=== PATIENT | male | born 1950 | race Caucasian/White ===

== ENCOUNTER → 2017-11-26 | Outpatient (RCR) | payer MEDICARE ==
[~2017-11-26] MED LIST: ATENOLOL25 MG PO; ATORVASTATIN CA40 MG PO; BYSTOLIC10 MG PO; CALCIUM 1,2001 EACH PO; CINNAMON PO; COLACE100 MG PO; CYCLOBENZAPRINE PO; CYCLOBENZAPRINE5 MG PO; ENALAPRIL PO; FLAXSEED OIL1000 M1 PO; GINKGO BILOBA120 MG PO; GLIPIZIDE-METF1 EAC2 PO; GLYBURIDE-METF1 EAC1 PO; HYDROCODONE-IBU1 TAB PO; IV ANTIBIOTIC IV; LEVAQUIN500 MG PO; NORCO 10-325 T1 EACH PO; POTASSIUM GLUCO99 M1 PO; RASPBERRY KETONES PO; SUPER B COMPLE150 MG PO; TART CHERRY CA1 EACH PO; TYLENOL WITH C1 EACH PO; VITAMIN B1 PO; VITAMIN B12 PO; VITAMIN D2000 UNIT PO; ZOFRAN ODT4 MG SL; ZYRTEC10 M1 PO
== END ==
LOC: WCC 11-19 14:45
PROVIDERS: ATTEND Internal Medicine Infectious Disease
DX: E11.621 Type 2 diabetes mellitus with foot ulcer (principal); M86.172 Other acute osteomyelitis, left ankle and foot; L97.426 Non-pressure chronic ulcer of left heel and midfoot with bone involvement without evidence of necrosis; I10 Essential (primary) hypertension; E78.2 Mixed hyperlipidemia; I48.2 Chronic atrial fibrillation
CPT/HCPCS: 11043; 11046; 36415 ×2; 82948 ×2; G0277 ×2; G0463 ×3

== ENCOUNTER → 2017-12-02 | Day surgery (SDC) | payer MEDICARE ==
[2017-12-01 12:21] LABS: BASOPHILS # (AUTO) 0.1 (0.0-0.1); BASOPHILS % 0.6 % (0.0-1.0); EOSINOPHILS # (AUTO) 0.7 (0.0-0.4); EOSINOPHILS % 9.2 % (0.0-6.0); HEMATOCRIT 30.5 % (38.2-49.6); HEMOGLOBIN 9.7 g/dL (14.0-18.0); LYMPHOCYTES # (AUTO) 1.7 (1.0-3.2); LYMPHOCYTES % 22.2 % (18.0-39.1); MEAN CORPUSCULAR HEMOGLOBIN 29.5 pg (28-32); MEAN CORPUSCULAR HGB CONC 31.8 g/dL (31-35); MEAN CORPUSCULAR VOLUME 92.7 fL (81-99); MONOCYTES # (AUTO) 0.7 (0.2-0.8); MONOCYTES % 8.3 % (4.4-11.3); NEUTROPHILS # (AUTO) 4.6 (2.1-6.9); NEUTROPHILS % 59.6 % (38.7-80.0); PLATELET COUNT 223 x10e3/uL (140-360); RED BLOOD COUNT 3.29 x10e6/uL (4.3-5.7); RED CELL DISTRIBUTION WIDTH 14.1 % (11.7-14.4)
[2017-12-01 12:40] LABS: ANION GAP 14.1 mmol/L (8-16); CALCIUM 10.4 mg/dL (8.4-10.2); CREATININE, SERUM 1.26 mg/dL (0.72-1.25)
--- NOTE | 2017-12-01 13:10 | Diagnostic Imaging Report ---
PROCEDURE:CHEST 2 VIEWS TECHNIQUE:And lateral chest INDICATION:Preoperative evaluation for diabetic left foot wound surgery. COMPARISON:None. FINDINGS: Right PICC terminating in the low SVC. Lungs are clear and no pleural effusions. Normal heart size, mediastinal contour, and pulmonary vasculature. Intact skeleton. CONCLUSION: No acute abnormality. Dictated by: Keith Whaley M.D. on 12/01/2017 at 13:19 Electronically approved by: Keith Whaley M.D. on 12/01/2017 at 13:19
[2017-12-01 13:31] LABS: POTASSIUM 6.3 mmol/L (3.5-5.1)
[~2017-12-02] MED LIST changes: +CEFAZOLIN SOD 2 GM/D5W 50ML 50 ML IV ONE; +DEXAMETHASONE SOD PHOS INJ 4 MG/ML VIAL ONE; +FENTANYL CITRATE/PF 100MCG/2 ML INJ ONE; +LIDOCAINE HCL 2% LOCAL INJ 5 ML SDV VIAL INJ ONE; +MIDAZOLAM HCL 2 MG/2 ML VIAL ONE; +ONDANSETRON HCL INJ 2 MG/ML VIAL ONE; +PROPOFOL IV EMULSION 10 MG/ML 20 ML VIAL ONE; +SEVOFLURANE INHAL SOLN 250 ML PEN BTL ONE
--- OUTSIDE RECORDS SUMMARY | 2017-12-02 06:39 | XMS REPORT ---
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 Allergies, Adverse Reactions, Alerts This patient has no known allergies or adverse reactions. Medications This patient has no known medications. Results Test Description Test Time Test Comments Text Results Atomic Results Result Comments TISSUE EXAM 2017-01-28 12:43:00 LAB AP CPT CODE (BEAKER) (test ugry=4605) 27330 ANAEROBIC [id number] 12:54:00* Test Item Value Reference Range Comments CULTURE (BEAKER) (test byrv=5520) No anaerobes isolated BLOOD [id number] 11:00:00* Test Item Value Reference Range Comments CULTURE (BEAKER) (test crot=3702) No growth in 5 days SURGICALLY OBTAINED CULTURE + GRAM [id number] 10:42:00* Test Item Value Reference Range Comments CULTURE (BEAKER) (test zrgw=1613) From Broth Only Diphtheroid GRAM STAIN RESULT (BEAKER) (test wxur=7687) <1+ WBCs GRAM STAIN RESULT (BEAKER) (test gctp=14904) No organisms seen BLOOD [id number] 06:00:00* Test Item Value Reference Range Comments CULTURE (BEAKER) (test rfqm=9694) No growth in 5 days POCT-GLUCOSE [id number] 09:17:00* Test Item Value Reference Range Comments POC-GLUCOSE METER (BEAKER) (test kpsu=2769) 140 mg/dL 70-[address] [facility] [address] [place] [address] CBC W/PLT COUNT & AUTO [id number] 06:13:00* Test Item Value Reference Range Comments WHITE BLOOD CELL COUNT (BEAKER) (test gdqr=029) 7.2 K/ L 4.0-10.0 RED BLOOD CELL COUNT (BEAKER) (test otyk=878) 2.61 M/ L 4.20-5.80 HEMOGLOBIN (BEAKER) (test otkr=883) 8.3 GM/DL 13.0-16.8 HEMATOCRIT (BEAKER) (test yxzl=659) 24.9 % 40.0-50.0 MEAN CORPUSCULAR VOLUME (BEAKER) (test xcma=258) 95.3 fL 82.0-98.0 MEAN CORPUSCULAR HEMOGLOBIN (BEAKER) (test lajm=144) 31.9 pg 27.0-33.0 MEAN CORPUSCULAR HEMOGLOBIN CONC (BEAKER) (test iieq=548) 33.5 GM/DL 32.0- 36.0 RED CELL DISTRIBUTION WIDTH (BEAKER) (test nwvm=473) 11.6 % 10.3-14.2 PLATELET COUNT (BEAKER) (test ysec=219) 250 K/CU MM 150-430 MEAN PLATELET VOLUME (BEAKER) (test zklj=152) 6.6 fL 6.5-10.5 NUCLEATED RED BLOOD CELLS (BEAKER) (test hjab=463) 0 /100 WBC 0-0 NEUTROPHILS RELATIVE PERCENT (BEAKER) (test ngao=836) 58 % LYMPHOCYTES RELATIVE PERCENT (BEAKER) (test wqcf=267) 31 % MONOCYTES RELATIVE PERCENT (BEAKER) (test xnjh=014) 6 % EOSINOPHILS RELATIVE PERCENT (BEAKER) (test inkh=843) 4 % BASOPHILS RELATIVE PERCENT (BEAKER) (test umbp=949) 1 % NEUTROPHILS ABSOLUTE COUNT (BEAKER) (test vnis=096) 4.17 K/ L 1.80-8.00 LYMPHOCYTES ABSOLUTE COUNT (BEAKER) (test ammb=863) 2.22 K/ L 1.48-4.50 MONOCYTES ABSOLUTE COUNT (BEAKER) (test mwoh=627) 0.44 K/ L 0.00-1.30 EOSINOPHILS ABSOLUTE COUNT (BEAKER) (test ftnr=018) 0.30 K/ L 0.00-0.50 BASOPHILS ABSOLUTE COUNT (BEAKER) (test tjov=970) 0.04 K/ L 0.00-0.20 0.00BASI METABOLIC [id number] 05:49:00* Test Item Value Reference Range Comments SODIUM (BEAKER) (test qiqu=714) 141 meq/L 136-145 POTASSIUM (BEAKER) (test hwmt=690) 3.7 meq/L 3.5-5.1 CHLORIDE (BEAKER) (test tioc=413) 113 meq/L 98-107 CO2 (BEAKER) (test ohug=514) 19 meq/L 22-29 BLOOD UREA NITROGEN (BEAKER) (test rhmd=976) 15 mg/dL 7-21 CREATININE (BEAKER) (test zmrb=862) 1.10 mg/dL 0.57-1.25 GLUCOSE RANDOM (BEAKER) (test xzxz=664) 100 mg/dL 70-105 CALCIUM (BEAKER) (test dpvl=596) 8.1 mg/dL 8.4-10.2 EGFR (BEAKER) (test xuey=5770) 67 mL/min/1.73 sq m ESTIMATED GFR IS NOT ACCURATE CREATININE CLEARANCE IN PREDICTING GLOMERULAR FILTRATION RATE. ESTIMATED GFR IS NOT APPLICABLE FOR DIALYSIS PATIENTS. POCT-GLUCOSE [id number] 23:38:00* Test Item Value Reference Range Comments POC-GLUCOSE METER (BEAKER) (test qskl=1653) 86 mg/dL 70-110 TESTED AT [place] [id number] POCT-GLUCOSE [id number] 22:13:00* Test Item Value Reference Range Comments POC-GLUCOSE METER (BEAKER) (test husy=9189) 88 mg/dL 70-110 TESTED AT [place] 6767230 POCT-GLUCOSE [id number] 17:17:00* Test Item Value Reference Range Comments POC-GLUCOSE METER (BEAKER) (test mtob=2044) 172 mg/dL 70-110 TESTED AT [place] 6767230 POCT-GLUCOSE [id number] 12:20:00* Test Item Value Reference Range Comments POC-GLUCOSE METER (BEAKER) (test hnyt=0409) 213 mg/dL 70-110 TESTED AT [place] 6767230 POCT-GLUCOSE [id number] 08:38:00* Test Item Value Reference Range Comments POC-GLUCOSE METER (BEAKER) (test rtcm=0128) 200 mg/dL 70-110 TESTED AT [place] 6767230 BASIC METABOLIC [id number] 05:18:00* Test Item Value Reference Range Comments SODIUM (BEAKER) (test vpjn=623) 138 meq/L 136-145 POTASSIUM (BEAKER) (test xhsf=776) 4.1 meq/L 3.5-5.1 CHLORIDE (BEAKER) (test ngxp=855) 109 meq/L 98-107 CO2 (BEAKER) (test spqs=809) 21 meq/L 22-29 BLOOD UREA NITROGEN (BEAKER) (test wfuw=859) 17 mg/dL 7-21 CREATININE (BEAKER) (test hsya=544) 1.29 mg/dL 0.57-1.25 GLUCOSE RANDOM (BEAKER) (test jefr=627) 254 mg/dL 70-105 CALCIUM (BEAKER) (test tagl=644) 8.2 mg/dL 8.4-10.2 EGFR (BEAKER) (test mdaz=4436) mL/min/1.73 sq m INSUFFICIENT CLINICAL DATA TO CALCULATE ESTIMATED GFR. CBC W/PLT COUNT & AUTO [id number] 04:58:00* Test Item Value Reference Range Comments WHITE BLOOD CELL COUNT (BEAKER) (test dnpw=183) 10.8 K/ L 4.0-10.0 RED BLOOD CELL COUNT (BEAKER) (test vvxu=680) 2.88 M/ L 4.20-5.80 HEMOGLOBIN (BEAKER) (test qtlp=091) 9.3 GM/DL 13.0-16.8 HEMATOCRIT (BEAKER) (test qzcx=866) 27.3 % 40.0-50.0 MEAN CORPUSCULAR VOLUME (BEAKER) (test aodg=676) 95.0 fL 82.0-98.0 MEAN CORPUSCULAR HEMOGLOBIN (BEAKER) (test saay=829) 32.4 pg 27.0-33.0 MEAN CORPUSCULAR HEMOGLOBIN CONC (BEAKER) (test pbfg=144) 34.1 GM/DL 32.0- 36.0 RED CELL DISTRIBUTION WIDTH (BEAKER) (test dhvp=923) 12.5 % 10.3-14.2 PLATELET COUNT (BEAKER) (test mwla=105) 261 K/CU MM 150-430 MEAN PLATELET VOLUME (BEAKER) (test xbvb=679) 6.3 fL 6.5-10.5 NUCLEATED RED BLOOD CELLS (BEAKER) (test prvw=838) 0 /100 WBC 0-0 NEUTROPHILS RELATIVE PERCENT (BEAKER) (test iwro=509) 77 % LYMPHOCYTES RELATIVE PERCENT (BEAKER) (test uksg=823) 15 % MONOCYTES RELATIVE PERCENT (BEAKER) (test jmcd=696) 7 % EOSINOPHILS RELATIVE PERCENT (BEAKER) (test bpzx=510) 1 % BASOPHILS RELATIVE PERCENT (BEAKER) (test bnfe=999) 0 % NEUTROPHILS ABSOLUTE COUNT (BEAKER) (test khew=692) 8.30 K/ L 1.80-8.00 LYMPHOCYTES ABSOLUTE COUNT (BEAKER) (test obig=205) 1.62 K/ L 1.48-4.50 MONOCYTES ABSOLUTE COUNT (BEAKER) (test brhk=959) 0.76 K/ L 0.00-1.30 EOSINOPHILS ABSOLUTE COUNT (BEAKER) (test mspe=625) 0.08 K/ L 0.00-0.50 BASOPHILS ABSOLUTE COUNT (BEAKER) (test uhdv=825) 0.02 K/ L 0.00-0.20 0.00POCT-GLUCOSE [id number] 22:11:00* Test Item Value Reference Range Comments POC-GLUCOSE METER (BEAKER) (test qtpx=4404) 276 mg/dL 70-110 TESTED AT [address] [address] POCT-GLUCOSE [id number] 17:33:00* Test Item Value Reference Range Comments POC-GLUCOSE METER (BEAKER) (test yzkg=5264) 164 mg/dL 70-110 TESTED AT [address] [address] VANCOMYCIN LEVEL, [id number] 16:06:00* Test Item Value Reference Range Comments VANCOMYCIN TROUGH (BEAKER) (test innl=477) 15.9 ug/mL 10.0-20.0 Collect before vanc dosePOCT-GLUCOSE [id number] 15:21:00* Test Item Value Reference Range Comments POC-GLUCOSE METER (BEAKER) (test fbxh=5194) 143 mg/dL 70-110 TESTED AT [address] [address] POCT-GLUCOSE [id number] 11:38:00* Test Item Value Reference Range Comments POC-GLUCOSE METER (BEAKER) (test aloe=6826) 167 mg/dL 70-110 TESTED AT [address] [address] POCT-GLUCOSE [id number] 09:36:00* Test Item Value Reference Range Comments POC-GLUCOSE METER (BEAKER) (test uzag=3851) 165 mg/dL 70-[address] [facility] [address] [facility] [address] WOUND CULTURE + GRAM [id number] 08:49:00* Test Item Value Reference Range Comments CULTURE (BEAKER) (test mvmg=8849) No growth GRAM STAIN RESULT (BEAKER) (test qnap=2744) 1+ White blood cells seen GRAM STAIN RESULT (BEAKER) (test xwzd=73992) No organisms seen CBC W/PLT COUNT & AUTO [id number] 06:11:00* Test Item Value Reference Range Comments WHITE BLOOD CELL COUNT (BEAKER) (test ohzu=879) 9.5 K/ L 4.0-10.0 RED BLOOD CELL COUNT (BEAKER) (test gjpt=907) 3.07 M/ L 4.20-5.80 HEMOGLOBIN (BEAKER) (test zjit=752) 9.5 GM/DL 13.0-16.8 HEMATOCRIT (BEAKER) (test csst=552) 29.1 % 40.0-50.0 MEAN CORPUSCULAR VOLUME (BEAKER) (test ybsw=696) 94.8 fL 82.0-98.0 MEAN CORPUSCULAR HEMOGLOBIN (BEAKER) (test mfti=241) 30.8 pg 27.0-33.0 MEAN CORPUSCULAR HEMOGLOBIN CONC (BEAKER) (test yfhg=558) 32.5 GM/DL 32.0- 36.0 RED CELL DISTRIBUTION WIDTH (BEAKER) (test hlta=209) 11.4 % 10.3-14.2 PLATELET COUNT (BEAKER) (test pwyz=545) 301 K/CU MM 150-430 MEAN PLATELET VOLUME (BEAKER) (test rvpr=866) 6.5 fL 6.5-10.5 NUCLEATED RED BLOOD CELLS (BEAKER) (test bmaw=481) 0 /100 WBC 0-0 NEUTROPHILS RELATIVE PERCENT (BEAKER) (test iosv=460) 64 % LYMPHOCYTES RELATIVE PERCENT (BEAKER) (test rqqp=520) 23 % MONOCYTES RELATIVE PERCENT (BEAKER) (test nvgv=077) 7 % EOSINOPHILS RELATIVE PERCENT (BEAKER) (test oxww=632) 5 % BASOPHILS RELATIVE PERCENT (BEAKER) (test gckp=816) 1 % NEUTROPHILS ABSOLUTE COUNT (BEAKER) (test lnra=590) 6.08 K/ L 1.80-8.00 LYMPHOCYTES ABSOLUTE COUNT (BEAKER) (test gxte=988) 2.21 K/ L 1.48-4.50 MONOCYTES ABSOLUTE COUNT (BEAKER) (test brwn=943) 0.71 K/ L 0.00-1.30 EOSINOPHILS ABSOLUTE COUNT (BEAKER) (test hgtr=082) 0.47 K/ L 0.00-0.50 BASOPHILS ABSOLUTE COUNT (BEAKER) (test zzce=162) 0.06 K/ L 0.00-0.20 0.00BASIC METABOLIC [id number] 05:38:00* Test Item Value Reference Range Comments SODIUM (BEAKER) (test unyo=283) 139 meq/L 136-145 POTASSIUM (BEAKER) (test utao=958) 3.8 meq/L 3.5-5.1 CHLORIDE (BEAKER) (test fbmg=594) 108 meq/L 98-107 CO2 (BEAKER) (test nuop=270) 24 meq/L 22-29 BLOOD UREA NITROGEN (BEAKER) (test fgtx=534) 14 mg/dL 7-21 CREATININE (BEAKER) (test clrs=068) 1.09 mg/dL 0.57-1.25 GLUCOSE RANDOM (BEAKER) (test lidu=023) 110 mg/dL 70-105 CALCIUM (BEAKER) (test bcfc=460) 8.8 mg/dL 8.4-10.2 EGFR (BEAKER) (test wyhx=7697) mL/min/1.73 sq m INSUFFICIENT CLINICAL DATA TO CALCULATE ESTIMATED GFR. [id number] 05:36:00* Test Item Value Reference Range Comments MAGNESIUM (BEAKER) (test ofdz=170) 1.7 mg/dL 1.6-2.6 POCT-GLUCOSE [id number] 21:31:00* Test Item Value Reference Range Comments POC-GLUCOSE METER (BEAKER) (test xicq=0005) 155 mg/dL 70-[address] [facility] [address] [facility] [address] POCT-GLUCOSE [id number] 18:31:00* Test Item Value Reference Range Comments POC-GLUCOSE METER (BEAKER) (test yxma=2676) 132 mg/dL 70-[address] [facility] [address] [facility] [address] POCT-GLUCOSE [id number] 12:49:00* Test Item Value Reference Range Comments POC-GLUCOSE METER (BEAKER) (test ohif=0805) 151 mg/dL 70-110 TESTED AT [place] [address] [facility] [address] POCT-GLUCOSE [id number] 08:39:00* Test Item Value Reference Range Comments POC-GLUCOSE METER (BEAKER) (test loya=8098) 171 mg/dL 70-110 TESTED AT [place] [address] [facility] [address] URINE [id number] 08:15:00* Test Item Value Reference Range Comments CULTURE (BEAKER) (test mkew=1959) No growth CBC W/PLT COUNT & AUTO [id number] 05:25:00* Test Item Value Reference Range Comments WHITE BLOOD CELL COUNT (BEAKER) (test fzup=356) 9.7 K/ L 4.0-10.0 RED BLOOD CELL COUNT (BEAKER) (test jumq=590) 2.86 M/ L 4.20-5.80 HEMOGLOBIN (BEAKER) (test rgog=073) 9.1 GM/DL 13.0-16.8 HEMATOCRIT (BEAKER) (test wlbe=020) 27.1 % 40.0-50.0 MEAN CORPUSCULAR VOLUME (BEAKER) (test nasm=010) 94.8 fL 82.0-98.0 MEAN CORPUSCULAR HEMOGLOBIN (BEAKER) (test hbfo=854) 31.8 pg 27.0-33.0 MEAN CORPUSCULAR HEMOGLOBIN CONC (BEAKER) (test zqyo=831) 33.6 GM/DL 32.0- 36.0 RED CELL DISTRIBUTION WIDTH (BEAKER) (test tual=425) 11.3 % 10.3-14.2 PLATELET COUNT (BEAKER) (test dfme=205) 298 K/CU MM 150-430 MEAN PLATELET VOLUME (BEAKER) (test onnc=464) 6.6 fL 6.5-10.5 NUCLEATED RED BLOOD CELLS (BEAKER) (test ygqc=677) 0 /100 WBC 0-0 NEUTROPHILS RELATIVE PERCENT (BEAKER) (test nuub=914) 64 % LYMPHOCYTES RELATIVE PERCENT (BEAKER) (test mprt=231) 24 % MONOCYTES RELATIVE PERCENT (BEAKER) (test rhiv=081) 7 % EOSINOPHILS RELATIVE PERCENT (BEAKER) (test xqsl=070) 5 % BASOPHILS RELATIVE PERCENT (BEAKER) (test ecub=054) 1 % NEUTROPHILS ABSOLUTE COUNT (BEAKER) (test zfig=693) 6.20 K/ L 1.80-8.00 LYMPHOCYTES ABSOLUTE COUNT (BEAKER) (test xrjr=239) 2.36 K/ L 1.48-4.50 MONOCYTES ABSOLUTE COUNT (BEAKER) (test yipx=649) 0.65 K/ L 0.00-1.30 EOSINOPHILS ABSOLUTE COUNT (BEAKER) (test apqw=275) 0.46 K/ L 0.00-0.50 BASOPHILS ABSOLUTE COUNT (BEAKER) (test zeoa=609) 0.05 K/ L 0.00-0.20 0.00BASIC METABOLIC [id number] 05:18:00* Test Item Value Reference Range Comments SODIUM (BEAKER) (test bgbp=159) 138 meq/L 136-145 POTASSIUM (BEAKER) (test qprm=695) 4.1 meq/L 3.5-5.1 CHLORIDE (BEAKER) (test twfz=876) 107 meq/L 98-107 CO2 (BEAKER) (test mmec=755) 22 meq/L 22-29 BLOOD UREA NITROGEN (BEAKER) (test vwvi=261) 15 mg/dL 7-21 CREATININE (BEAKER) (test oeps=636) 1.14 mg/dL 0.57-1.25 GLUCOSE RANDOM (BEAKER) (test hesj=848) 164 mg/dL 70-105 CALCIUM (BEAKER) (test gkjh=905) 8.9 mg/dL 8.4-10.2 EGFR (BEAKER) (test nilw=2894) mL/min/1.73 sq m INSUFFICIENT CLINICAL DATA TO CALCULATE ESTIMATED GFR. [id number] 05:16:00* Test Item Value Reference Range Comments PHOSPHORUS (BEAKER) (test lojh=707) 3.1 mg/dL 2.3-4.7 [id number] 05:16:00* Test Item Value Reference Range Comments MAGNESIUM (BEAKER) (test ubpe=699) 1.5 mg/dL 1.6-2.6 POCT-GLUCOSE [id number] 23:33:00* Test Item Value Reference Range Comments POC-GLUCOSE METER (BEAKER) (test auur=6417) 221 mg/dL 70-[address] [facility] [address] [facility] [address] VITAMIN B12 AND [id number] 19:29:00* Test Item Value Reference Range Comments VITAMIN B12 (BEAKER) (test wwgl=156) > pg/mL 213-816 FOLATE (BEAKER) (test rpfy=365) 15.7 ng/mL >=7.0 Effective 09/13/2014: Folate Reference Range ChangeNew: >=7.0 Previous: >= [id number] 19:26:00* Test Item Value Reference Range Comments FERRITIN (BEAKER) (test fqpf=511) 193 ng/mL 5-275 Effective 09/13/2014: Reference Range ChangeNew: Male 5-275 Previous: Male 22-322 Female 5-275 Female 10-291 TSH/FREE T4 IF [id number] 19:26:00* Test Item Value Reference Range Comments THYROID STIMULATING HORMONE (BEAKER) (test amhs=514) 2.98 uIU/mL 0.35-4.94 HEMOGLOBIN [id number] 18:53:00* Test Item Value Reference Range Comments HEMOGLOBIN A1C (BEAKER) (test unwh=002) 7.8 % 4.3-6.1 PROTEIN, RANDOM [id number] 18:51:00* Test Item Value Reference Range Comments PROTEIN, URINE (BEAKER) (test itrs=1858) < mg/dL 0-14 LIPID [id number] 18:50:00* Test Item Value Reference Range Comments TRIGLYCERIDES (BEAKER) (test ooso=330) 122 mg/dL CHOLESTEROL (BEAKER) (test fojl=935) 116 mg/dL HDL CHOLESTEROL (BEAKER) (test kwos=565) 33 mg/dL LDL CHOLESTEROL CALCULATED (BEAKER) (test prmj=289) 59 mg/dL Triglyceride Reference Range: Low Risk <150 Borderline 150-199 High Risk 200-499 Very High Risk >=500Cholesterol Reference Range: Low Risk <200 Borderline 200-239 High Risk >240HDL Cholesterol Reference Range: Low Risk >=60 High Risk <40LDL Cholesterol Reference Range: Optimal <100 Near Optimal 100-129 Borderline 130-159 High 160-189 Very High >=190 HEPATIC FUNCTION [id number] 18:50:00* Test Item Value Reference Range Comments TOTAL PROTEIN (BEAKER) (test drxm=655) 6.9 gm/dL 6.0-8.3 ALBUMIN (BEAKER) (test qysr=7893) 3.4 g/dL 3.5-5.0 BILIRUBIN TOTAL (BEAKER) (test oqqd=020) 0.3 mg/dL 0.2-1.2 BILIRUBIN DIRECT (BEAKER) (test htkj=872) 0.2 mg/dL 0.1-0.5 ALKALINE PHOSPHATASE (BEAKER) (test ttxt=909) 85 U/L 40-150 AST (SGOT) (BEAKER) (test etwb=004) 18 U/L 5-34 ALT (SGPT) (BEAKER) (test hhoc=293) 17 U/L 6-55 LACTATE DEHYDROGENASE (LDH)2017-01-21 18:50:00* Test Item Value Reference Range Comments LACTATE DEHYDROGENASE (BEAKER) (test exar=556) 183 U/L 125-220 IRON, TIBC, % SAT. (WITHOUT FERRITIN)2017-01-21 18:50:00* Test Item Value Reference Range Comments IRON (BEAKER) (test jbyh=286) 50 ug/dL 40-160 TOTAL IRON BINDING CAPACITY (BEAKER) (test njtb=980) 176 ug/dL 250-450 IRON % SATURATION (2) (BEAKER) (test bsfc=8035) 28 % 20-55 CREATININE, RANDOM [id number] 18:50:00* Test Item Value Reference Range Comments CREATININE URINE (BEAKER) (test emug=806) 47.8 mg/dL Reference Range: No NormalsRETICULOCYTE [id number] 18:42:00* Test Item Value Reference Range Comments RETICULOCYTE COUNT PCT (BEAKER) (test gwpr=343) 1.0 % 0.4-2.9 POCT-GLUCOSE [id number] 12:07:00* Test Item Value Reference Range Comments POC-GLUCOSE METER (BEAKER) (test xikv=3905) 184 mg/dL 70-[address] [facility] [address] [facility] [address] POCT-GLUCOSE [id number] 08:17:00* Test Item Value Reference Range Comments POC-GLUCOSE METER (BEAKER) (test vzeg=0444) 172 mg/dL 70-[address] [facility] [address] [facility] [address] URINALYSIS W/ [id number] 04:31:00* Test Item Value Reference Range Comments COLOR (BEAKER) (test yigp=101) Light Yellow CLARITY (BEAKER) (test crrr=360) Clear SPECIFIC GRAVITY UA (BEAKER) (test fwje=135) 1.010 1.001-1.035 PH UA (BEAKER) (test dcqe=193) 5.0 5.0-8.0 PROTEIN UA (BEAKER) (test clkb=715) Negative Negative GLUCOSE UA (BEAKER) (test hffm=339) 50 mg/dL Negative KETONES UA (BEAKER) (test crti=044) Negative Negative BILIRUBIN UA (BEAKER) (test iymy=102) Negative Negative BLOOD UA (BEAKER) (test mwhi=006) Negative Negative NITRITE UA (BEAKER) (test jmxy=523) Negative Negative LEUKOCYTE ESTERASE UA (BEAKER) (test whyh=302) Negative Negative UROBILINOGEN UA (BEAKER) (test vxrr=894) 0.2 mg/dL 0.2-1.0 RBC UA (BEAKER) (test ured=286) 0 /HPF WBC UA (BEAKER) (test fgah=452) < /HPF SOURCE(BEAKER) (test edhy=0778) BASIC METABOLIC [id number] 04:25:00* Test Item Value Reference Range Comments SODIUM (BEAKER) (test drxi=883) 137 meq/L 136-145 POTASSIUM (BEAKER) (test tmdh=324) 4.6 meq/L 3.5-5.1 CHLORIDE (BEAKER) (test tnsr=668) 106 meq/L 98-107 CO2 (BEAKER) (test kmwy=380) 21 meq/L 22-29 BLOOD UREA NITROGEN (BEAKER) (test wvze=819) 25 mg/dL 7-21 CREATININE (BEAKER) (test zhhn=568) 1.47 mg/dL 0.57-1.25 GLUCOSE RANDOM (BEAKER) (test izjq=475) 247 mg/dL 70-105 CALCIUM (BEAKER) (test jdmj=946) 9.0 mg/dL 8.4-10.2 EGFR (BEAKER) (test pxmn=8609) mL/min/1.73 sq m INSUFFICIENT CLINICAL DATA TO CALCULATE ESTIMATED GFR. SEDIMENTATION [id number] 01:19:00* Test Item Value Reference Range Comments SEDIMENTATION RATE, ERYTHROCYTE (BEAKER) (test aljn=589) 109 mm/HR 0-20 C-REACTIVE [id number] 00:50:00* Test Item Value Reference Range Comments C-REACTIVE PROTEIN (BEAKER) (test crfa=443) 2.78 mg/dL 0.00-0.50 POCT-LACTIC ACID, [id number] 00:10:00* Test Item Value Reference Range Comments POC-LACTIC ACID, VENOUS (BEAKER) (test mkyq=4948) 1.5 mmol/L 0.9-1.[address] [facility] [address] [facility] [address] BASIC METABOLIC [id number] 23:20:00* Test Item Value Reference Range Comments SODIUM (BEAKER) (test nbne=953) 140 meq/L 136-145 POTASSIUM (BEAKER) (test ahpi=700) 4.6 meq/L 3.5-5.1 CHLORIDE (BEAKER) (test lgsz=861) 104 meq/L 98-107 CO2 (BEAKER) (test hgle=230) 24 meq/L 22-29 BLOOD UREA NITROGEN (BEAKER) (test tjih=181) 30 mg/dL 7-21 CREATININE (BEAKER) (test tivz=146) 1.78 mg/dL 0.57-1.25 GLUCOSE RANDOM (BEAKER) (test njzx=335) 193 mg/dL 70-105 CALCIUM (BEAKER) (test tlax=793) 10.0 mg/dL 8.4-10.2 EGFR (BEAKER) (test yewd=0289) mL/min/1.73 sq m INSUFFICIENT CLINICAL DATA TO CALCULATE ESTIMATED GFR. CBC W/PLT COUNT & AUTO [id number] 23:09:00* Test Item Value Reference Range Comments WHITE BLOOD CELL COUNT (BEAKER) (test xdvv=046) 13.6 K/ L 4.0-10.0 RED BLOOD CELL COUNT (BEAKER) (test aubd=647) 3.41 M/ L 4.20-5.80 HEMOGLOBIN (BEAKER) (test pckf=982) 10.9 GM/DL 13.0-16.8 HEMATOCRIT (BEAKER) (test xclb=663) 33.2 % 40.0-50.0 MEAN CORPUSCULAR VOLUME (BEAKER) (test eefz=606) 97.1 fL 82.0-98.0 MEAN CORPUSCULAR HEMOGLOBIN (BEAKER) (test mdyb=247) 31.9 pg 27.0-33.0 MEAN CORPUSCULAR HEMOGLOBIN CONC (BEAKER) (test hxpt=929) 32.8 GM/DL 32.0- 36.0 RED CELL DISTRIBUTION WIDTH (BEAKER) (test akpr=494) 12.6 % 10.3-14.2 PLATELET COUNT (BEAKER) (test xsnu=610) 380 K/CU MM 150-430 MEAN PLATELET VOLUME (BEAKER) (test bbxq=128) 6.4 fL 6.5-10.5 NUCLEATED RED BLOOD CELLS (BEAKER) (test girh=880) 0 /100 WBC 0-0 NEUTROPHILS RELATIVE PERCENT (BEAKER) (test zcqj=490) 72 % LYMPHOCYTES RELATIVE PERCENT (BEAKER) (test vwqt=862) 17 % MONOCYTES RELATIVE PERCENT (BEAKER) (test ijex=341) 7 % EOSINOPHILS RELATIVE PERCENT (BEAKER) (test znvi=389) 4 % BASOPHILS RELATIVE PERCENT (BEAKER) (test twhn=658) 0 % NEUTROPHILS ABSOLUTE COUNT (BEAKER) (test ohet=483) 9.74 K/ L 1.80-8.00 LYMPHOCYTES ABSOLUTE COUNT (BEAKER) (test hqjz=761) 2.27 K/ L 1.48-4.50 MONOCYTES ABSOLUTE COUNT (BEAKER) (test xrou=404) 0.93 K/ L 0.00-1.30 EOSINOPHILS ABSOLUTE COUNT (BEAKER) (test xyws=301) 0.58 K/ L 0.00-0.50 BASOPHILS ABSOLUTE COUNT (BEAKER) (test qitd=843) 0.06 K/ L 0.00-0.20 0.00CHEST 2 VIEWS [facility] [address] [id number] Patient Name: KATLYN MUNSON MR # : [id number] : 1950 Age/Sex: 67/M Req #: [id number] Adm Physician: Ordered by: BETHEL ANDERSON DPM Report #: [id number] Location: OR Room/Bed: Procedure: [id number] DX/CHEST 2 VIEWS Exam Date: 12/01/17 Exam Time: 1240 REPORT STATUS: Signed PROCEDURE: CHEST 2 VIEWS TECHNIQUE: And lateral chest INDICATION: Preoperative evaluation for diabetic left foot wound surgery. COMPARISON: None. FINDINGS: Right PICC terminating in the low SVC. Lungs are clear and no pleural effusions. Normal heart size, mediastinal contour, and pulmonary vasculature. Intact skeleton. CONCLUSION: No acute abnormality. Dictated by: Matilde Whaley M.D. on 12/01/2017 at 13:19 Electronically approved by: Matilde Whaley M.D. on 12/01/2017 at 13:19 Dictated By: MATILDE WHALEY MD [id number] Transcribed By: KATE on 12/01/17 1319 COPY TO: BETHEL ANDERSON DPM
--- OUTSIDE RECORDS SUMMARY | 2017-12-02 06:39 | XMS REPORT | Clinical Summary ---
Author Author NEW [facility] Address Unknown Phone Unavailable Care Team Providers Care Apprentice Plumber Name Role Phone PCP Unavailable Allergies No Known Allergies Current Medications Prescription Sig. Disp. Refills Start End Date Status Date cetirizine (ZYRTEC) 10 MG Take 10 mg by mouth Active tablet daily. cyclobenzaprine Take 5 mg by mouth 3 Active (FLEXERIL) 5 MG tablet (three) times daily as needed for Muscle spasms. glipiZIDE-metFORMIN Take 1 tablet by mouth 2 60 tablet 3 01/26/20 Active (METAGLIP) 5-500 mg per (two) times daily before 17 tablet meals. amoxicillin-clavulanate Take 1 tablet by mouth 2 01/26/20 Discontin (AUGMENTIN) 875-125 mg (two) times daily. 17 ued per tablet glipiZIDE-metFORMIN Take 1 tablet by mouth 2 01/26/20 Discontin (METAGLIP) 5-500 mg per (two) times daily before 17 ued tablet meals. levoFLOXacin (LEVAQUIN) Take 750 mg by mouth 01/26/20 Discontin 750 MG tablet daily. 17 ued HYDROcodone-acetaminophen Take 1 tablet by mouth 01/26/20 Discontin (NORCO 7.5-325) 7.5-325 every 6 (six) hours as 17 ued mg per tablet needed for Pain. HYDROcodone-ibuprofen Take 1 tablet by mouth 30 tablet 0 01/26/20 (VICOPROFEN) 7.5-200 mg every 8 (eight) hours as 17 17 per tablet needed for Pain for up to 10 days. Max Daily Amount: 3 tablets minocycline Take 1 capsule (100 mg 20 capsule 0 01/26/20 02/05/20 (MINOCIN,DYNACIN) 100 MG total) by mouth every 12 17 17 capsule (twelve) hours for 10 days. 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 MD underlying condition Catie Perez (HCC);Cellulitis and MD Yane abscess of foot after 12/01/2016 Family History Medical History Relation Name Comments Heart disease Relation Name Status Comments Social History Tobacco Use Types Packs/Day Years Used Date Never Smoker Alcohol Use Drinks/Week oz/Week Comments No 5-6 drinks per year Sex Assigned at Date Recorded Not on file Last Filed Vital Signs Vital Sign Reading Time Taken Blood Pressure 154/79 01/25/2017 9:02 AM CDT Pulse 96 01/25/2017 9:02 AM CDT Temperature 36.3 C (97.3 F) 01/25/2017 9:02 AM CDT Respiratory Rate 19 01/25/2017 9:02 AM CDT Oxygen Saturation 97% 01/25/2017 9:02 AM CDT Inhaled Oxygen - - Concentration Weight 87.1 kg (192 lb) 01/21/2017 4:10 AM CDT Height 180.3 cm (5' 11") 01/21/2017 4:10 AM CDT Body Mass Index 26.78 01/21/2017 4:10 AM CDT Plan of Treatment Not on file Procedures Procedure Name Priority Date/Time Associated Diagnosis Comments DEBRIDEMENT/I&D,WOUND 01/23/2017 INFECTION EXTREMITY LOWER 1:20 PM CDT Special Needs (REQ:[id number]) after 12/01/2016 Results * RHYTHM STRIP - SCAN (01/28/2017 10:11 AM) * POC-Glucose meter (01/25/2017 9:09 AM) Only the most recent of 18 results within the time period is included. Component Value Ref Range POC-Glucose Meter 140 (H)Comment: TESTED AT [address] 70 - 110 mg /dL [facility] [id number] Specimen Performing Laboratory Blood [address] [address] * CBC with platelet count + automated diff (01/25/2017 4:29 AM) Only the most recent of 5 results within the time period is included. Component Value Ref Range WBC 7.2 4.0 - 10.0 K/ L RBC 2.61 (L) 4.20 - 5.80 M/ L Hemoglobin 8.3 (L) 13.0 - 16.8 GM/DL Hematocrit 24.9 (L) 40.0 - 50.0 % MCV 95.3 82.0 - 98.0 fL MCH 31.9 27.0 - 33.0 pg MCHC 33.5 32.0 - 36.0 GM/DL RDW 11.6 10.3 - 14.2 % Platelets 250 150 - 430 K/CU MM MPV 6.6 6.5 - 10.5 fL nRBC 0 0 - 0 /100 WBC % Neutros 58 % % Lymphs 31 % % Monos 6 % % Eos 4 % % Baso 1 % # Neutros 4.17 1.80 - 8.00 K/ L # Lymphs 2.22 1.48 - 4.50 K/ L # Monos 0.44 0.00 - 1.30 K/ L # Eos 0.30 0.00 - 0.50 K/ L # Baso 0.04 0.00 - 0.20 K/ L Specimen Performing Laboratory Blood - Arm, Right [address] [address] Narrative 0.00 * CBC with platelet count + automated diff (01/25/2017 4:29 AM) Only the most recent of 5 results within the time period is included. Specimen Performing Laboratory Blood Narrative The following orders were created for panel order CBC with platelet count + automated diff. Procedure Abnormality Status --------- - ------ CBC with platelet count ...[[id number]]AbnormalFinal result Please view results for these tests on the individual orders. * Basic Metabolic Panel (01/25/2017 4:29 AM) Only the most recent of 6 results within the time period is included. Component Value Ref Range Sodium 141 136 - 145 meq/L Potassium 3.7 3.5 - 5.1 meq/L Chloride 113 (H) 98 - 107 meq/L CO2 19 (L) 22 - 29 meq/L BUN 15 7 - 21 mg/dL Creatinine 1.10 0.57 - 1.25 mg/dL Glucose 100 70 - 105 mg/dL Calcium 8.1 (L) 8.4 - 10.2 mg/dL EGFR 67Comment: ESTIMATED GFR IS NOT ACCURATE mL/min/1.73 sq m CREATININE CLEARANCE IN PREDICTING GLOMERULAR FILTRATION RATE. ESTIMATED GFR IS NOT APPLICABLE FOR DIALYSIS PATIENTS. Specimen Performing Laboratory Blood - Arm, [address] [address] * Vancomycin level, trough (01/23/2017 3:25 PM) Component Value Ref Range Vancomycin Tr 15.9 10.0 - 20.0 ug/mL Specimen Performing Laboratory Blood - Arm, [address] [address] Narrative Collect before vanc dose * Tissue Exam (01/23/2017 2:32 PM) Component Value Ref Range Case Report Surgical Pathology Report Case: [id number] Authorizing Provider: Khris Khan, Ordering Provider: Khris Khan MD MD Ordering Location: [facility] Collected: 01/23/2017 1432 SERVICES Pathologist: Jared Sheth MD Received: 01/23/2017 1513 Specimen: Metatarsal, Left, 3rd metatarsal DIAGNOSIS A. BONE, LEFT, THIRD METATARASAL,RESECTION: - ULCERATED SKIN AND SUBCUTANEOUS TISSUE WITH ACUTE AND CHRONIC INFLAMMATION - UNDERLYING PARTIALLY DEVITALIZED BONE - RESECTION MARGIN WITH VIABLE BONE, GRANULATION TISSUE AND FOCAL MARROW FIBROSIS Signing Pathologist Direct Phone Line: [phone] CPT Code(s) 80925 CLINICAL HISTORY Infection SPECIMEN SOURCE 3rd metatarsal left side GROSS DESCRIPTION The specimen is received in a formalin-filled container and labeled with the patient's information and labeled "3rd metatarsal left" and consists of a metatarsal bone measuring 1.5 x 1 cm with attached hernandez-mackenzie epithelium measuring 3.6 x 1.5 cm with an excisional depth of 2 cm. Centrally, on the skin surface is an ulceration measuring 1.6 x 1 cm. Section code: A1, bone margin en face of metatarsal; A2, ulcerated skin and underlying bone submitted for decalcification. CG/pl MICROSCOPIC DESCRIPTION Performed. Specimen Performing Laboratory Tissue - Metatarsal, [place] [address] * Anaerobic culture (01/23/2017 2:29 PM) Component Value Ref Range Result No anaerobes isolated Specimen Performing Laboratory Wound - [place], [place] [address] * Surgically obtained culture + gram stain (01/23/2017 2:28 PM) Component Value Ref Range Result From Broth Only Diphtheroid (A) Gram Stain Result <1+ WBCs Gram Stain Result No organisms seen Specimen Performing Laboratory Wound - [place], [place] [address] * Magnesium (01/23/2017 4:41 AM) Only the most recent of 2 results within the time period is included. Component Value Ref Range Magnesium 1.7 1.6 - 2.6 mg/dL Specimen Performing Laboratory Blood - Arm, Right [address] [address] * Phosphorus (01/22/2017 3:57 AM) Component Value Ref Range Phosphorus 3.1 2.3 - 4.7 mg/dL Specimen Performing Laboratory Blood - Arm, Right [address] [address] * MR lower extremity without & with IV contrast left side (01/21/2017 10:55 PM) Specimen Performing Laboratory GE RIS Narrative FINAL REPORT MRI of the left forefoot without and with intravenous contrast History: Abscess and osteomyelitis Comparison: Radiograph dated January 21, 2017 Technique: Multiplanar multisequence MRI of the left forefoot was performed without and with intravenous contrast Findings: And ulceration is noted at the plantar aspect of the left forefoot, the level of the MTP joint. There is marrow signal abnormality and abnormal enhancement involving the third metatarsal head, and base, as well as shaft of the third proximal phalanx, suspicious for osteomyelitis. No joint effusion is identified at this level. The remaining osseous structures appear intact. Additionally, there is a small amount of fluid tracking along the flexor tendon of the third ray, measuring up to 2 mm in thickness, probably infectious. There is also a plantar subcutaneous fluid collection in central forefoot, at the level of metatarsal shaft, with apparent small ulceration to skin, measuring 1.1 x 0.9 x 2.2 cm, compatible with an abscess. It potentially communicates with fluid around the third toe flexor tendon. There is marked soft tissue edema in central forefoot. IMPRESSION: Findings compatible with osteomyelitis of the third metatarsal head, and third proximal phalanx, associated with an adjacent plantar soft tissue ulceration. Tenosynovitis of third flexor tendons, probably infectious. 1.1 x 0.9 x 2.2 cm plantar subcutaneous abscess in central forefoot, potentially in communication with the third flexor tendon sheath fluid. Signed: Taj Villaseñor MD Report Verified Date/Time:01/22/2017 09:08:35 Reading Location: [address] Ortho Consult Reading Room Procedure Note Interface, External Ris In - 01/22/2017 9:10 AM CDT FINAL REPORT MRI of the left forefoot without and with intravenous contrast History: Abscess and osteomyelitis Comparison: Radiograph dated January 21, 2017 Technique: Multiplanar multisequence MRI of the left forefoot was performed without and with intravenous contrast Findings: And ulceration is noted at the plantar aspect of the left forefoot, the level of the MTP joint. There is marrow signal abnormality and abnormal enhancement involving the third metatarsal head, and base, as well as shaft of the third proximal phalanx, suspicious for osteomyelitis. No joint effusion is identified at this level. The remaining osseous structures appear intact. Additionally, there is a small amount of fluid tracking along the flexor tendon of the third ray, measuring up to 2 mm in thickness, probably infectious. There is also a plantar subcutaneous fluid collection in central forefoot, at the level of metatarsal shaft, with apparent small ulceration to skin, measuring 1.1 x 0.9 x 2.2 cm, compatible with an abscess. It potentially communicates with fluid around the third toe flexor tendon. There is marked soft tissue edema in central forefoot. IMPRESSION: Findings compatible with osteomyelitis of the third metatarsal head, and third proximal phalanx, associated with an adjacent plantar soft tissue ulceration. Tenosynovitis of third flexor tendons, probably infectious. 1.1 x 0.9 x 2.2 cm plantar subcutaneous abscess in central forefoot, potentially in communication with the third flexor tendon sheath fluid. Signed: Taj Villaseñor MD Report Verified Date/Time: 01/22/2017 09:08:35 Reading Location: [facility] [id number] Ortho Consult Reading Room * Vitamin B12 and Folate (01/21/2017 6:23 PM) Component Value Ref Range Vitamin B12 >2000 (H) 213 - 816 pg/mL Folate 15.7 >=7.0 ng/mL Specimen Performing Laboratory Blood [address] [address] Narrative Effective 09/13/2014: Folate Reference Range Change New: >=7.0Previous: >=5.4 * TSH/Free T4 If Indicated (01/21/2017 6:23 PM) Component Value Ref Range TSH 2.98 0.35 - 4.94 uIU/mL Specimen Performing Laboratory Blood [address] [address] * Iron, TIBC, % sat. (without ferritin) (01/21/2017 6:23 PM) Component Value Ref Range Iron 50 40 - 160 ug/dL TIBC 176 (L) 250 - 450 ug/dL Iron % Saturation 28 20 - 55 % Specimen Performing Laboratory [address] [address] * Reticulocyte count (01/21/2017 6:23 PM) Component Value Ref Range % Retic 1.0 0.4 - 2.9 % Specimen Performing Laboratory [address] [address] * Lactate dehydrogenase (LDH) (01/21/2017 6:23 PM) Component Value Ref Range LDH 183 125 - 220 U/L Specimen Performing Laboratory Blood [address] [address] * Hemoglobin A1c (01/21/2017 6:23 PM) Component Value Ref Range Hemoglobin A1C 7.8 (H) 4.3 - 6.1 % Specimen Performing Laboratory [address] [address] * Ferritin (01/21/2017 6:23 PM) Component Value Ref Range Ferritin 193 5 - 275 ng/mL Specimen Performing Laboratory [address] [address] Narrative Effective 09/13/2014: Reference Range Change New: Male 5-275Previous: Male Female 5-275Female * Hepatic function panel (01/21/2017 6:23 PM) Component Value Ref Range Protein, Total 6.9 6.0 - 8.3 gm/dL Albumin 3.4 (L) 3.5 - 5.0 g/dL Total Bilirubin 0.3 0.2 - 1.2 mg/dL Bilirubin, Direct 0.2 0.1 - 0.5 mg/dL Alkaline Phosphatase 85 40 - 150 U/L AST 18 5 - 34 U/L ALT 17 6 - 55 U/L Specimen Performing Laboratory [address] [address] * Lipid panel (01/21/2017 6:23 PM) Component Value Ref Range Triglycerides 122 mg/dL Cholesterol 116 mg/dL HDL 33 mg/dL LDL Calculated 59 mg/dL Specimen Performing Laboratory [address] [address] Narrative Triglyceride Reference Range: Low Risk <150 [id number] High Risk 200-499 Very High Risk>=500 Cholesterol Reference Range: Low Risk <200 Kluhcracak121-527 High Risk>240 HDL Cholesterol Reference Range: Low Risk >=60 High Risk <40 LDL Cholesterol Reference Range: Optimal<100 Near [id number] [id number] [id number] Very High >=190 * Protein, random urine (01/21/2017 6:22 PM) Component Value Ref Range Protein, Urine <7 0 - 14 mg/dL Specimen Performing Laboratory Urine - Urine, [facility] [address] [place] [address] * Creatinine, random urine (01/21/2017 6:22 PM) Component Value Ref Range Creatinine, Ur 47.8 mg/dL Specimen Performing Laboratory Urine - Urine, [facility] [address] [place] [address] Narrative Reference Range: No Normals * US renal complete (01/21/2017 4:18 PM) Specimen Performing Laboratory GE RIS Narrative FINAL REPORT HISTORY : Renal failure COMPARISON : None COMMENT : Limited ultrasound examination of the retroperitoneum was performed. The right kidney measures 11.2 x 5.6 x 5.8 cm in size with a renal cortical thickness of 1.4 cm.The left kidney measures 11.1 x 6.0 x 4.7 cm in sizewith a renal cortical thickness of 1.3 cm.There is no evidence of cysts, stones, contour deforming masses or hydronephrosis.The bladder is well distended without evidence of stones, wall thickening or focal masses. Adjacent to the bladder, there is a rounded fluid-filled density that most likely represents the bulb for a prosthesis reservoir. The findings should be correlated with the patient's history. Blood flow is identified in the kidneys bilaterally. IMPRESSION : No sonographic abnormalities of the kidneys identified. Signed: Ani Lipscomb MD Report Verified Date/Time:01/21/2017 16:33:42 Reading Location: [address] Ultrasound Reading Room Procedure Note Interface, External Ris In - 01/21/2017 4:35 PM CDT FINAL REPORT HISTORY : Renal failure COMPARISON : None COMMENT : Limited ultrasound examination of the retroperitoneum was performed. The right kidney measures 11.2 x 5.6 x 5.8 cm in size with a renal cortical thickness of 1.4 cm. The left kidney measures 11.1 x 6.0 x 4.7 cm in size with a renal cortical thickness of 1.3 cm. There is no evidence of cysts, stones, contour deforming masses or hydronephrosis. The bladder is well distended without evidence of stones, wall thickening or focal masses. Adjacent to the bladder, there is a rounded fluid-filled density that most likely represents the bulb for a prosthesis reservoir. The findings should be correlated with the patient's history. Blood flow is identified in the kidneys bilaterally. IMPRESSION : No sonographic abnormalities of the kidneys identified. Signed: Ani Lipscomb MD Report Verified Date/Time: 01/21/2017 16:33:42 Reading Location: [address] Ultrasound Reading Room * ECG 12 lead (01/21/2017 9:15 AM) Specimen Performing Laboratory [facility]ter MUSE Narrative Ventricular Rate 102 BPM Atrial Rate 102 BPM P-R Interval 180 ms QRS Duration 96 ms Q-T Interval 360 ms QTC Calculation(Bazett) 469 ms P Fall[place]ber 61 degrees R Fall[place]ber 12 degrees T [place]ber 30 degrees Sinus tachycardia Inferior infarct , age undetermined Prolonged QT Abnormal ECG No previous ECGs available Confirmed by fellow Nguyen Peck ([id number]) on 01/22/2017 8:52:06 AM Confirmed by MD SAMUELS YOCHAI [id number]) on 01/22/2017 11:40:57 AM Procedure Note Interface, External Ris In - 01/22/2017 11:41 AM CDT Ventricular Rate 102 BPM Atrial Rate 102 BPM P-R Interval 180 ms QRS Duration 96 ms Q-T Interval 360 ms QTC Calculation(Bazett) 469 ms P [place] 61 degrees R [place]ber 12 degrees T [place] 30 degrees Sinus tachycardia Inferior infarct , age undetermined Prolonged QT Abnormal ECG No previous ECGs available Confirmed by fellow Nguyen Peck ([id number]) on 01/22/2017 8:52:06 AM Confirmed by MD SAMUELS YOCHAI ([id number]) on 01/22/2017 11:40:57 AM * Urinalysis w/Microscopic (01/21/2017 3:42 AM) Component Value Ref Range Color, UA Light Yellow Clarity, UA Clear Specific [place], UA 1.010 1.001 - 1.035 pH, UA 5.0 5.0 - 8.0 Protein, UA Negative Negative Glucose, UA 50 mg/dL (A) Negative Ketones, UA Negative Negative Bilirubin, UA Negative Negative Blood, UA Negative Negative Nitrite, UA Negative Negative Leukocytes, UA Negative Negative Urobilinogen, UA 0.2 0.2 - 1.0 mg/dL RBC, UA 0 /HPF WBC, UA <1 /HPF Specimen Source Specimen Performing Laboratory Urine [facility] [address] [place] [address] * Urine culture (01/21/2017 3:42 AM) Component Value Ref Range Result No growth Specimen Performing Laboratory Urine - Urine, Clean [facility] [address] [place] [address] * Blood culture (01/21/2017 12:31 AM) Only the most recent of 2 results within the time period is included. Component Value Ref Range Result No growth in 5 days Specimen Performing Laboratory Blood - Arm, Left [facility] [address] [place] [address] * XR foot 3 views left (01/21/2017 12:12 AM) Specimen Performing Laboratory GE RIS Narrative FINAL REPORT RAD, FOOT, MIN 3 VIEWS, LEFT CLINICAL INDICATION:diabetic foot ulcer, consider osteo COMPARISON: None FINDINGS: Frontal, oblique and lateral views of the left foot. There is diffuse demineralization. Mild degenerative changes are noted in the articular spaces. A plantar ulcer is evident distally. No underlying osseous erosion is detected. Vascular calcifications are present. IMPRESSION: No visible cortical erosion to suggest the presence of osteomyelitis. However, given limited visualization of the plantar images, MR examination or nuclear medicine scintigraphy may be considered for additional characterization. Signed: JR Washington Robert MD Report Verified Date/Time:01/21/2017 00:36:55 Reading Location: [address] Reading Room Procedure Note Interface, External Ris In - 01/21/2017 12:39 AM CDT FINAL REPORT RAD, FOOT, MIN 3 VIEWS, LEFT CLINICAL INDICATION: diabetic foot ulcer, consider osteo COMPARISON: None FINDINGS: Frontal, oblique and lateral views of the left foot. There is diffuse demineralization. Mild degenerative changes are noted in the articular spaces. A plantar ulcer is evident distally. No underlying osseous erosion is detected. Vascular calcifications are present. IMPRESSION: No visible cortical erosion to suggest the presence of osteomyelitis. However, given limited visualization of the plantar images, MR examination or nuclear medicine scintigraphy may be considered for additional characterization. Signed: JR Washington Robert MD Report Verified Date/Time: 01/21/2017 00:36:55 Reading Location: [address] Transitional Reading Room * C-Reactive Protein (01/21/2017 12:06 AM) Component Value Ref Range CRP 2.78 (H) 0.00 - 0.50 mg/dL Specimen Performing Laboratory Blood - Arm, [address] [address] * Wound culture (01/21/2017 12:06 AM) Component Value Ref Range Result No growth Gram Stain Result 1+ White blood cells seen Gram Stain Result No organisms seen Specimen Performing Laboratory Wound - Foot, [address] [address] * Sedimentation rate (01/21/2017 12:06 AM) Component Value Ref Range Sed Rate 109 (H) 0 - 20 mm/HR Specimen Performing Laboratory Blood - Arm, [address] [address] * POC-Lactic Acid, Venous (01/21/2017 12:05 AM) Component Value Ref Range POC-Lactic Acid, Venous 1.5Comment: TESTED AT [address] 0.9 - 1.7 mmol/[place] [address] Specimen Performing Laboratory Blood [address] [address] after 12/01/2016
--- OUTSIDE RECORDS SUMMARY | 2017-12-02 06:39 | XMS REPORT | Continuity of Care Document ---
Author Author [facility] Organization [facility] Address [address] [place] [place] [address] Phone Unavailable Care Team Providers Care Sheet Catcher Name Role Phone NO, PCP PCP Unavailable Insurance Providers Guarantor Husam Munson Address [address] [place] [address] [address], [place] [address] Email [email or web address] [email or web address] Medicare A & B Policy Number [id number] Subscriber's Name Husam Munson Relationship 18 Self / Same As Patient Payer [facility] Policy Number [id number] Subscriber's Name Husam Munson Relationship 18 Self / Same As Patient Advance Directives Directive Response Recorded Date/Time Does the patient have an advance directive? No 02/27/15 5:27pm If yes, is advance directive on file with [facility]? No 09/09/14 2:52pm If not on file with [facility] will patient provide a copy? No 09/09/14 2:52pm Do you have a Directive to Physician? No 11/19/17 10:25am Do you have a Medical Power of Hadoop Software Engineer? No 11/19/17 10:25am Do you have an out of hospital Do Not Resuscitate Order? No 11/19/17 10:25am Do you have any special needs we should be aware of? No 11/19/17 10:25am Do you have a support person here with you today? No 11/19/17 10:25am Did patient receive Notice of Privacy Practices? Yes 11/19/17 10:25am Did patient receive patient rights and responsibilities? Yes 11/19/17 10:25am Problems No problem information available. Medications Current Home Medications Medication Dose Units Route Directions Days Qty Instructions Start Date Acetaminophen With Codeine (Tylenol With Codeine #3 Tablet) 1 Each Tablet 300 Mg Oral Every 4 Hours as needed for Pain Atenolol 25 Mg Tablet 25 Mg Oral Daily Calcium Carb/Vit D3/Minerals (Calcium 1,200 Mg Tablet Chew) 1 Each Tab.chew Oral Twice A Day Cetirizine Hcl (Zyrtec) 10 Mg Tab.chew 10 Mg Oral Daily Cholecalciferol (Vitamin D3) (Vitamin D) 2,000 Unit Capsule 2,000 Unit Oral Twice A Day Cinnamon 1,000 Mg Oral Twice A Day Cyclobenzaprine 5 Mg Oral Three Times A Day Docusate Sodium (Colace) 100 Mg Cap 100 Mg Oral Daily 30 Cap Enalapril 2.5 Mg Oral Daily Flaxseed Oil 1,000 Mg Capsule 1,200 Mg Oral Twice A Day Ginkgo Biloba 120 Mg Tablet 120 Mg Oral Twice A Day Glipizide/Metformin Hcl (Glipizide-Metformin 5-500 Mg) 1 Each Tablet Oral Twice A Day Levofloxacin (Levaquin) 500 Mg Tablet 500 Mg Oral Daily 7 Days Ondansetron (Zofran Odt) 4 Mg Tab.rapdis 4 Mg Sublingual Every 4 Hours as needed for Nausea And Vomiting Potassium Gluconate 99 Mg Tablet.er 99 Mg Oral Daily Raspberry Ketones Oral Twice A Day Vit C/Ugalde & Celery Ex/Grp E (Tart Ugalde Capsule) 1 Each Capsule Oral Daily Vitamin B Complex & Vit C No.4 (Super B Complex) 150 Mg Tablet 150 Mg Oral Twice A Day Vitamin B1 Oral Twice A Day Vitamin B12 5,000 Mcg Oral Twice A Day Past Home Medications Medication Directions Ordered Status Hydrocodone Bit/Ibuprofen (Hydrocodone-Ibuprofen 7.5-200) 1 Tab Tab, Oral As Needed Discontinued Family History Relationship Condition Age at Onset Recorded Date/Time 33 Father Family history of diabetes mellitus 40's - 50 02/27/2015 5:45pm Social History Social History Problem Response Recorded Date/Time Onset Date Status Hx Psychiatric Problems No 02/27/2015 5:27pm Not Applicable Not Applicable Hx Eating Disorder No 02/27/2015 5:27pm Not Applicable Not Applicable Hx Substance Use Disorder No 02/27/2015 5:27pm Not Applicable Not Applicable Hx Depression No 02/27/2015 5:27pm Not Applicable Not Applicable Hx Alcohol Use No 02/27/2015 5:27pm Not Applicable Not Applicable Hx Substance Use Treatment No 02/27/2015 5:27pm Not Applicable Not Applicable Hx Physical Abuse No 02/27/2015 5:27pm Not Applicable Not Applicable Hospital Discharge Instructions No hospital discharge instruction information available. Plan of Care Prescriptions See Medication Section Functional Status No functional status information available. Allergies, Adverse Reactions, Alerts No known allergies. Immunizations No immunization information available. Vital Signs No vital sign information available. Results Laboratory Results Test Name Result Units Flags Reference Collection Date/Time Result Date/ Time Comments Bedside Glucose 285 mg/dL H 70-120 11/26/2017 11:06am 11/26/2017 1:32pm Meter ID: [id number] Procedures No procedure information available. Encounters Encounter Location Arrival/Admit Date Discharge/Depart Date Attending Provider Discharged [facility]ring [facility] 11/26/17 9:09am 11/26/17 11:59pm GLENN DONNELLY MD
--- OUTSIDE RECORDS SUMMARY | 2017-12-02 06:39 | XMS REPORT | Clinical Summary ---
Author Author [facility] Organization [facility] Address Unknown Phone Unavailable Care Team Providers Care Net Repairer Name Role Phone Asked, Pcp PCP Unavailable Allergies Not on File Current Medications Not on file Active Problems Not on file Encounters Date Type Specialty Care Team Description 07/31/2017 Transcribe Physical Therapy Katlyn Carey MD Primary osteoarthritis of Orders right hip (Primary Dx) after 12/01/2016 Social History Tobacco Use Types Packs/Day Years Used Date Never Assessed Sex Assigned at Date Recorded Not on file Last Filed Vital Signs Not on file Plan of Treatment Health Maintenance Due Date Last Done Comments COLONOSCOPY 2002 ZOSTER VACCINE 2012 INFLUENZA VACCINE 05/27/2017 PNEUMOCOCCAL 2017 POLYSACCHARIDE VACCINE AGE 65 AND OVER PNEUMOCOCCAL-13 2017 Results Not on fileafter 12/01/2016 Insurance Payer Benefit Subscriber ID Type Phone Address Plan / Group AARP AARP [id number] Commercial SUPPLEMENT MEDICARE MEDICARE [id number] Medicare [place], [place] PART A AND B Home: [facility] [address] [place] [id number]
--- NOTE | 2017-12-02 10:02 | Operative Report ---
DATE OF PROCEDURE: December 02, 2017 CHRISTIAN SCIENCE PRACTITIONER: None PREOPERATIVE DIAGNOSES 1. Full-thickness ulcer, grade 3 of dorsal aspect of the foot, 5 x 6 extending into the plantar aspect of the foot about 5 cm. 2. Full-thickness ulcer, plantar aspect of the foot, 2 x 2 extending into the 1st intermetatarsal space about 4 cm. 3. Osteomyelitis. 4. 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 PROCEDURES 1. Excisional debridement to include bone of ulcers. 2. Second metatarsal head osteotomy with head resection. 3. Packing of Integra graft with wound VAC. PATHOLOGY: Culture and sensitivities, removed head sent for pathology. ANESTHESIA: General anesthetic. HEMOSTASIS: None. ESTIMATED BLOOD LOSS: Less than 10 mL. MATERIALS: Two Integra grafts, 4 x 5's to pack the deficits. COMPLICATIONS: None. CONDITION: Stable. PROCEDURE IN DETAIL: Under mild sedation, the patient was brought to the operating room and placed on the operating table in the supine position. Following IV sedation with a general anesthetic at this point, the left foot was scrubbed, prepped and draped in the usual aseptic manner. The leg was lowered to the table. Excisional debridement of nonviable tissue of the foot to include bone. Attention was directed to the left foot where utilizing a combination of curette, 15 blade, bone rongeur, all nonviable tissue was removed down to clean granular tissue. Once the wound bed was about 90% granular, the area was then flushed with copious chicken dresser. Second metatarsal osteotomy. At this point, it was noted that the 2nd metatarsal was continued to be plantar flexed and to create an area of pressure. Utilizing an oscillating saw, an osteotomy was performed. The 2nd metatarsal head was then removed. It was passed from the operating table and sent for pathology. The area was also flushed with copious irrigation. At this point, two 4 x 5's Integra grafts were used in order to pack the deficit. They were secured utilizing rae. Then a wound VAC will be applied in the PACU in order to continue to granulate the wound and to heal the wound. The patient tolerated the procedure and anesthesia well without complications. Was transferred to the recovery room with vital signs stable and vascular status intact to both feet. The patient will be discharged home when he meets criteria. He was given instructions to be strictly nonweightbearing, and to follow up in wound care. Leave the wound VAC intact. He will continue IV antibiotics and continue to do hyperbaric therapy in order to do limb salvage. Job#: [id number] ANIBAL
== END | disposition home or self-care (01) ==
LOC: OR 06:36
PROVIDERS: ATTEND Podiatrist Foot & Ankle Surgery
DX: M86.172 Other acute osteomyelitis, left ankle and foot (principal); M86.672 Other chronic osteomyelitis, left ankle and foot; L97.524 Non-pressure chronic ulcer of other part of left foot with necrosis of bone; E11.40 Type 2 diabetes mellitus with diabetic neuropathy, unspecified; E11.51 Type 2 diabetes mellitus with diabetic peripheral angiopathy without gangrene; D64.9 Anemia, unspecified; I10 Essential (primary) hypertension; I48.91 Unspecified atrial fibrillation; K21.9 Gastro-esophageal reflux disease without esophagitis; G89.29 Other chronic pain; Z01.810 Encounter for preprocedural cardiovascular examination; Z01.812 Encounter for preprocedural laboratory examination; Z01.818 Encounter for other preprocedural examination
CPT/HCPCS: 11044; 15275; 15276; 28112; 36415 ×2; 71046; 80048; 84132; 85025; 87071; 87075; 87205; 88305; 88311; 93005; J1100; J2001; J2250; J2405; Q4104

== ENCOUNTER → 2017-12-24 | Outpatient (RCR) | payer MEDICARE ==
[~2017-12-24] MED LIST changes: +BACITRACIN 50,000 UNIT VIAL ONE; +BUPIVACAINE HCL 0.5% INJ 30 ML VIAL INJ ONE; -CEFAZOLIN SOD 2 GM/D5W 50ML 50 ML IV ONE; -DEXAMETHASONE SOD PHOS INJ 4 MG/ML VIAL ONE; -FENTANYL CITRATE/PF 100MCG/2 ML INJ ONE; -LIDOCAINE HCL 2% LOCAL INJ 5 ML SDV VIAL INJ ONE; -MIDAZOLAM HCL 2 MG/2 ML VIAL ONE; +MINERAL OIL/PETROLAT/GLYCERI 6OZ BTL ONE; -ONDANSETRON HCL INJ 2 MG/ML VIAL ONE; -PROPOFOL IV EMULSION 10 MG/ML 20 ML VIAL ONE; -SEVOFLURANE INHAL SOLN 250 ML PEN BTL ONE
== END ==
LOC: WCC 11-27 10:21
PROVIDERS: ATTEND Internal Medicine Infectious Disease
DX: E11.621 Type 2 diabetes mellitus with foot ulcer (principal); L97.426 Non-pressure chronic ulcer of left heel and midfoot with bone involvement without evidence of necrosis; F40.240 Claustrophobia; M86.172 Other acute osteomyelitis, left ankle and foot; I48.2 Chronic atrial fibrillation; I10 Essential (primary) hypertension; E78.2 Mixed hyperlipidemia
CPT/HCPCS: 11042; 36415 ×15; 82948 ×15; 97605 ×2; 99211; 99212; 99213 ×2; G0277 ×17

== ENCOUNTER 2018-01-21 10:26 | Outpatient (RCR) | payer MEDICARE ==
[2018-01-01 11:05] LABS: BASOPHILS # (AUTO) 0.1 (0.0-0.1); BASOPHILS % 0.5 % (0.0-1.0); EOSINOPHILS # (AUTO) 0.7 (0.0-0.4); EOSINOPHILS % 8.1 % (0.0-6.0); HEMATOCRIT 31.6 % (38.2-49.6); HEMOGLOBIN 10.4 g/dL (14.0-18.0); LYMPHOCYTES # (AUTO) 1.8 (1.0-3.2); LYMPHOCYTES % 19.4 % (18.0-39.1); MEAN CORPUSCULAR HEMOGLOBIN 29.9 pg (28-32); MEAN CORPUSCULAR HGB CONC 32.9 g/dL (31-35); MEAN CORPUSCULAR VOLUME 90.8 fL (81-99); MONOCYTES # (AUTO) 0.7 (0.2-0.8); NEUTROPHILS # (AUTO) 5.9 (2.1-6.9); NEUTROPHILS % 63.9 % (38.7-80.0); PLATELET COUNT 243 x10e3/uL (140-360); RED BLOOD COUNT 3.48 x10e6/uL (4.3-5.7); RED CELL DISTRIBUTION WIDTH 14.1 % (11.7-14.4)
[2018-01-01 11:28] LABS: ALANINE AMINOTRANSFERASE 53 IU/L (0-55); ALBUMIN 4.2 g/dL (3.5-5.0); ALBUMIN/GLOBULIN RATIO 1.1 (0.8-2.0); ALKALINE PHOSPHATASE 87 IU/L (40-150); ANION GAP 12.8 mmol/L (8-16); BLOOD UREA NITROGEN 39 mg/dL (7-26); BUN/CREATININE RATIO 33 (6-25); CALCIUM 10.1 mg/dL (8.4-10.2); CARBON DIOXIDE 28 mmol/L (22-29); CHLORIDE 101 mmol/L (98-107); CREATININE, SERUM 1.19 mg/dL (0.72-1.25); EST GLOMERULAR FILTRATION RATE > 60 ML/MIN (60-); GLUCOSE 169 mg/dL (74-118); POTASSIUM 4.8 mmol/L (3.5-5.1); SODIUM 137 mmol/L (136-145)
[2018-01-01 12:02] LABS: ERYTHROCYTE SEDIMENTATION RATE 42 mm/hr (0-13)
[~2018-01-21 10:26] MED LIST changes: -BACITRACIN 50,000 UNIT VIAL ONE; -BUPIVACAINE HCL 0.5% INJ 30 ML VIAL INJ ONE; +MUPIROCIN 2% OINT 22 GM TUBE ONE
[2018-01-21] MEDS ORDERED: MINERAL OIL/PETROLAT/GLYCERI 6OZ BTL ONE (13:43)
== END 2018-01-24 ==
LOC: WCC 10:26
PROVIDERS: ATTEND Internal Medicine Infectious Disease
DX: E11.622 Type 2 diabetes mellitus with other skin ulcer (principal); E11.621 Type 2 diabetes mellitus with foot ulcer; L97.426 Non-pressure chronic ulcer of left heel and midfoot with bone involvement without evidence of necrosis; L98.492 Non-pressure chronic ulcer of skin of other sites with fat layer exposed; M86.172 Other acute osteomyelitis, left ankle and foot; I10 Essential (primary) hypertension; F40.240 Claustrophobia; I48.2 Chronic atrial fibrillation; E78.2 Mixed hyperlipidemia
CPT/HCPCS: 11042; 11045; 15275 ×2; 36415 ×15; 80053; 82948 ×16; 83036; 84134; 85025; 85651; 99213; G0277 ×20; Q4131 ×2

== ENCOUNTER → 2018-02-23 | Outpatient (RCR) | payer MEDICARE ==
[~2018-02-23] MED LIST changes: -MUPIROCIN 2% OINT 22 GM TUBE ONE
== END ==
LOC: WCC 01-26 11:14
PROVIDERS: ATTEND Podiatrist Foot & Ankle Surgery
DX: E11.621 Type 2 diabetes mellitus with foot ulcer (principal); E11.622 Type 2 diabetes mellitus with other skin ulcer; M86.172 Other acute osteomyelitis, left ankle and foot; L97.426 Non-pressure chronic ulcer of left heel and midfoot with bone involvement without evidence of necrosis; L98.492 Non-pressure chronic ulcer of skin of other sites with fat layer exposed; I10 Essential (primary) hypertension; I48.2 Chronic atrial fibrillation; E78.2 Mixed hyperlipidemia; F40.240 Claustrophobia
CPT/HCPCS: 15275 ×2; 36415 ×12; 82948 ×12; 97597; 99212; G0277 ×13; Q4121; Q4131

== ENCOUNTER 2018-03-18 11:50 | Outpatient (RCR) | payer MEDICARE ==
[2018-03-25] MEDS ORDERED: MINERAL OIL/PETROLAT/GLYCERI 6OZ BTL ONE (12:16)
== END 2018-03-26 ==
LOC: WCC 11:50
PROVIDERS: ATTEND Internal Medicine Infectious Disease
DX: E11.621 Type 2 diabetes mellitus with foot ulcer (principal); E11.622 Type 2 diabetes mellitus with other skin ulcer; M86.172 Other acute osteomyelitis, left ankle and foot; L97.426 Non-pressure chronic ulcer of left heel and midfoot with bone involvement without evidence of necrosis; L98.492 Non-pressure chronic ulcer of skin of other sites with fat layer exposed; I10 Essential (primary) hypertension; I48.2 Chronic atrial fibrillation; E78.2 Mixed hyperlipidemia; F40.240 Claustrophobia
CPT/HCPCS: 11042; 15275; 36415 ×4; 82948 ×4; 97597; 99213; G0277 ×6; Q4121

== ENCOUNTER 2018-04-15 14:27 | Outpatient (RCR) | payer MEDICARE ==
[~2018-04-15 14:27] MED LIST changes: -MINERAL OIL/PETROLAT/GLYCERI 6OZ BTL ONE
== END 2018-04-25 ==
LOC: WCC 14:27
PROVIDERS: ATTEND Internal Medicine Infectious Disease
DX: E11.621 Type 2 diabetes mellitus with foot ulcer (principal); M86.172 Other acute osteomyelitis, left ankle and foot; L97.426 Non-pressure chronic ulcer of left heel and midfoot with bone involvement without evidence of necrosis; I10 Essential (primary) hypertension; B96.4 Proteus (mirabilis) (morganii) as the cause of diseases classified elsewhere; E78.2 Mixed hyperlipidemia; I48.2 Chronic atrial fibrillation
CPT/HCPCS: 87071; 87075; 87186; 87205

== ENCOUNTER 2018-06-24 15:10 | Outpatient (RCR) | payer MEDICARE ==
[~2018-06-24 15:10] MED LIST changes: +LIDOCAINE VISC 2% SOLN 15 ML UDC ONE
[2018-06-24] MEDS ORDERED: MINERAL OIL/PETROLAT/GLYCERI 6OZ BTL ONE (18:37)
== END 2018-06-26 ==
LOC: WCC 15:10
PROVIDERS: ATTEND Internal Medicine Infectious Disease
DX: E11.621 Type 2 diabetes mellitus with foot ulcer (principal); M86.172 Other acute osteomyelitis, left ankle and foot; L97.426 Non-pressure chronic ulcer of left heel and midfoot with bone involvement without evidence of necrosis; L97.421 Non-pressure chronic ulcer of left heel and midfoot limited to breakdown of skin; B96.4 Proteus (mirabilis) (morganii) as the cause of diseases classified elsewhere; I10 Essential (primary) hypertension; E78.2 Mixed hyperlipidemia; I48.2 Chronic atrial fibrillation
CPT/HCPCS: 11042 ×2; 15275; 99212; 99213; Q4131

== ENCOUNTER 2018-07-22 12:05 | Outpatient (RCR) | payer MEDICARE ==
[~2018-07-22 12:05] MED LIST changes: -LIDOCAINE VISC 2% SOLN 15 ML UDC ONE
== END 2018-07-26 ==
LOC: WCC 12:05
PROVIDERS: ATTEND Podiatrist Foot & Ankle Surgery
DX: E11.621 Type 2 diabetes mellitus with foot ulcer (principal); M86.172 Other acute osteomyelitis, left ankle and foot; L97.421 Non-pressure chronic ulcer of left heel and midfoot limited to breakdown of skin; L97.426 Non-pressure chronic ulcer of left heel and midfoot with bone involvement without evidence of necrosis; I10 Essential (primary) hypertension; I48.2 Chronic atrial fibrillation; E78.2 Mixed hyperlipidemia

== ENCOUNTER → 2018-08-20 | Day surgery (SDC) | payer MEDICARE ==
[2018-08-19 14:23] LABS: BASOPHILS % 0.5 % (0.0-1.0); EOSINOPHILS # (AUTO) 0.6 (0.0-0.4); EOSINOPHILS % 7.1 % (0.0-6.0); HEMATOCRIT 34.4 % (38.2-49.6); HEMOGLOBIN 11.3 g/dL (14.0-18.0); LYMPHOCYTES % 24.6 % (18.0-39.1); MEAN CORPUSCULAR HEMOGLOBIN 31.4 pg (28-32); MEAN CORPUSCULAR HGB CONC 32.8 g/dL (31-35); MEAN CORPUSCULAR VOLUME 95.6 fL (81-99); MONOCYTES # (AUTO) 0.8 (0.2-0.8); MONOCYTES % 9.8 % (4.4-11.3); NEUTROPHILS # (AUTO) 4.7 (2.1-6.9); NEUTROPHILS % 57.8 % (38.7-80.0); PLATELET COUNT 191 x10e3/uL (140-360); RED CELL DISTRIBUTION WIDTH 12.2 % (11.7-14.4)
[2018-08-19 14:40] LABS: ANION GAP 15.2 mmol/L (8-16); CREATININE, SERUM 1.34 mg/dL (0.72-1.25); POTASSIUM 5.2 mmol/L (3.5-5.1)
[~2018-08-20] MED LIST changes: +ACETAMINOPHEN 1000 MG/100 ML IV ONE; +BACITRACIN 50,000 UNIT VIAL ONE; +BUPIVACAINE HCL 0.5% INJ 30 ML VIAL INJ ONE; +CEFAZOLIN SOD 2 GM/D5W 50ML 50 ML IV ONE; +DEXAMETHASONE SOD PHOS INJ 4 MG/ML VIAL ONE; +EPHEDRINE SULFATE INJ 50 MG/10 ML SYR ONE; +FENTANYL CITRATE/PF 100MCG/2 ML INJ ONE; +GLYCOPYRROLATE INJ 1MG/ 5 ML SYR ONE; +LIDOCAINE HCL 2% LOCAL INJ 5 ML SDV VIAL INJ ONE; +MIDAZOLAM HCL 2 MG/2 ML VIAL ONE; +NEOSTIGMINE 1 MG/ML 10ML VIAL ONE; +ONDANSETRON HCL INJ 2 MG/ML VIAL ONE; +PROPOFOL IV EMULSION 10 MG/ML 20 ML VIAL ONE; +SEVOFLURANE INHAL SOLN 250 ML PEN BTL ONE; +TIZANIDINE HCL4 MG PO; +VICOPROFEN PO
--- OUTSIDE RECORDS SUMMARY | 2018-08-20 05:33 | XMS REPORT | Clinical Summary ---
Author Author [facility] Address Unknown Phone Unavailable Care Team Providers Care Manager Ethics Name Role Phone PCP Unavailable Allergies No [...] (two) times daily before 17 tablet meals. Active Problems Problem Noted Date Cellulitis and abscess of foot 01/21/2017 Diabetic foot ulcer (HCC) 01/21/2017 Family History Medical History Relation Name Comments Heart disease Relation Name Status Comments Social History Tobacco Use Types Packs/Day Years Used Date Never Smoker Alcohol Use Drinks/Week oz/Week Comments No 5-6 drinks per year Sex Assigned at Date Recorded Not on file Last Filed Vital Signs Not on file Plan of Treatment Not on file Results Not on fileafter 08/19/2017
--- OUTSIDE RECORDS SUMMARY | 2018-08-20 05:33 | XMS REPORT | Clinical Summary ---
Author Author [facility] Organization [facility] Address Unknown Phone Unavailable Care Team Providers Care Mold Sander Name Role Phone Asked, No Pcp PCP Unavailable Allergies Not on File Current Medications Not on file Active Problems Not on file Social History Tobacco Use Types Packs/Day Years Used Date Never Assessed Sex Assigned at Date Recorded Not on file Last Filed Vital Signs Not on file Plan of Treatment Health Maintenance Due Date Last Done Comments COLON CANCER SCREENING 2002 SHINGRIX VACCINE (#1) 2002 ZOSTER VACCINE 2012 PNEUMOCOCCAL 2017 POLYSACCHARIDE VACCINE AGE 65 AND OVER PNEUMOCOCCAL-13 2017 INFLUENZA VACCINE 05/27/2018 Results Not on fileafter 08/19/2017 Insurance Payer Benefit Subscriber ID Type Phone Address Plan / Group AARP AARP xxxxxxxxxxx Commercial SUPPLEMENT MEDICARE MEDICARE xxxxxxxxxx Medicare [place], [place] PART A AND B Home: [address] [place] [id number]
--- OUTSIDE RECORDS SUMMARY | 2018-08-20 05:34 | XMS REPORT | Continuity of Care Document ---
Author Author [facility] Interface Address Unknown Phone Unavailable Problems Problem Status Onset Date Classification Date Reported Comments Source Sepsis, unspecified organism 11/21/2017 02/21/2018 [facility] INFECTION ON LEFT FOOT Active 11/04/2017 [facility] DIABETIC ULCER OF LEFT FOOT Active 11/04/2017 [facility] TOE PAIN Active 05/21/2015 [facility] OSTEOMYELITIS Active 05/21/2015 [facility] OVERDOSE Active 09/03/2013 [facility] Diabetes mellitus Resolved Problem 02/21/2018 [facility] Low back pain 02/21/2018 [facility] Non-pressure chronic ulcer of other part of left foot with unspecified severity 02/21/2018 [facility] Hyperlipidemia, unspecified 02/21/2018 [facility] Chronic pain syndrome 02/21/2018 [facility] Other specified bacterial agents as the cause of diseases classified elsewhere 02/21/2018 [facility] Type 2 diabetes mellitus with diabetic chronic kidney disease 02/21/2018 [facility] Acute kidney failure with tubular necrosis 02/21/2018 [facility] Atherosclerosis of [place] arteries of extremities with gangrene, left leg 02/21/2018 [facility] Osteomyelitis, unspecified 02/21/2018 [facility] Cutaneous abscess of left foot 02/21/2018 [facility] Encounter for immunization 02/21/2018 [facility] Do not resuscitate 02/21/2018 [facility] Type 2 diabetes mellitus with diabetic polyneuropathy 02/21/2018 [facility] Type 2 diabetes mellitus with foot ulcer 02/21/2018 [facility] Type 2 diabetes mellitus with other specified complication 02/21/2018 [facility] Type 2 diabetes mellitus with hyperglycemia 02/21/2018 [facility] Essential hypertension 02/21/2018 [facility] History of penile implant Resolved Problem 02/21/2018 [facility] H/O foot surgery<sup>1</sup> Resolved Problem 02/21/2018 Left foot. third metatarsal bone removal. Toe is stil present [facility] History of hip surgery<sup>2</sup> Resolved Problem 02/21/2018 right hip [facility] HTN (<span [id number]">Confirmed</span>) Resolved Problem 02/21/2018 [facility] Toe infection Resolved Problem 02/21/2018 [facility] AC OSTEOMYELITIS-UNSPEC Active [facility] TYPE 2 DIABETES MELLITUS WITH FOOT ULCER Active [facility] Medications Medication Details Route Status Patient Instructions Ordering Provider Order Date Source Glipizide 5 mg, 1 tab, Route: PO, Drug form: TAB, BID, Dosing Weight 92.358, kg, Start date: 11/13/17 17:00:00 [employer], Duration: 30 day, Stop date: 12/13/17 9:00:00 CSTNotes: (Same as: Glucotrol) 30 min before meals. No Longer Active 11/13/2017 [facility] Insulin Lispro 9 unit, 0.09 mL, Route: SUB-Q, Drug form: SOLN, TID-Before Meals, Dosing Weight 92.358, kg, PRN Blood Glucose Results, Start date: 11/13/17 14:17:00 [employer], Duration: 30 day, Stop date: 12/13/17 14:16:0 0 CSTNotes: Roll in palms of hands gently; Do not shake `vigorously. (Same as: Humalog ) "Single Patient Use Only " WASTE: F/P - Black; E - Municipal Trash Bin Stable for 28 days at room temperature. Expires in days from Date No Longer Active 11/13/2017 [facility] Glucagon 1 mg, Route: IM, Drug form: PDR/INJ, PRN, Dosing Weight 92.358, kg, PRN Blood Glucose Results, Start date: 11/13/17 14:17:00 [employer], Duration: 30 day, Stop date: 12/13/17 14:16:00 [employer] No Longer Active 11/13/2017 [facility] Dextrose 50% Syringe 25 gm, 50 mL, Route: IVP, Drug Form: INJ, Dosing Weight 92.358, kg, PRN, PRN Blood Glucose Results, Start date: 11/13/17 14:17:00 [employer], Duration: 30 day, Stop date: 12/13/17 14:16:00 [employer] No Longer Active 11/13/2017 [facility] Plavix 75 mg, 1 tab, Route: PO, Drug form: TAB, Daily, Dosing Weight 92.358, kg, Start date: 11/13/17 9:00:00 [employer], Duration: 30 day, Stop date: 12/12/17 9:00:00 CSTNotes: (Same As: Plavix) No Longer Active 11/13/2017 [facility] Santyl 1 appl, Route: TOP, Daily, Drug form: OINT, Start date: 11/13/17 9:00:00 [employer], Duration: 30 day, Stop date: 12/12/17 9:00:00 CSTNotes: (Same As: Santyl) No Longer Active 11/13/2017 [facility] Lovenox 40 mg, Route: SUB-Q, Drug form: INJ, Q24H, Dosing Weight 92.358, kg, Priority: Within 8 hours, Start date: 11/12/17 15:00:00 [employer], Duration: 30 day, Stop date: 12/11/17 15:00:00 [employer] Inactive 11/12/2017 [facility] normal saline 0.9% IV 1,000 mL 1,000 mL, Rate: 100 ml/hr, Infuse over: 10 hr, Route: IV, Dosing Weight 92.358 kg, Total Volume: 1,000, Start date: 11/12/17 14:47:00 [employer], Duration: 30 day, Stop date: 12/12/17 14:46:00 [employer], 2.17, m2 No Longer Active 11/12/2017 [facility] cefTRIAXone (ANES) Route: IV, Drug form: INJ, ONCE, Stop date: 11/12/17 14:27:00 [employer] Inactive 11/12/2017 [facility] heparin (ANES) Route: IV, Drug form: INJ, ONCE, Stop date: 11/12/17 14:26:00 [employer] Inactive 11/12/2017 [facility] fentaNYL (ANES) Route: IV, Drug form: INJ, ONCE, Stop date: 11/12/17 14:11:00 [employer] Inactive 11/12/2017 [facility] ceFAZolin (ANES) Route: IV, Drug form: INJ, ONCE, Stop date: 11/12/17 14:11:00 [employer] Inactive 11/12/2017 [facility] midazolam (ANES) Route: IV, Drug form: SOLN, ONCE, Stop date: 11/12/17 14:11:00 [employer] Inactive 11/12/2017 [facility] Sodium Chloride 0.9% IV 1000 mL 1,000 mL, Rate: 25 ml/hr, Infuse over: 40 hr, Route: IV, Dosing Weight 92.358 kg, Total Volume: 1,000, Start date: 11/12/17 13:42:00 [employer], Duration: 30 day, Stop date: 12/12/17 13:41:00 [employer], 2.17, m2 Inactive 11/12/2017 [facility] Albuterol 0.833 MG/ML / Ipratropium [place] 0.167 MG/ML Inhalant Solution 3 mL, Route: NEB, Dosing Weight 92.358, kg, ONCE, STAT, Start date: 11/12/17 13:41:00 [employer], Stop date: 11/12/17 13:41:00 [employer] Inactive 11/12/2017 [facility] vancomycin (ANES) 1000 mg Route: IV, Drug form: INJ, Start date: 11/12/17 13:26:00 [employer], Stop date: 11/12/17 14:26:00 [employer] Inactive 11/12/2017 [facility] Sodium Chloride 0.9% IV (ANES) 1000 mL Route: IV, Total Volume: 1,000, Start date: 11/12/17 13:26:00 [employer], Stop date: 11/12/17 14:26:00 [employer] Inactive 11/12/2017 [facility] Insulin regular 4 unit, Route: IVP, ONCE, Dosing Weight 92.358, kg, Start date: 11/12/17 13:14:00 [employer], Stop date: 11/12/17 13:14:00 [employer] Inactive 11/12/2017 [facility] Morphine 2 mg, 1 mL, Route: IV, Drug form: INJ, Daily, Dosing Weight 92.358, kg, PRN Wound Care, Start date: 11/12/17 10:55:00 [employer], Stop date: 12/12/17 10:54:00 CSTNotes: (Same as:MORPhine Sulfate) No Longer Active 11/12/2017 [facility] Sodium Chloride 0.9% IV 1,000 mL 1,000 mL, Rate: 60 ml/hr, Infuse over: 16.7 hr, Route: IV, Dosing Weight 92.358 kg, Total Volume: 1,000, Start date: 11/12/17 2:00:00 [employer], Stop date: 11/12/17 14:00:00 [employer], 2.17, m2 Inactive 11/12/2017 [facility] Insulin Glargine 100 UNT/ML Injectable Solution 5 unit, 0.05 mL, Route: SUB-Q, Drug form: SOLN, ONCE, Dosing Weight 92.358, kg, Start date: 11/11/17 22:33:00 [employer], Stop date: 11/11/17 22:33:00 CSTNotes: (Same as: [place]) Do not hold insulin without contacting prescriber WASTE: F/P - Black; E - Municipal Trash Bin "single patient use only" Inactive 11/12/2017 [facility] Acetylcysteine 200 MG/ML Inhalant Solution 600 mg, 6 mL, Route: PO, Drug form: SOLN, BID, Dosing Weight 92.358, kg, Start date: 11/11/17 17:00:00 [employer], Stop date: 11/13/17 9:00:00 CSTNotes: WASTE: F/P - Black; E - Municipal Trash Bin No Longer Active 11/11/2017 [facility] Ancef + sterile water 20 mL 2 gm, Route: IVP, PRE OP, Dosing Weight 92.358, kg, Start date: 11/11/17 11:00:00 [employer], Duration: 30 day, Stop date: 12/11/17 10:59:00 [employer], ABX Indication: Surgical ProphylaxisNotes: (Same As: AncSami [email or web address]) MEDICATION WASTE Product Size: 1000 mg Product Wasted: ___ mg No Longer Active 11/11/2017 [facility] normal saline 0.9% IV 1,000 mL 1,000 mL, Rate: 100 ml/hr, Infuse over: 10 hr, Route: IV, Dosing Weight 92.358 kg, Total Volume: 1,000, Start date: 11/11/17 10:05:00 [employer], Duration: 6 hr, Stop date: 11/11/17 16:04:00 [employer], 2.17, m2 Inactive 11/11/2017 [facility] Dilaudid 2 mg, 1 tab, Route: PO, Drug form: TAB, Q6H, Dosing Weight 92.358, kg, PRN Pain Score 7-10, Start date: 11/10/17 9:22:00 [employer], Duration: 30 day, Stop date: 12/10/17 9:21:00 CSTNotes: (Same as: Dilaudid) No Longer Active 11/10/2017 [facility] Rocephin 2 gm, Route: IVPB, [id number], Dosing Weight 92.358, kg, Start date: 11/09/17 14:00:00 [employer], Stop date: 11/22/17 17:00:00 [employer], ABX Indication: Bone/Joint InfectionNotes: (Same As: Rocephin). Use with 100 mL NS and infuse over 30 min MEDICATION WASTE Product Size: 2000 mg Product Wasted: ___ mg No Longer Active 11/09/2017 [facility] Dilaudid 0.5 mg, 0.5 mL, Route: IVP, Drug form: INJ, Q4H, Dosing Weight 92.358, kg, PRN Pain Score 7-10, Start date: 11/07/17 9:01:00 [employer], Duration: 30 day, Stop date: 12/07/17 9:00:00 CSTNotes: Same as: Dilaudid No Longer Active 11/07/2017 [facility] phenylephrine (ANES) Route: IV, Drug form: INJ, ONCE, Stop date: 11/07/17 8:46:00 [employer] Inactive 11/07/2017 [facility] esmolol (ANES) Route: IV, Drug form: INJ, ONCE, Stop date: 11/07/17 8:46:00 [employer] Inactive 11/07/2017 [facility] ePHEDrine (ANES) Route: IV, Drug form: INJ, ONCE, Stop date: 11/07/17 8:46:00 [employer] Inactive 11/07/2017 [facility] ondansetron (ANES) Route: IV, Drug form: INJ, ONCE, Stop date: 11/07/17 8:46:00 [employer] Inactive 11/07/2017 [facility] Promethazine 6.25 mg, Route: IVPB, ONCE, Dosing Weight 92.358, kg, PRN Nausea & Vomiting, Start date: 11/07/17 8:35:00 [employer] Inactive 11/07/2017 [facility] Ondansetron 4 mg, Route: IVP, ONCE, Dosing Weight 92.358, kg, PRN Nausea & Vomiting, Start date: 11/07/17 8:35:00 [employer] Inactive 11/07/2017 [facility] Meperidine 12.5 mg, Route: IVP, Q30Min, Dosing Weight 92.358, kg, PRN Other -See Comment, For shivering, Start date: 11/07/17 8:35:00 [employer], Duration: 2 doses or times, Stop date: Limited # of times Inactive 11/07/2017 [facility] Fentanyl 25 microgram, Route: IVP, Q5Min, Dosing Weight 92.358, kg, PRN Pain Score 4-6, Priority: Routine, Start date: 11/07/17 8:35:00 [employer], Duration: 4 doses or times, Stop date: Limited # of times Inactive 11/07/2017 [facility] Hydromorphone 0.5 mg, Route: IVP, Q5Min, Dosing Weight 92.358, kg, PRN Pain Score 7-10, Start date: 11/07/17 8:35:00 [employer], Duration: 4 doses or times, Stop date: Limited # of times Inactive 11/07/2017 [facility] Naloxone 0.4 mg, Route: IVP, Q2MIN, Dosing Weight 92.358, kg, PRN Narcotic Reversal, Start date: 11/07/17 8:35:00 [employer], Duration: 8 doses or times, Stop date: Limited # of times Inactive 11/07/2017 [facility] Flumazenil 0.2 mg, Route: IVP, PRN, Dosing Weight 92.358, kg, PRN Benzodiazepine Reversal, Initial dose, Start date: 11/07/17 8:35:00 [employer], Duration: 30 day, Stop date: 12/07/17 8:34:00 [employer] Inactive 11/07/2017 [facility] fentaNYL (ANES) Route: IV, Drug form: INJ, ONCE, Stop date: 11/07/17 8:25:00 [employer] Inactive 11/07/2017 [facility] lidocaine (ANES) Route: IV, Drug form: INJ, ONCE, Stop date: 11/07/17 8:25:00 [employer] Inactive 11/07/2017 [facility] propofol (ANES) Route: IV, Drug form: INJ, ONCE, Stop date: 11/07/17 8:25:00 [employer] Inactive 11/07/2017 [facility] midazolam (ANES) Route: IV, Drug form: SOLN, ONCE, Stop date: 11/07/17 8:25:00 [employer] Inactive 11/07/2017 [facility] Lactated Ringers Injection IV (ANES) 1000 mL Route: IV, Total Volume: 1,000, Start date: 11/07/17 7:39:00 [employer], Stop date: 11/07/17 8:39:00 [employer] Inactive 11/07/2017 [facility] Calcium Chloride 0.0014 MEQ/ML / Potassium Chloride 0.004 MEQ/ML / Sodium Chloride 0.103 MEQ/ML / Sodium Lactate 0.028 MEQ/ML Injectable Solution 1,000 mL, Rate: 25 ml/hr, Infuse over: 40 hr, Route: IV, Dosing Weight 92.358 kg, Total Volume: 1,000, Start date: 11/07/17 7:35:00 [employer], Duration: 30 day, Stop date: 12/07/17 7:34:00 [employer], 2.17, m2 Inactive 11/07/2017 [facility] Morphine 2 mg, 1 mL, Route: IV, Drug form: SOLN, Q4H, Dosing Weight 92.358, kg, PRN Pain Score 6-10, Priority: NOW, Start date: 11/07/17 4:57:00 [employer], Duration: 30 day, Stop date: 12/07/17 4:56:00 [employer] Inactive 11/07/2017 [facility] RN please don't give VANCO dose RN please don't give VANCO dose, before TROUGH level is DRAWN, Drug form: MISC, Route: MISC, ONCE, 11/06/17 18:30:00 [employer], Stop date: 11/06/17 18:30:00 [employer] No Longer Active 11/07/2017 [facility] Atenolol 25 MG Oral Tablet 25 mg, 1 tab, Route: PO, Drug form: TAB, Bedtime, Dosing Weight 88.636, kg, Start date: 11/05/17 21:00:00 [employer], Duration: 30 day, Stop date: 12/04/17 21:00:00 CSTNotes: (Same As:Tenormin) Inactive 11/06/2017 [facility] Potassium gluconate 1,190 mg, Route: PO, Drug form: TAB, Bedtime, Dosing Weight 88.636, kg, Start date: 11/05/17 21:00:00 [employer], Duration: 30 day, Stop date: 12/04/17 21:00:00 [employer] No Longer Active 11/06/2017 [facility] Insulin Glargine 100 UNT/ML Injectable Solution [Lantus] 20 unit, 0.2 mL, Route: SUB-Q, Drug form: SOLN, Bedtime, Dosing Weight 88.636, kg, Start date: 11/05/17 21:00:00 [employer], Duration: 30 day, Stop date: 12/04/17 21:00:00 CSTNotes: (Same as: Lantus) Do not hold insulin without contacting prescriber WASTE: F/P - Black; E - Municipal Trash Bin "single patient use only" No Longer Active 11/06/2017 [facility] Magnesium Oxide 250 mg, 1 tab, Route: PO, Drug form: TAB, Bedtime, Dosing Weight 88.636, kg, Start date: 11/05/17 21:00:00 [employer], Duration: 30 day, Stop date: 12/04/17 21:00:00 [employer] No Longer Active 11/06/2017 [facility] enalapril 2.5 mg, 1 tab, Route: PO, Drug form: TAB, Bedtime, Dosing Weight 88.636, kg, Start date: 11/05/17 21:00:00 [employer], Duration: 30 day, Stop date: 12/04/17 21:00:00 CSTNotes: (Same as: Vasotec) No Longer Active 11/06/2017 [facility] Vancomycin 1,000 mg, Route: IVPB, [id number], Dosing Weight 88.636, kg, Start date: 11/05/17 16:00:00 [employer], Duration: 5 day, Stop date: 11/10/17 5:00:00 [employer], ABX Indication: Skin/Soft Tissue InfectionNotes: TIME CR ITICAL MEDICATION (Same As: Vancocin) Infusion rate 2001 mg: infuse over 2.5 hours For adult patients only: Round to nearest 250 mg per Medical Staff approval MEDICATION WASTE Product Size: 1000 mg Product Wasted: ___ mg No Longer Active 11/05/2017 [facility] Bystolic 10 mg, 1 tab, Route: PO, Drug form: TAB, Daily, Dosing Weight 92.358, kg, Start date: 11/05/17 12:00:00 [employer], Stop date: 12/05/17 21:00:00 CSTNotes: (same as: Bystolic) No Longer Active 11/05/2017 [facility] Zosyn 3.375 gm, Route: IVPB, [id number], Dosing Weight 88.636, kg, CrCl >=20 ml/min infuse over 4 hours, Start date: 11/05/17 12:00:00 [employer], Duration: 5 day, Stop date: 11/10/17 4:00:00 [employer], ABX Indication: Skin/Soft Tissue InfectionNotes: (Same as: Zosyn) Dosing based on Piperacillin component MEDICATION WASTE Product Size: 3375 mg Product Wasted: ___ mg No Longer Active 11/05/2017 [facility] Streptococcus pneumoniae serotype 1 capsular antigen diphtheria [id number] protein conjugate vaccine / Streptococcus pneumoniae serotype 14 capsular antigen diphtheria [id number] protein conjugate vaccine / Streptococcus pneumoniae serotype 18C capsular antigen d 0.5 mL, Route: IM, Drug Form: INJ, Daily, Start date: 11/05/17 12:00:00 [employer], Duration: 1 doses or times, Stop date: 11/05/17 12:00:00 CSTNotes: Shake well prior to use (Same as: Prevnar 13) Inactive 11/05/2017 [facility] influenza virus vaccine, inactivated 0.5 mL, Route: IM, Drug Form: SUSP, Daily, Start date: 11/05/17 12:00:00 [employer], Duration: 1 doses or times, Stop date: 11/05/17 12:00:00 CSTNotes: (Same as: Fluzone Quadrivalent, Fluarix Quadrivalent) For 3 years of age and older (0.5 mL IM) Shake well before use Inactive 11/05/2017 [facility] Dilaudid 2 mg, 1 tab, Route: PO, Drug form: TAB, Q4H, Dosing Weight 92.358, kg, PRN Pain Score 7-10, Start date: 11/05/17 11:23:00 [employer], Duration: 30 day, Stop date: 12/05/17 11:22:00 CSTNotes: (Same as: Dilaudid) No Longer Active 11/05/2017 [facility] Acetaminophen 325 MG / Hydrocodone Bitartrate 10 MG Oral Tablet [Arbuckle 10/325] 1 tab, Route: PO, Drug Form: TAB, Dosing Weight 92.358, kg, Q6H, PRN Pain Score 4-6, Start date: 11/05/17 11:23:00 [employer], Duration: 30 day, Stop date: 12/05/17 11:22:00 CSTNotes: Do not exceed 4gm/day of acetaminophen. (Same as: Arbuckle 325/10) No Longer Active 11/05/2017 [facility] Lovenox 40 mg, 0.4 mL, Route: SUB-Q, Drug form: INJ, [id number], Dosing Weight 92.358, kg, Start date: 11/05/17 11:00:00 [employer], Duration: 30 day, Stop date: 12/04/17 22:00:00 CSTNotes: (Same as: Lovenox) No Longer Active 11/05/2017 [facility] Hydrocodone Bitartrate 7.5 MG / Ibuprofen 200 MG Oral Tablet [Vicoprofen] 1 tab, Route: PO, Drug Form: TAB, Dosing Weight 92.358, kg, Q6H, PRN Pain Score 6-10, Start date: 11/05/17 10:52:00 [employer], Duration: 30 day, Stop date: 12/05/17 10:51:00 CSTNotes: (Same as: Vicoprofen) Inactive 11/05/2017 [facility] cyclobenzaprine 10 mg, 1 tab, Route: PO, Drug form: TAB, TID, Dosing Weight 92.358, kg, PRN as needed for muscle spasm, Start date: 11/05/17 10:52:00 [employer], Duration: 30 day, Stop date: 12/05/17 10:51:00 CSTNotes: (Same As: Flexeril) No Longer Active 11/05/2017 [facility] Vitamin B 12 5,000 microgram, Route: PO, Daily, Dosing Weight 88.636, kg, Start date: 11/05/17 9:00:00 [employer], Duration: 30 day, Stop date: 12/04/17 9:00:00 [employer] No Longer Active 11/05/2017 [facility] Vitamin D3 2000 intl units oral tablet 2,000 IntlUnit, 2 tab, Route: PO, Drug form: TAB, BID, Dosing Weight 88.636, kg, Start date: 11/05/17 9:00:00 [employer], Duration: 30 day, Stop date: 12/04/17 17:00:00 CSTNotes: Same as : Vitamin D3 No Longer Active 11/05/2017 [facility] Cetirizine 10 mg, 2 tab, Route: PO, Drug form: TAB, Bedtime, Dosing Weight 88.636, kg, Start date: 11/05/17 9:00:00 [employer], Stop date: 12/04/17 21:00:00 CSTNotes: (Same As: Zyrtec) No Longer Active 11/05/2017 [facility] calcium-vitamin D 185 mg-1000U 1 tab, Route: PO, Drug Form: TAB, Dosing Weight 88.636, kg, BID, Start date: 11/05/17 9:00:00 [employer], Duration: 30 day, Stop date: 12/04/17 17:00:00 [employer] No Longer Active 11/05/2017 [facility] heparin 5,000 unit, 1 mL, Route: SUB-Q, Drug form: INJ, Q12H, Dosing Weight 88.636, kg, Start date: 11/05/17 9:00:00 [employer], Stop date: 12/04/17 21:00:00 CSTNotes: porcine heparin Inactive 11/05/2017 [facility] Afrin Extra Moisturizing 1 spray, Route: NASAL, Drug Form: SPRY, Dosing Weight 88.636, kg, BID, Start date: 11/05/17 9:00:00 [employer], Duration: 30 day, Stop date: 12/04/17 17:00:00 CSTNotes: (Same as: Afrin) No Longer Active 11/05/2017 [facility] Vitamin B1 250 mg, 2.5 tab, Route: PO, Drug form: TAB, BID, Dosing Weight 88.636, kg, Start date: 11/05/17 9:00:00 [employer], Duration: 30 day, Stop date: 12/04/17 17:00:00 CSTNotes: (Same As: Vitamin B1) No Longer Active 11/05/2017 [facility] Docusate Sodium 100 MG Oral Capsule [Colace] 400 mg, 4 cap, Route: PO, Drug form: CAP, BID, Dosing Weight 88.636, kg, Start date: 11/05/17 9:00:00 [employer], Duration: 30 day, Stop date: 12/04/17 17:00:00 CSTNotes: (Same as: Colace) (Do Not Crush) No Longer Active 11/05/2017 [facility] nebivolol 10 MG Oral Tablet [Bystolic] 10 mg=1 tab, PO, Daily, # 30 tab, 0 Refill(s) Active 11/05/2017 [facility] doxycycline hyclate 100 MG Oral Capsule 100 mg=1 cap, PO, Q12H, # 28 cap, 0 Refill(s) No Longer Active 11/05/2017 [facility] cyclobenzaprine 10 mg oral tablet 10 mg=1 tab, PO, TID, PRN for spasms, # 30 tab, 0 Refill(s) Active 11/05/2017 [facility] atorvastatin 40 mg oral tablet 40 mg=1 tab, PO, Bedtime, # 90 tab, 0 Refill(s) Active 11/05/2017 [facility] Insulin Lispro 6 unit, 0.06 mL, Route: SUB-Q, Drug form: SOLN, TID-Before Meals, Dosing Weight 88.636, kg, PRN Blood Glucose Results, Start date: 11/05/17 8:14:00 [employer], Duration: 30 day, Stop date: 12/05/17 8:13:00 CSTNotes: Roll in palms of hands gently; Do not shake `vigorously. (Same as: Humalog ) "Single Patient Use Only " WASTE: F/P - Black; E - Municipal Trash Bin Stable for 28 days at room temperature. Expires in days from Date No Longer Active 11/05/2017 [facility] Dextrose 50% Syringe 25 gm, 50 mL, Route: IVP, Drug Form: INJ, Dosing Weight 88.636, kg, PRN, PRN Blood Glucose Results, Start date: 11/05/17 8:14:00 [employer], Duration: 30 day, Stop date: 12/05/17 8:13:00 [employer] No Longer Active 11/05/2017 [facility] Glucagon 1 mg, Route: IM, Drug form: PDR/INJ, PRN, Dosing Weight 88.636, kg, PRN Blood Glucose Results, Start date: 11/05/17 8:14:00 [employer], Duration: 30 day, Stop date: 12/05/17 8:13:00 [employer] No Longer Active 11/05/2017 [facility] Acetaminophen 325 mg, 1 tab, Route: PO, Drug form: TAB, Q4H, Dosing Weight 88.636, kg, PRN Pain Score 4-6, Start date: 11/05/17 3:31:00 [employer], Duration: 30 day, Stop date: 12/05/17 3:30:00 CSTNotes: Do not exceed 4 gm/day. (Same as: Tylenol) No Longer Active 11/05/2017 [facility] Tylenol 650 mg, Route: PO, Drug form: TAB, ONCE, Dosing Weight 88.636, kg, Priority: STAT, Start date: 11/05/17 2:16:00 [employer], Stop date: 11/05/17 2:16:00 [employer] Inactive 11/05/2017 [facility] Motrin 600 mg, Route: PO, Drug form: TAB, ONCE, Dosing Weight 88.636, kg, Priority: STAT, Start date: 11/05/17 2:16:00 [employer], Stop date: 11/05/17 2:16:00 [employer] Inactive 11/05/2017 [facility] Sodium Chloride 0.9% IV 1,000 mL 1,000 mL, Rate: 75 ml/hr, Infuse over: 13.3 hr, Route: IV, Dosing Weight 88.636 kg, Total Volume: 1,000, Priority: STAT, Start date: 11/05/17 2:00:00 [employer], Duration: 1 doses or times, Stop date: 11/05/17 15:17:00 [employer], 2.12, m2 Inactive 11/05/2017 [facility] Zosyn 3.375 gm, Route: IVPB, ONCE, Dosing Weight 88.636, kg, Priority: STAT, Start date: 11/05/17 2:00:00 [employer], Stop date: 11/05/17 2:00:00 [employer], ABX Indication: Skin/Soft Tissue Infection Inactive 11/05/2017 [facility] Vancomycin 1,000 mg, Route: IVPB, ONCE, Dosing Weight 88.636, kg, Priority: STAT, Start date: 11/05/17 2:00:00 [employer], Stop date: 11/05/17 2:00:00 [employer], ABX Indication: Skin/Soft Tissue InfectionNotes: TIME CRITICAL M EDICATION (Same As: Vancocin) Infusion rate 2001 mg: infuse over 2.5 hours For adult patients only: Round to nearest 250 mg per Medical Staff approval MEDICATION WASTE Product Size: 1000 mg Product Wasted: ___ mg Inactive 11/05/2017 [facility] Sodium Chloride 0.9% (Bolus) IV 1,000 mL, 1000 ml/hr, Infuse Over: 1 hr, Route: IV, 1,000, Drug form: INJ, ONCE, Priority: STAT, Dosing Weight 88.636 kg, Start date: 11/05/17 2:00:00 [employer], Stop date: 11/05/17 2:00:00 [employer] Inactive 11/05/2017 [facility] Acetaminophen 300 MG / Codeine Phosphate 30 MG Oral Tablet [Tylenol with Codeine #3] 1 tab, PO, Q6H, PRN Pain Score 1-3, # 24 tab, 0 Refill(s) No Longer Active 05/31/2015 [facility] Gentamicin Sulfate (NURSING HOME) 1 MG/ML Topical Cream 1 appl, TOP, Daily, # 15 gm, 0 Refill(s) No Longer Active 05/31/2015 [facility] Acetaminophen 300 MG / Codeine Phosphate 30 MG Oral Tablet [Tylenol with Codeine #3] 1 tab, Route: PO, Drug Form: TAB, Dosing Weight 94.205, kg, Q6H, PRN Pain Score 1-3, Start date: 05/31/15 16:10:00, Duration: 30 day, Stop date: 06/30/15 16:09:00Notes: Do not exceed 4gm/day of acetaminophen. (Same as: Tylenol with Codeine # 3) Inactive 05/31/2015 [facility] Gentamicin Sulfate (NURSING HOME) 1 MG/ML Topical Cream 1 appl, Route: TOP, Daily, Drug form: CRM, Start date: 05/31/15 9:00:00, Duration: 30 day, Stop date: 06/29/15 9:00:00Notes: (Same as: Garamycin) Inactive 05/31/2015 [facility] Ancef 2 gm, 100 mL, Route: IVPB, Drug form: INJ, ONCE, Dosing Weight 94.205, kg, Start date: 05/29/15 14:11:00, Duration: 1 doses or times, Stop date: 05/29/15 14:11:00Notes: Same as: Ancef Inactive 05/29/2015 [facility] LR IV 1,000 mL 1,000 mL, Rate: 25 ml/hr, Infuse over: 40 hr, Route: IV, Dosing Weight 94.205 kg, Total Volume: 1,000, Start date: 05/29/15 14:11:00, Duration: 30 day, Stop date: 06/28/15 14:10:00 No Longer Active 05/29/2015 [facility] D5W 1,000 mL 1,000 mL, Rate: 75 ml/hr, Infuse over: 13.3 hr, Route: IV, Dosing Weight 94.205 kg, Total Volume: 1,000, Start date: 05/28/15 19:47:00, Duration: 30 day, Stop date: 06/27/15 19:46:00 No Longer Active 05/29/2015 [facility] Hydrocodone Bitartrate 7.5 MG / Ibuprofen 200 MG Oral Tablet [Vicoprofen] 1 tab, Route: PO, Drug Form: TAB, Dosing Weight 94.205, kg, Q6H, PRN Pain Score 4-6, Start date: 05/28/15 15:47:00, Duration: 30 day, Stop date: 06/27/15 15:46:00Notes: (Same as: Vicoprofen) No Longer Active 05/28/2015 [facility] Glucotrol 5 mg, 1 tab, Route: PO, Drug form: TAB, Daily, Start date: 05/27/15 9:00:00, Duration: 30 day, Stop date: 06/25/15 9:00:00Notes: (Same as: Glucotrol) 30 min before meals. No Longer Active 05/27/2015 [facility] cefepime 1 gm, Route: IVPB, Q8H-05, Dosing Weight 94.205, kg, (CrCl >/=50 ml/min), Start date: 05/26/15 13:00:00, Duration: 30 day, Stop date: 06/25/15 5:00:00Notes: (Same As: Maxipime) MEDICATION WASTE Product Size: 1000 mg Product Wasted: ___ mg No Longer Active 05/26/2015 [facility] enalapril 2.5 mg, 1 tab, Route: PO, Drug form: TAB, Bedtime, Dosing Weight 94.205, kg, Start date: 05/25/15 21:00:00, Duration: 30 day, Stop date: 06/23/15 21:00:00Notes: (Same as: Vasotec) No Longer Active 05/26/2015 [facility] Atenolol 25 MG Oral Tablet 25 mg, 1 tab, Route: PO, Drug form: TAB, Bedtime, Dosing Weight 94.205, kg, Start date: 05/25/15 21:00:00, Duration: 30 day, Stop date: 06/23/15 21:00:00Notes: (Same As:Tenormin) No Longer Active 05/26/2015 [facility] Docusate Sodium 100 MG Oral Capsule [Colace] 400 mg, 4 cap, Route: PO, Drug form: CAP, BID, Dosing Weight 94.205, kg, Start date: 05/25/15 18:03:00, Duration: 30 day, Stop date: 06/24/15 17:00:00Notes: (Same as: Colace) (Do Not Crush) No Longer Active 05/25/2015 [facility] Glucophage 1,000 mg, 2 tab, Route: PO, Drug form: TAB, BID-Meals, Start date: 05/25/15 17:00:00, Duration: 30 day, Stop date: 06/24/15 8:00:00Notes: (Same as: Glucophage) Take with meal No Longer Active 05/25/2015 [facility] Glipizide 5 MG / Metformin hydrochloride 500 MG Oral Tablet 2 tab, Route: PO, Drug Form: TAB, Dosing Weight 94.205, kg, BID, Start date: 05/25/15 17:00:00, Duration: 30 day, Stop date: 06/24/15 9:00:00 Inactive 05/25/2015 [facility] cyclobenzaprine 5 mg, 0.5 tab, Route: PO, Drug form: TAB, BID, Dosing Weight 94.205, kg, Start date: 05/25/15 17:00:00, Duration: 30 day, Stop date: 06/24/15 9:00:00Notes: (Same As: Flexeril) No Longer Active 05/25/2015 [facility] Glucotrol 10 mg, 2 tab, Route: PO, Drug form: TAB, BID- Before Meals, Start date: 05/25/15 16:30:00, Duration: 30 day, Stop date: 06/24/15 7:30:00 No Longer Active 05/25/2015 [facility] cadexomer iodine 0.009 MG/MG Topical Gel [Iodosorb] 1 appl, Route: TOP, Daily, Drug form: GEL, Start date: 05/25/15 9:00:00, Duration: 30 day, Stop date: 06/23/15 9:00:00 No Longer Active 05/25/2015 [facility] Please order Iodosorb from [facility] not from pharmacy Please order Iodosorb from [facility] not from pharmacy, Attn Notice, Drug form: MISC, Route: MISC, Daily, 05/25/15 9:00:00, Duration: 30 day, Stop date: 06/23/15 9:00:00 No Longer Active 05/25/2015 [facility] Vancomycin 1.25 gm, 250 mL, Route: IVPB, Drug form: INJ, [id number], Dosing Weight 92.273, kg, Start date: 05/25/15 4:00:00, Duration: 30 day, Stop date: 06/23/15 16:00:00Notes: TIME CRITICAL MEDICATION Same as: Vanc ocin-NS (premixed) Infusion rate 2001 mg: infuse over 2.5 hours No Longer Active 05/25/2015 [facility] Cipro 400 mg, 200 mL, Route: IVPB, Drug form: INJ, [id number], Dosing Weight 92.273, kg, Start date: 05/25/15 3:00:00, Duration: 30 day, Stop date: 06/23/15 15:00:00Notes: Do not refrigerate No Longer Active 05/25/2015 [facility] Levemir 5 unit, 0.05 mL, Route: SUB-Q, Drug form: INJ, Bedtime, Dosing Weight 92.273, kg, Start date: 05/24/15 21:00:00, Stop date: 06/22/15 21:00:00Notes: Same as Levemir Do not hold insulin without contacting prescriber "single patient use only" No Longer Active 05/25/2015 [facility] non-formulary 1,200 mg=, PO, BID, Tart Ugaled Extract for inflammation, Refill(s) 0Special Instructions: Tart Ugalde Extract for inflammation Active 05/25/2015 [facility] Vitamin D3 2000 intl units oral capsule 2,000 IntlUnit=1 cap, PO, BID, # 100 cap, 3 Refill(s) Active 05/25/2015 [facility] Vitamin B1 250 mg, PO, BID, 0 Refill(s) Active 05/25/2015 [facility] Afrin Extra Moisturizing 1 spray, NASAL, BID, 0 Refill(s) Active 05/25/2015 [facility] Flax Oil oral capsule 1,200 mg=, PO, BID, 0 Refill(s) Active 05/25/2015 [facility] Super B Complex oral tablet 2 tab, PO, Daily, # 30 tab, 0 Refill(s) Active 05/25/2015 [facility] potassium gluconate 595 mg oral tablet 1,190 mg=2 tab, PO, Bedtime, # 100 tab, 0 Refill(s) Active 05/25/2015 [facility] calcium-vitamin D 185 mg-1000U 1 tab, PO, BID, # 100 tab, 0 Refill(s) Active 05/25/2015 [facility] magnesium oxide 250 mg oral tablet 250 mg=1 tab, PO, Bedtime, 0 Refill(s) Active 05/25/2015 [facility] Non-Formulary Home Medication 2 cap, PO, BID, Refill(s) 0 Active 05/25/2015 [facility] Glipizide 5 MG / Metformin hydrochloride 500 MG Oral Tablet 2 tab, PO, BID, 0 Refill(s) Active 05/25/2015 [facility] Docusate Sodium 100 MG Oral Capsule [Colace] 400 mg=4 cap, PO, BID, 0 Refill(s) Active 05/25/2015 [facility] enalapril 2.5 mg, PO, Bedtime, 0 Refill(s) Active 05/25/2015 [facility] Atenolol 25 MG Oral Tablet 25 mg=1 tab, PO, Bedtime, 0 Refill(s) Active 05/25/2015 [facility] cetirizine 10 mg oral capsule 10 mg=1 cap, PO, Daily, 0 Refill(s) Active 05/25/2015 [facility] Ginkgo Biloba 500 mg, PO, BID, 0 Refill(s) Active 05/25/2015 [facility] Tart Ugalde Tart Ugalde, Refill(s) 0 Inactive 05/25/2015 [facility] cinnamon cinnamon, 2,000 mg=, PO, BID, Refill(s) 0 Active 05/25/2015 [facility] Lantus 20 unit, SUB-Q, Bedtime, 0 Refill(s) Active 05/25/2015 [facility] Clindamycin 900 mg, 6 mL, Route: IVPB, [id number], Dosing Weight 92.273, kg, Start date: 05/24/15 17:00:00, Duration: 30 day, Stop date: 06/23/15 9:00:00Notes: (Same As: Cleocin) No Longer Active 05/24/2015 [facility] Enoxaparin 40 mg, 0.4 mL, Route: SUB-Q, Drug form: INJ, [id number], Dosing Weight 92.273, kg, Start date: 05/24/15 16:00:00, Duration: 30 day, Stop date: 06/22/15 16:00:00Notes: (Same as: Lovenox) No Longer Active 05/24/2015 [facility] NS 1,000 mL 1,000 mL, Rate: 100 ml/hr, Infuse over: 10 hr, Route: IV, Dosing Weight 92.273 kg, Total Volume: 1,000, Start date: 05/24/15 15:29:00, Duration: 1 day, Stop date: 05/25/15 15:28:00 No Longer Active 05/24/2015 [facility] Liquid Vitamin D-3 See Instructions, patient takes gel caps, 0 Refill(s)Special Instructions: patient takes gel caps Inactive 05/24/2015 [facility] Gingko Biloba BID, 0 Refill(s) Inactive 05/24/2015 [facility] Flax Oil BID, 2 pills in AM and 2 pills in PM, 0 Refill(s)Special Instructions: 2 pills in AM and 2 pills in PM Inactive 05/24/2015 [facility] Hydrocodone Bitartrate 7.5 MG / Ibuprofen 200 MG Oral Tablet [Vicoprofen] 1 tab, PO, Q6H, 0 Refill(s) Active 05/24/2015 [facility] Super B Complex oral tablet 2 tab, PO, Daily, 0 Refill(s) Inactive 05/24/2015 [facility] milk thistle oral capsule 1,000 mg=, BID, 0 Refill(s) Active 05/24/2015 [facility] enalapril See Instructions, 0 Refill(s) Inactive 05/24/2015 [facility] Thiamine See Instructions, BID, 0 Refill(s)Special Instructions: BID Inactive 05/24/2015 [facility] Calcium Gluconate See Instructions, 2 tabs at Night, 0 Refill(s)Special Instructions: 2 tabs at Night Inactive 05/24/2015 [facility] B-12 5,000 microgram, PO, Daily, 0 Refill(s) Active 05/24/2015 [facility] Atenolol See Instructions, PO Daily, 0 Refill(s)Special Instructions: PO Daily Inactive 05/24/2015 [facility] Zyrtec See Instructions, Daily, 0 Refill(s)Special Instructions: Daily Inactive 05/24/2015 [facility] Glipizide 5 MG / Metformin hydrochloride 500 MG Oral Tablet 2 tab, PO, BID-Meals, # 60 tab, 0 Refill(s) Inactive 05/24/2015 [facility] cyclobenzaprine 5 mg oral tablet 5 mg=1 tab, PO, BID, 0 Refill(s) Active 05/24/2015 [facility] Insulin, Aspart, Human 4 unit, 0.04 mL, Route: SUB-Q, Drug form: SOLN, Bedtime, Dosing Weight 92.273, kg, PRN Blood Glucose Results, Start date: 05/24/15 15:00:00, Duration: 30 day, Stop date: 06/23/15 14:59:00Notes: Roll in palms of hands gently; Do not shake vigorously. (Same as: NovoLOG) "single patient use only" Stable for 28 days at room temperature. Expires in days from Date No Longer Active 05/24/2015 [facility] Glucagon 1 mg, Route: IM, Drug form: PDR/INJ, PRN, Dosing Weight 92.273, kg, PRN Blood Glucose Results, Start date: 05/24/15 15:00:00, Duration: 30 day, Stop date: 06/23/15 14:59:00 No Longer Active 05/24/2015 [facility] Dextrose 50% Syringe 25 gm, 50 mL, Route: IVP, Drug Form: INJ, Dosing Weight 92.273, kg, PRN, PRN Blood Glucose Results, Start date: 05/24/15 15:00:00, Duration: 30 day, Stop date: 06/23/15 14:59:00 No Longer Active 05/24/2015 [facility] Insulin, Aspart, Human 5 unit, 0.05 mL, Route: SUB-Q, Drug form: SOLN, Sliding Scale, Dosing Weight 92.273, kg, PRN Blood Glucose Results, Start date: 05/24/15 14:50:00, Duration: 30 day, Stop date: 06/23/15 14:49:00Notes: Roll in palms of hands gently; Do not shake vigorously. (Same as: NovoLOG) "single patient use only" Stable for 28 days at room temperature. Expires in days from Date Inactive 05/24/2015 [facility] Glucagon 1 mg, Route: IM, Drug form: PDR/INJ, PRN, Dosing Weight 92.273, kg, PRN Blood Glucose Results, Priority: STAT, Start date: 05/24/15 14:50:00, Duration: 30 day, Stop date: 06/23/15 14:49:00 Inactive 05/24/2015 [facility] Dextrose 50% Syringe 25 gm, 50 mL, Route: IVP, Drug Form: INJ, Dosing Weight 92.273, kg, PRN, PRN Blood Glucose Results, Start date: 05/24/15 14:50:00, Duration: 30 day, Stop date: 06/23/15 14:49:00 Inactive 05/24/2015 [facility] Vancomycin 2 gm, Route: IVPB, Drug form: INJ, Q12H, Dosing Weight 92.273, kg, Priority: STAT, Start date: 05/24/15 14:48:00, Duration: 30 day, Stop date: 06/23/15 9:00:00 Inactive 05/24/2015 [facility] Cipro 400 mg, 200 mL, Route: IVPB, Drug form: INJ, Q12H- 10, Dosing Weight 92.273, kg, Priority: STAT, Start date: 05/24/15 14:48:00, Duration: 30 day, Stop date: 06/23/15 10:00:00Notes: Do not refrigerate Inactive 05/24/2015 [facility] Morphine 4 mg, 2 mL, Route: IVP, Drug form: INJ, Q4H, Dosing Weight 92.273, kg, PRN Pain Score 7-10, Start date: 05/24/15 14:48:00, Duration: 30 day, Stop date: 06/23/15 14:47:00Notes: (Same as:MORPhine Sulfate) No Longer Active 05/24/2015 [facility] Ondansetron 4 mg, 2 mL, Route: IVP, Drug form: INJ, Q6H, Dosing Weight 92.273, kg, PRN Nausea & Vomiting, Start date: 05/24/15 14:48:00, Duration: 30 day, Stop date: 06/23/15 14:47:00Notes: (Same as: Zofran) MEDICATION WASTE Product Size: 4 mg Product Wasted: ___ mg No Longer Active 05/24/2015 [facility] Cipro 400 mg, Route: IVPB, ONCE, Dosing Weight 92.273, kg, Priority: STAT, Start date: 05/24/15 11:13:00, Stop date: 05/24/15 11:13:00 Inactive 05/24/2015 [facility] Vancomycin 2 gm, 500 mL, Route: IVPB, Drug form: SOLN, ONCE, Dosing Weight 92.273, kg, Priority: STAT, Start date: 05/24/15 11:13:00, Stop date: 05/24/15 11:13:00Notes: TIME CRITICAL MEDICATION Same as: Vancocin Infusion rate 2001 mg: infuse over 2.5 hours Inactive 05/24/2015 [facility] Allergies, Adverse Reactions, Alerts Substance Category Reaction Severity Reaction type Status Date Reported Comments Source codeine Assertion Drug allergy Active [facility] OxyCONTIN Assertion Moderate Drug allergy Active [facility] Immunizations Immunization Date Given Site Status Last Updated Comments Source pneumococcal 13-valent vaccine<sup>1</sup> 11/10/2017 Not Given [facility] influenza virus vaccine, inactivated 11/08/2017 [facility]id [facility] Results Order Name Results Value Reference Range Date Interpretation Comments Source Chest 1view DX Chest 1view DX Chest 1view DX CLINICAL HISTORY: - STAT portable Chest X-ray post successful insertion. Indication: Correct Line Placement. COMPARISON: 11/11/2017 FINDINGS: Limited AP portable study. Support Devices: Right upper extremity PICC line terminates near SVC right atrial junction. . Lungs: Right costophrenic sulcus has been cut off on the submitted exam. Lungs and pleural spaces are clear. Cardiomediastinum: Stable cardiomediastinum. Bone and Soft Tissues: No acute bony abnormality is noted. Multiple EKG leads and other wires project over the patient's chest. IMPRESSION: Right upper extremity PICC line terminates near SVC right atrial junction. SL: ALTAGRACIA 11/14/2017 - - Read by: Coy Beaulieu MD Dictated Date/time: 11/14/17 15:50 Electronically Signed by: Coy Beaulieu MD 11/14/17 15:51 FINAL REPORT [facility] ELECTROLYTES AGAP 12.7 meq/L 10.0 - 20.0 11/14/2017 [facility] ELECTROLYTES eGFR 86 mL/min/1.73m2 11/14/2017 Result Comment: The eGFR is calculated using the CKD-EPI formula. In most young, healthy individuals the eGFR will be >90 mL/min/1.73m2. The eGFR declines with age. An eGFR of 60-89 may be normal in some populations, particularly the elderly, for whom the CKD-EPI formula has not been extensively validated. Use of the eGFR is not recommended in the following populations: Individuals with unstable creatinine concentrations, including patients and those with serious co-morbid conditions. Patients with extremes in muscle mass or diet. The data above are obtained from the National Kidney Disease Education Program (NKDEP) which additionally recommends that when the eGFR is used in patients with extremes of body mass index for purposes of drug dosing, the eGFR should be multiplied by the estimated BMI. [facility] ELECTROLYTES BUN 12 mg/dL 7 - 22 11/14/2017 [facility] ELECTROLYTES Glucose Lvl 118 mg/dL 70 - 99 11/14/2017 [facility] ELECTROLYTES Chloride Lvl 106 meq/L 95 - 109 11/14/2017 [facility] ELECTROLYTES Creatinine Lvl 0.93 mg/dL 0.50 - 1.40 11/14/2017 [facility] ELECTROLYTES Sodium Lvl 141 meq/L 135 - 145 11/14/2017 [facility] ELECTROLYTES Potassium Lvl 4.7 meq/L 3.5 - 5.1 11/14/2017 [facility] ELECTROLYTES CO2 27 meq/L 24 - 32 11/14/2017 [facility] ELECTROLYTES Calcium Lvl 8.2 mg/dL 8.5 - 10.5 11/14/[address] [facility] Lymphocytes 15.6 % 20.0 - 40.0 11/14/2017 [facility] HEMATOLOGY Monocytes 9.5 % 2.0 - 12.0 11/14/2017 [facility] HEMATOLOGY Segs 69.7 % 45.0 - 75.0 11/14/[address] [facility] Segs-Bands # 4.7 K/CMM 1.5 - 8.1 11/14/2017 [facility] HEMATOLOGY Eosinophils 4.7 % 0.0 - 4.0 11/14/[address] [facility] Basophils 0.5 % 0.0 - 1.0 11/14/2017 [facility] HEMATOLOGY Eosinophils # 0.3 K/CMM 0.0 - 0.5 11/14/[address] [facility] Monocytes # 0.6 K/CMM 0.0 - 0.8 11/14/[address] [facility] Lymphocytes # 1.0 K/CMM 1.0 - 5.5 11/14/[address] [facility] RDW 13.7 % 11.5 - 14.5 11/14/[address] [facility] Platelet 355 K/CMM 133 - 450 11/14/[address] [facility] MPV 7.6 fL 7.4 - 10.4 11/14/[address] [facility] MCHC 34.1 g/dL 32.0 - 36.0 11/14/[address] [facility] MCH 30.1 pg 27.0 - 31.0 11/14/[address] [facility] MCV 88.3 fL 80.0 - 94.0 11/14/[address] [facility] RBC 2.86 M/CMM 4.70 - 6.10 11/14/[address] [facility] WBC 6.7 K/CMM 3.7 - 10.4 11/14/[address] [facility] Hct 25.2 % 42.0 - 54.0 11/14/[address] [facility] Hgb 8.6 g/dL 14.0 - 18.0 11/14/2017 [facility] CHEM PANEL eGFR 70 mL/min/1.73m2 11/13/2017 Result Comment: The eGFR is calculated using the CKD-EPI formula. In most young, healthy individuals the eGFR will be >90 mL/min/1.73m2. The eGFR declines with age. An eGFR of 60-89 may be normal in some populations, particularly the elderly, for whom the CKD-EPI formula has not been extensively validated. Use of the eGFR is not recommended in the following populations: Individuals with unstable creatinine concentrations, including patients and those with serious co-morbid conditions. Patients with extremes in muscle mass or diet. The data above are obtained from the National Kidney Disease Education Program (NKDEP) which additionally recommends that when the eGFR is used in patients with extremes of body mass index for purposes of drug dosing, the eGFR should be multiplied by the estimated BMI. [facility] CHEM PANEL Sodium Lvl 138 meq/L 135 - 145 11/13/2017 [facility] CHEM PANEL Potassium Lvl 4.6 meq/L 3.5 - 5.1 11/13/2017 [facility] CHEM PANEL Creatinine Lvl 1.10 mg/dL 0.50 - 1.40 11/13/2017 [facility] CHEM PANEL BUN 13 mg/dL 7 - 22 11/13/2017 [facility] CHEM PANEL Glucose Lvl 138 mg/dL 70 - 99 11/13/2017 [facility] CHEM PANEL Chloride Lvl 103 meq/L 95 - 109 11/13/2017 [facility] CHEM PANEL Calcium Lvl 8.7 mg/dL 8.5 - 10.5 11/13/2017 [facility] CHEM PANEL CO2 28 meq/L 24 - 32 11/13/2017 [facility] CHEM PANEL AGAP 11.6 meq/L 10.0 - 20.0 11/13/2017 [facility] HEMATOLOGY Segs-Bands # 4.3 K/CMM 1.5 - 8.1 11/13/[address] [facility] Lymphocytes 18.3 % 20.0 - 40.0 11/13/2017 [facility] HEMATOLOGY Eosinophils 5.0 % 0.0 - 4.0 11/13/2017 [facility] HEMATOLOGY Basophils 0.4 % 0.0 - 1.0 11/13/2017 [facility] HEMATOLOGY Monocytes 11.9 % 2.0 - 12.0 11/13/2017 [facility] HEMATOLOGY Lymphocytes # 1.2 K/CMM 1.0 - 5.5 11/13/2017 [facility] HEMATOLOGY Monocytes # 0.8 K/CMM 0.0 - 0.8 11/13/2017 [facility] HEMATOLOGY Eosinophils # 0.3 K/CMM 0.0 - 0.5 11/13/2017 [facility] HEMATOLOGY Segs 64.4 % 45.0 - 75.0 11/13/[address] [facility] MPV 7.6 fL 7.4 - 10.4 11/13/[address] [facility] Platelet 315 K/CMM 133 - 450 11/13/[address] [facility] RDW 13.5 % 11.5 - 14.5 11/13/[address] [facility] MCV 87.8 fL 80.0 - 94.0 11/13/[address] [facility] MCH 29.9 pg 27.0 - 31.0 11/13/[address] [facility] MCHC 34.1 g/dL 32.0 - 36.0 11/13/[address] [facility] RBC 2.90 M/CMM 4.70 - 6.10 11/13/[address] [facility] WBC 6.6 K/CMM 3.7 - 10.4 11/13/[address] [facility] Hgb 8.7 g/dL 14.0 - 18.0 11/13/[address] [facility] Hct 25.5 % 42.0 - 54.0 11/13/2017 [facility] AGAP 13.4 meq/L 10.0 - 20.0 11/12/2017 [facility] eGFR 72 mL/min/1.73m2 11/12/2017 Result Comment: The eGFR is calculated using the CKD-EPI formula. In most young, healthy individuals the eGFR will be >90 mL/min/1.73m2. The eGFR declines with age. An eGFR of 60-89 may be normal in some populations, particularly the elderly, for whom the CKD-EPI formula has not been extensively validated. Use of the eGFR is not recommended in the following populations: Individuals with unstable creatinine concentrations, including patients and those with serious co-morbid conditions. Patients with extremes in muscle mass or diet. The data above are obtained from the National Kidney Disease Education Program (NKDEP) which additionally recommends that when the eGFR is used in patients with extremes of body mass index for purposes of drug dosing, the eGFR should be multiplied by the estimated BMI. [facility] ELECTROLYTES Calcium Lvl 8.5 mg/dL 8.5 - 10.5 11/12/2017 [facility] ELECTROLYTES CO2 30 meq/L 24 - 32 11/12/2017 [facility] ELECTROLYTES Chloride Lvl 102 meq/L 95 - 109 11/12/2017 [facility] ELECTROLYTES Potassium Lvl 5.4 meq/L 3.5 - 5.1 11/12/2017 [facility] ELECTROLYTES Sodium Lvl 140 meq/L 135 - 145 11/12/2017 [facility] ELECTROLYTES Creatinine Lvl 1.07 mg/dL 0.50 - 1.40 11/12/2017 [facility] ELECTROLYTES Glucose Lvl 172 mg/dL 70 - 99 11/12/2017 [facility] ELECTROLYTES BUN 12 mg/dL 7 - 22 11/12/2017 [facility] ENDOCRINOLOGY S Preg Negative *NA* (11/11/17 12:01 PM) Negative 11/11/2017 [facility] HEMATOLOGY Eosinophils # 0.3 K/CMM 0.0 - 0.5 11/11/2017 [facility] HEMATOLOGY Lymphocytes # 1.0 K/CMM 1.0 - 5.5 11/11/2017 [facility] HEMATOLOGY Basophils # 0.1 K/CMM 0.0 - 0.2 11/11/2017 [facility] HEMATOLOGY Basophils 0.8 % 0.0 - 1.0 11/11/2017 [facility] HEMATOLOGY Segs-Bands # 5.5 K/CMM 1.5 - 8.1 11/11/2017 [facility] HEMATOLOGY Eosinophils 4.0 % 0.0 - 4.0 11/11/2017 [facility] HEMATOLOGY Monocytes # 0.6 K/CMM 0.0 - 0.8 11/11/2017 [facility] HEMATOLOGY Segs 73.2 % 45.0 - 75.0 11/11/2017 [facility] HEMATOLOGY Lymphocytes 13.4 % 20.0 - 40.0 11/11/2017 [facility] HEMATOLOGY Monocytes 8.6 % 2.0 - 12.0 11/11/2017 [facility] HEMATOLOGY INR 1.19 0.85 - 1.17 11/11/2017 [facility] HEMATOLOGY PT 15.2 s 12.0 - 14.7 11/11/2017 [facility] HEMATOLOGY MCHC 33.2 g/dL 32.0 - 36.0 11/11/[address] [facility] MCH 29.3 pg 27.0 - 31.0 11/11/2017 [facility] HEMATOLOGY MPV 7.5 fL 7.4 - 10.4 11/11/2017 [facility] HEMATOLOGY RDW 13.4 % 11.5 - 14.5 11/11/2017 [facility] HEMATOLOGY Platelet 252 K/CMM 133 - 450 11/11/2017 [facility] HEMATOLOGY WBC 7.5 K/CMM 3.7 - 10.4 11/11/2017 [facility] HEMATOLOGY RBC 3.00 M/CMM 4.70 - 6.10 11/11/2017 [facility] HEMATOLOGY Hct 26.4 % 42.0 - 54.0 11/11/2017 [facility] HEMATOLOGY MCV 88.0 fL 80.0 - 94.0 11/11/2017 [facility] HEMATOLOGY Hgb 8.8 g/dL 14.0 - 18.0 11/11/2017 [facility] HEMATOLOGY PTT 31.9 s 22.9 - 35.8 11/11/2017 [facility] Chest 2 views DX Chest 2 views DX Study: Chest 2 views DX 11/11/2017 10:05 AM [employer] [employer] Ordering Physician: Chavo Belle MD Clinical Indication: Coughing - preop Comparison: May 26, 2015 FINDINGS: The lungs are adequately expanded and clear. There is no evidence for alveolar consolidation, pleural effusion, pulmonary edema or pneumothorax. The cardiomediastinal silhouette is within normal limits. Widespread degenerative thoracic spondylosis is seen. No acute osseous abnormality is seen. 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 Soft tissues are unremarkable. IMPRESSION: No acute cardiopulmonary disease. SL: [id number] 11/11/2017 - - Read by: Ekta Javed MD Dictated Date/time: 11/11/17 11:28 Electronically Signed by: Ekta Javed MD 11/11/17 11:30 FINAL REPORT [facility] Ext Lower Arterial Doppler bilat US Ext Lower Arterial Doppler bilat US EXAM: US ARTERIAL DOPPLER BILATERAL LOWER EXTREMITY CLINICAL INDICATION: 67 years year-old Male with - ulcer of plantar surface of mid foot COMPARISON: None TECHNIQUE: BILATERAL lower extremity arterial Doppler evaluation without pressures was performed with mackenzie scale, color scale and Doppler waveform evaluation. FINDINGS: RIGHT LOWER EXTREMITY: There are normal triphasic waveforms and peak systolic velocities of the right common femoral artery, superficial femoral artery, and popliteal artery. Monophasic waveforms noted in the posterior tibial artery and dorsalis pedis artery. LEFT LOWER EXTREMITY: There are normal triphasic waveforms and peak systolic velocities of the left common femoral artery, superficial femoral artery, popliteal artery. Monophasic waveforms noted in the posterior tibial artery and dorsalis pedis artery. IMPRESSION: 1. No arterial Doppler evidence of significant peripheral arterial occlusive disease in the proximal bilateral lower extremity. 2. Decrease in phasicity in the runoff bilaterally suggestive of mild distal disease. Arteries remain patent. SL: [id number] 11/10/2017 - - Read by: Edgardo Luna MD Dictated Date/time: 11/10/17 08:27 Electronically Signed by: Edgardo Luna MD 11/10/17 08:32 FINAL REPORT [facility] CHEM PANEL Globulin 3.7 g/dL 2.7 - 4.2 11/06/2017 [facility] CHEM PANEL A/G Ratio 0.6 0.7 - 1.6 11/06/2017 [facility] CHEM PANEL B/C Ratio 27 6 - 25 11/06/2017 [facility] CHEM PANEL Bili Total 0.3 mg/dL 0.2 - 1.3 11/06/2017 [facility] CHEM PANEL Alk Phos 90 unit/L 39 - 136 11/06/2017 [facility] CHEM PANEL AST 49 unit/L 0 - 37 11/06/2017 [facility] CHEM PANEL Albumin Lvl 2.4 g/dL 3.5 - 5.0 11/06/2017 [facility] CHEM PANEL ALT 36 unit/L 0 - 65 11/06/2017 [facility] CHEM PANEL Total Protein 6.1 g/dL 6.4 - 8.4 11/06/2017 [facility] HEMATOLOGY PTT 45.8 s 22.9 - 35.8 11/06/2017 [facility] HEMATOLOGY INR 1.23 0.85 - 1.17 11/06/2017 [facility] HEMATOLOGY PT 15.6 s 12.0 - 14.7 11/06/2017 [facility] Ext Lower Venous Doppler Bilat US Ext Lower Venous Doppler Bilat US Patient Name: KATLYN MUNSON : 1950; Age: 67 years Male MR: [id number] Study: Ext Lower Venous Doppler Bilat US 11/05/2017 10:54 AM [employer] [employer] CLINICAL INDICATION: - recent travel. History of right hip replacement COMPARISON: None TECHNIQUE: Sonographic evaluation of the bilateral lower extremity veins was performed using high resolution B-mode imaging, along with pulse and color Doppler imaging. FINDINGS: Right lower extremity: The common femoral vein, femoral vein, popliteal vein and visualized posterior tibial/calf veins are patent and compressible. The saphenofemoral junction and visualized greater saphenous vein are patent and compressible. Left lower extremity: The common femoral vein, superficial femoral vein, popliteal vein and visualized posterior tibial/calf veins are patent and compressible The saphenofemoral junction and visualized greater saphenous vein are patent and compressible. IMPRESSION: No evidence of deep venous thrombosis within the bilateral lower extremities. SL: [id number] 11/05/2017 - - Read by: Jovanna Sapp MD Dictated Date/time: 11/05/17 15:00 Electronically Signed by: Jovanna Sapp MD 11/05/17 15:00 FINAL REPORT [facility] Foot wo contrast MRI Foot wo contrast MRI EXAM: MRI left foot HISTORY: Open wound left foot; diabetes, possible osteomyelitis COMPARISON: Radiographs 11/04/2017 TECHNIQUE: Multiplanar images utilizing relative T1 and T2 weighting. No contrast. FINDINGS: Irregular fluid collection and air pockets in the soft tissues of the distal plantar and dorsal margins of the foot, the collection measures approximately 6 x 5 x 4 cm and may reflect an abscess versus infection with gas producing organism. Resection of the distal third of the 3rd metatarsal and base of the proximal phalanx of the 3rd toe. Abnormal signal throughout most of the proximal phalanx of the 2nd toe may reflect reactive edema or osteomyelitis. SL 13 11/05/2017 - - Read by: Andres Reno MD Dictated Date/time: 11/05/17 12:19 Electronically Signed by: Andres Reno MD 11/05/17 12:34 FINAL REPORT [facility] CHEM PANEL Lactic Acid Lvl 1.4 mMol/L 0.5 - 2.2 11/05/2017 [facility] CHEM PANEL Globulin 5.4 g/dL 2.7 - 4.2 11/05/2017 [facility] CHEM PANEL B/C Ratio 26 6 - 25 11/05/2017 [facility] CHEM PANEL Albumin Lvl 3.2 g/dL 3.5 - 5.0 11/05/2017 [facility] CHEM PANEL Total Protein 8.6 g/dL 6.4 - 8.4 11/05/2017 [facility] CHEM PANEL A/G Ratio 0.6 0.7 - 1.6 11/05/2017 [facility] CHEM PANEL ALT 34 unit/L 0 - 65 11/05/2017 [facility] CHEM PANEL Bili Total 0.4 mg/dL 0.2 - 1.3 11/05/2017 [facility] CHEM PANEL Alk Phos 109 unit/L 39 - 136 11/05/2017 [facility] CHEM PANEL AST 51 unit/L 0 - 37 11/05/2017 [facility] HEMATOLOGY Sed Rate null 0 - 15 11/05/2017 [facility] C-REACTIVE PROTEIN 206.0 mg/L <=2.9 mg/L 11/05/2017 [facility] Foot series DX Foot series DX INDICATION: - L foot diabetic wound Comparison: None FINDINGS: The 4 views of the left foot show normal alignment without dislocations. There appears to be postsurgical changes involving the distal 3rd metatarsal and the proximal base of the proximal phalanx with absence of bone and subcutaneous air. An infection cannot be entirely excluded. Clinical correlation is recommended as well as comparison to prior study or further evaluation. If there is further concern, recommend follow-up radiographs or MRI for complete assessment. IMPRESSION: 1. No acute fractures or dislocation of the left foot. 2. There appears to be postsurgical changes involving the distal 3rd metatarsal and the proximal base of the proximal phalanx with absence of bone and subcutaneous air. An infection cannot be entirely excluded. Clinical correlation is recommended as well as comparison to prior study or further evaluation. SL: [id number] 11/04/2017 - - Read by: Cyrus Velez DO Dictated Date/time: 11/04/17 19:20 Electronically Signed by: Cyrus Velez DO 11/04/17 19:21 FINAL REPORT [facility] ELECTROLYTES AGAP 11.5 meq/L 10.0 - 20.0 05/27/2015 [facility] ELECTROLYTES eGFR 80 mL/min/1.73m2 05/27/2015 Result Comment: The eGFR is calculated using the CKD-EPI formula. In most young, healthy individuals the eGFR will be >90 mL/min/1.73m2. The eGFR declines with age. An eGFR of 60-89 may be normal in some populations, particularly the elderly, for whom the CKD-EPI formula has not been extensively validated. Use of the eGFR is not recommended in the following populations: Individuals with unstable creatinine concentrations, including patients and those with serious co-morbid conditions. Patients with extremes in muscle mass or diet. The data above are obtained from the National Kidney Disease Education Program (NKDEP) which additionally recommends that when the eGFR is used in patients with extremes of body mass index for purposes of drug dosing, the eGFR should be multiplied by the estimated BMI. [facility] ELECTROLYTES Chloride Lvl 103 meq/L 95 - 109 05/27/2015 [facility] ELECTROLYTES CO2 25 meq/L 24 - 32 05/27/2015 [facility] ELECTROLYTES Calcium Lvl 8.5 mg/dL 8.5 - 10.5 05/27/2015 [facility] ELECTROLYTES Creatinine Lvl 1.0 mg/dL 0.5 - 1.4 05/27/2015 [facility] ELECTROLYTES Sodium Lvl 135 meq/L 135 - 145 05/27/2015 [facility] ELECTROLYTES Potassium Lvl 4.5 meq/L 3.5 - 5.1 05/27/2015 [facility] ELECTROLYTES Glucose Lvl 132 mg/dL 70 - 99 05/27/2015 [facility] ELECTROLYTES BUN 14 mg/dL 7 - 22 05/27/2015 [facility] HEMATOLOGY MPV 8.4 fL 7.4 - 10.4 05/27/2015 [facility] HEMATOLOGY MCV 92.1 fL 80.0 - 94.0 05/27/2015 [facility] HEMATOLOGY WBC 10.6 K/CMM 3.7 - 10.4 05/27/[address] [facility] Hct 30.2 % 42.0 - 54.0 05/27/[address] [facility] Hgb 10.6 g/dL 14.0 - 18.0 05/27/2015 [facility] HEMATOLOGY Platelet 257 K/CMM 133 - 450 05/27/[address] [facility] MCH 32.5 pg 27.0 - 31.0 05/27/[address] [facility] RDW 12.6 % 11.5 - 14.5 05/27/[address] [facility] RBC 3.27 M/CMM 4.70 - 6.10 05/27/[address] [facility] MCHC 35.3 g/dL 32.0 - 36.0 05/27/2015 [facility] HEMATOLOGY Segs-Bands # 7.6 K/CMM 1.5 - 8.1 05/27/2015 [facility] HEMATOLOGY Monocytes # 0.7 K/CMM 0.0 - 0.8 05/27/2015 [facility] HEMATOLOGY Lymphocytes # 1.8 K/CMM 1.0 - 5.5 05/27/2015 [facility] HEMATOLOGY Lymphocytes 16.9 % 20.0 - 40.0 05/27/2015 [facility] HEMATOLOGY Eosinophils # 0.4 K/CMM 0.0 - 0.5 05/27/2015 [facility] HEMATOLOGY Basophils # 0.1 K/CMM 0.0 - 0.2 05/27/2015 [facility] HEMATOLOGY Eosinophils 3.8 % 0.0 - 4.0 05/27/2015 [facility] HEMATOLOGY Monocytes 6.8 % 2.0 - 12.0 05/27/2015 [facility] HEMATOLOGY Basophils 0.6 % 0.0 - 1.0 05/27/2015 [facility] HEMATOLOGY Segs 71.9 % 45.0 - 75.0 05/27/2015 [facility] SPECIAL CHEMISTRY Hgb A1C 6.7 % <=5.6 % 05/27/2015 [facility] Chest 1view DX Chest 1view DX CHEST RADIOGRAPH SINGLE VIEW INDICATION: PICC placement COMPARISON: None IMPRESSION: The distal end of a right PICC is superimposed over the expected region of the superior vena cava, in satisfactory position. No acute intrathoracic abnormalities are visualized. SL: 16 05/26/2015 - - Read by: Jamel Herman MD Dictated Date/time: 05/26/15 16:23 Electronically Signed by: Jamel Herman MD 05/26/15 16:23 FINAL REPORT [facility] Foot w/wo contrast MRI Foot w/wo contrast MRI Examination: MRI of the right foot with and without contrast History: Pain and swelling Comparison: Plain films of the right foot from 05/24/2015. TECHNIQUE: Multiplanar, multisequence magnetic resonance imaging of the right forefoot was performed with and without administration of intravenous gadolinium contrast. Findings: Focal ulceration of the medial soft tissues of the first toe is seen with extensive underlying soft tissue inflammatory signal and enhancement. There is diffuse hypointense T1/hyperintense STIR signal abnormality and enhancement throughout the distal phalanx of the first toe. There is a superimposed nondisplaced vertically oriented intra-articular fracture through the medial base of the distal phalanx. The remaining osseous structures are intact. The visualized plantar fascia is intact. The flexor and extensor tendons across the foot are intact. The Lisfranc's ligament complex is intact. The plantar plate complexes are all intact. No rim-enhancing fluid collections are seen. Atrophy with hyperintensity of the forefoot musculature is seen, compatible with acute on chronic denervation. IMPRESSION: 1. Ulceration of the medial soft tissues of the first toe. There is associated osteomyelitis of the underlying distal phalanx of the first toe with superimposed nondisplaced vertically oriented intra-articular fracture of the medial base. SL: 16 05/25/2015 - - Read by: Santosh Palacios MD Dictated Date/time: 05/25/15 15:17 Electronically Signed by: Santosh Palacios MD 05/25/15 15:29 FINAL REPORT [facility] CHEM PANEL eGFR 72 mL/min/1.73m2 05/25/2015 Result Comment: The eGFR is calculated using the CKD-EPI formula. In most young, healthy individuals the eGFR will be >90 mL/min/1.73m2. The eGFR declines with age. An eGFR of 60-89 may be normal in some populations, particularly the elderly, for whom the CKD-EPI formula has not been extensively validated. Use of the eGFR is not recommended in the following populations: Individuals with unstable creatinine concentrations, including patients and those with serious co-morbid conditions. Patients with extremes in muscle mass or diet. The data above are obtained from the National Kidney Disease Education Program (NKDEP) which additionally recommends that when the eGFR is used in patients with extremes of body mass index for purposes of drug dosing, the eGFR should be multiplied by the estimated BMI. [facility] CHEM PANEL Calcium Lvl 8.2 mg/dL 8.5 - 10.5 05/25/2015 [facility] CHEM PANEL Chloride Lvl 106 meq/L 95 - 109 05/25/2015 [facility] CHEM PANEL Potassium Lvl 4.3 meq/L 3.5 - 5.1 05/25/2015 [facility] CHEM PANEL Sodium Lvl 140 meq/L 135 - 145 05/25/2015 [facility] CHEM PANEL Creatinine Lvl 1.1 mg/dL 0.5 - 1.4 05/25/2015 [facility] CHEM PANEL ALT 22 unit/L 0 - 65 05/25/2015 [facility] CHEM PANEL AST 13 unit/L 0 - 37 05/25/2015 [facility] CHEM PANEL Bili Total 0.3 mg/dL 0.2 - 1.3 05/25/2015 [facility] CHEM PANEL Globulin 3.2 g/dL 2.0 - 4.0 05/25/2015 [facility] CHEM PANEL Total Protein 6.0 g/dL 6.4 - 8.4 05/25/2015 [facility] CHEM PANEL Albumin Lvl 2.8 g/dL 3.5 - 5.0 05/25/2015 [facility] CHEM PANEL A/G Ratio 0.9 0.7 - 1.6 05/25/2015 [facility] CHEM PANEL Alk Phos 72 unit/L 39 - 136 05/25/2015 [facility] CHEM PANEL B/C Ratio 19 6 - 25 05/25/2015 [facility] CHEM PANEL CO2 26 meq/L 24 - 32 05/25/2015 [facility] CHEM PANEL BUN 21 mg/dL 7 - 22 05/25/2015 [facility] CHEM PANEL Glucose Lvl 55 mg/dL 70 - 99 05/25/2015 [facility] CHEM PANEL AGAP 12.3 meq/L 10.0 - 20.0 05/25/2015 [facility] HEMATOLOGY Segs-Bands # 7.2 K/CMM 1.5 - 8.1 05/25/2015 [facility] HEMATOLOGY Lymphocytes # 1.4 K/CMM 1.0 - 5.5 05/25/2015 [facility] HEMATOLOGY Basophils 0.3 % 0.0 - 1.0 05/25/2015 [facility] HEMATOLOGY Eosinophils # 0.1 K/CMM 0.0 - 0.5 05/25/2015 [facility] HEMATOLOGY Monocytes # 0.9 K/CMM 0.0 - 0.8 05/25/2015 [facility] HEMATOLOGY Eosinophils 1.1 % 0.0 - 4.0 05/25/2015 [facility] HEMATOLOGY Segs 75.1 % 45.0 - 75.0 05/25/2015 [facility] HEMATOLOGY Lymphocytes 14.2 % 20.0 - 40.0 05/25/2015 [facility] HEMATOLOGY Monocytes 9.3 % 2.0 - 12.0 05/25/2015 [facility] HEMATOLOGY WBC 9.6 K/CMM 3.7 - 10.4 05/25/2015 [facility] HEMATOLOGY Hct 26.7 % 42.0 - 54.0 05/25/2015 [facility] HEMATOLOGY RBC 2.89 M/CMM 4.70 - 6.10 05/25/2015 [facility] HEMATOLOGY Hgb 9.3 g/dL 14.0 - 18.0 05/25/[address] [facility] MCHC 34.8 g/dL 32.0 - 36.0 05/25/[address] [facility] MCH 32.2 pg 27.0 - 31.0 05/25/2015 [facility] HEMATOLOGY MCV 92.5 fL 80.0 - 94.0 05/25/2015 [facility] HEMATOLOGY Platelet 182 K/CMM 133 - 450 05/25/2015 [facility] HEMATOLOGY RDW 12.8 % 11.5 - 14.5 05/25/2015 [facility] HEMATOLOGY MPV 7.9 fL 7.4 - 10.4 05/25/2015 [facility] URINE AND STOOL UA Sq Epi None Seen 05/25/2015 [facility] URINE AND STOOL UA Urobilinogen <=1.0 mg/dL 0.1 - 1.0 05/25/2015 [facility] URINE AND STOOL UA Color Ltyellow 05/25/2015 [facility] URINE AND STOOL UA Turbidity Clear (05/24/15 11:04 PM) Clear 05/25/2015 [facility] URINE AND STOOL UA Spec Grav 1.016 <=1.030 05/25/2015 [facility] URINE AND STOOL UA Protein Negative mg/dL Negative mg/dL 05/25/2015 [facility] URINE AND STOOL UA pH 5.0 5.0 - 8.0 05/25/2015 [facility] URINE AND STOOL UA Bili Negative *NA* (05/24/15 11:04 PM) Negative 05/25/2015 [facility] URINE AND STOOL UA Blood Negative (05/24/15 11:04 PM) Negative 05/25/2015 [facility] URINE AND STOOL UA Ketones Negative mg/dL Negative mg/dL 05/25/2015 [facility] URINE AND STOOL UA Glucose Negative mg/dL Negative mg/dL 05/25/2015 [facility] URINE AND STOOL UA Mucus Few /LPF None Seen /LPF 05/25/2015 [facility] URINE AND STOOL UA RBC null 0 - 2 05/25/2015 [facility] URINE AND STOOL UA WBC 1 /HPF 0 - 5 05/25/2015 [facility] URINE AND STOOL UA Leuk Est Negative (05/24/15 11:04 PM) Negative 05/25/2015 [facility] URINE AND STOOL UA Nitrite Negative (05/24/15 11:04 PM) Negative 05/25/2015 [facility] Ext Lower Arterial Doppler unilat US Ext Lower Arterial Doppler unilat US Please refer to the heart lab report, located under vascular in [facility]. 05/24/2015 - - Electronically Signed by: Josiah Tirado 05/26/15 09:39 FINAL REPORT [facility] URINE AND STOOL UA Color Nurys 05/24/2015 [facility] URINE AND STOOL UA Urobilinogen <=1.0 mg/dL 0.1 - 1.0 05/24/2015 [facility] URINE AND STOOL UA Sq Epi None Seen 05/24/2015 [facility] URINE AND STOOL UA Bili Negative *NA* (05/24/15 11:20 AM) Negative 05/24/2015 [facility] URINE AND STOOL UA Ketones Negative mg/dL Negative mg/dL 05/24/2015 [facility] URINE AND STOOL UA Glucose Negative mg/dL Negative mg/dL 05/24/2015 [facility] URINE AND STOOL UA RBC 2 /HPF 0 - 2 05/24/2015 [facility] URINE AND STOOL UA Bacteria Occasional /HPF None Seen /HPF 05/24/2015 [facility] URINE AND STOOL UA Mucus Few /LPF None Seen /LPF 05/24/2015 [facility] URINE AND STOOL UA Hyal Cast 3 /LPF 0 - 2 05/24/2015 [facility] URINE AND STOOL UA Leuk Est Negative (05/24/15 11:20 AM) Negative 05/24/2015 [facility] URINE AND STOOL UA Blood Negative (05/24/15 11:20 AM) Negative 05/24/2015 [facility] URINE AND STOOL UA Nitrite Negative (05/24/15 11:20 AM) Negative 05/24/2015 [facility] URINE AND STOOL UA WBC 2 /HPF 0 - 5 05/24/2015 [facility] URINE AND STOOL UA Turbidity Slight *ABN* (05/24/15 11:20 AM) Clear 05/24/2015 [facility] URINE AND STOOL UA Spec Grav 1.018 <=1.030 05/24/2015 [facility] URINE AND STOOL UA pH 5.0 5.0 - 8.0 05/24/2015 [facility] URINE AND STOOL UA Protein Negative mg/dL Negative mg/dL 05/24/2015 [facility] CHEM PANEL Lactic Acid Lvl 1.2 mMol/L 0.5 - 2.2 05/24/2015 [facility] ELECTROLYTES AGAP 11.9 meq/L 10.0 - 20.0 05/24/2015 [facility] ELECTROLYTES B/C Ratio 18 6 - 25 05/24/2015 [facility] ELECTROLYTES Globulin 4.4 g/dL 2.0 - 4.0 05/24/2015 [facility] ELECTROLYTES A/G Ratio 0.8 0.7 - 1.6 05/24/2015 [facility] ELECTROLYTES Chloride Lvl 101 meq/L 95 - 109 05/24/2015 [facility] ELECTROLYTES Sodium Lvl 136 meq/L 135 - 145 05/24/2015 [facility] ELECTROLYTES Potassium Lvl 3.9 meq/L 3.5 - 5.1 05/24/2015 [facility] ELECTROLYTES eGFR 58 mL/min/1.73m2 05/24/2015 Result Comment: The eGFR is calculated using the CKD-EPI formula. In most young, healthy individuals the eGFR will be >90 mL/min/1.73m2. The eGFR declines with age. An eGFR of 60-89 may be normal in some populations, particularly the elderly, for whom the CKD-EPI formula has not been extensively validated. Use of the eGFR is not recommended in the following populations: Individuals with unstable creatinine concentrations, including patients and those with serious co-morbid conditions. Patients with extremes in muscle mass or diet. The data above are obtained from the National Kidney Disease Education Program (NKDEP) which additionally recommends that when the eGFR is used in patients with extremes of body mass index for purposes of drug dosing, the eGFR should be multiplied by the estimated BMI. [facility] ELECTROLYTES Bili Total 0.7 mg/dL 0.2 - 1.3 05/24/2015 [facility] ELECTROLYTES Alk Phos 84 unit/L 39 - 136 05/24/2015 [facility] ELECTROLYTES AST 20 unit/L 0 - 37 05/24/2015 [facility] ELECTROLYTES Albumin Lvl 3.4 g/dL 3.5 - 5.0 05/24/2015 [facility] ELECTROLYTES ALT 30 unit/L 0 - 65 05/24/2015 [facility] ELECTROLYTES CO2 27 meq/L 24 - 32 05/24/2015 [facility] ELECTROLYTES Creatinine Lvl 1.3 mg/dL 0.5 - 1.4 05/24/2015 [facility] ELECTROLYTES Total Protein 7.8 g/dL 6.4 - 8.4 05/24/2015 [facility] ELECTROLYTES Calcium Lvl 8.9 mg/dL 8.5 - 10.5 05/24/2015 [facility] ELECTROLYTES Glucose Lvl 58 mg/dL 70 - 99 05/24/2015 [facility] ELECTROLYTES BUN 24 mg/dL 7 - 22 05/24/2015 [facility] HEMATOLOGY Monocytes # 0.9 K/CMM 0.0 - 0.8 05/24/2015 [facility] HEMATOLOGY Lymphocytes # 1.4 K/CMM 1.0 - 5.5 05/24/2015 [facility] HEMATOLOGY Eosinophils # 0.1 K/CMM 0.0 - 0.5 05/24/2015 [facility] HEMATOLOGY Segs-Bands # 9.8 K/CMM 1.5 - 8.1 05/24/2015 [facility] HEMATOLOGY Eosinophils 1.1 % 0.0 - 4.0 05/24/2015 [facility] HEMATOLOGY Basophils 0.2 % 0.0 - 1.0 05/24/2015 [facility] HEMATOLOGY Lymphocytes 11.5 % 20.0 - 40.0 05/24/[address] [facility] Segs 79.8 % 45.0 - 75.0 05/24/[address] [facility] Monocytes 7.4 % 2.0 - 12.0 05/24/[address] [facility] PTT 38.4 s 22.9 - 35.8 05/24/[address] [facility] PT 14.6 s 12.0 - 14.7 05/24/[address] [facility] INR 1.13 0.85 - 1.17 05/24/[address] [facility] MPV 8.0 fL 7.4 - 10.4 05/24/[address] [facility] Platelet 252 K/CMM 133 - 450 05/24/[address] [facility] WBC 12.3 K/CMM 3.7 - 10.4 05/24/[address] [facility] MCH 31.8 pg 27.0 - 31.0 05/24/[address] [facility] RDW 12.6 % 11.5 - 14.5 05/24/[address] [facility] Hgb 10.8 g/dL 14.0 - 18.0 05/24/[address] [facility] RBC 3.40 M/CMM 4.70 - 6.10 05/24/[address] [facility] Hct 31.6 % 42.0 - 54.0 05/24/[address] [facility] MCHC 34.2 g/dL 32.0 - 36.0 05/24/[address] [facility] MCV 92.9 fL 80.0 - 94.0 05/24/[address] [facility] Sed Rate 79 mm/h 0 - 15 05/24/2015 [facility] IMMUNOLOGY C-REACTIVE PROTEIN 60.4 mg/L <=2.9 mg/L 05/24/2015 [facility] Foot series DX Foot series DX Examination: Right foot, 3 view History: Pain Post Trauma Comparison: None. Findings: Multiple views of the right foot show no acute bony fracture, joint dislocation, or suspicious osseous erosion. Arterial calcifications are seen. Bones are demineralized. Mild dorsal soft tissue swelling along the foot is seen. IMPRESSION: No acute bony abnormality of the right foot. SL: 16 05/24/2015 - - Read by: Santosh Palacios MD Dictated Date/time: 05/24/15 11:38 Electronically Signed by: Santosh Palacios MD 05/24/15 11:39 FINAL REPORT [facility] CHEMISTRY eGFR 92 mL/min/1.73m2 09/03/2013 1Result Comment: The eGFR is calculated using the CKD-EPI formula. In most young, healthy individuals the eGFR will be >90 mL/min/1.73m2. The eGFR declines with age. An eGFR of 60-89 may be normal in some populations, particularly the elderly, for whom the CKD-EPI formula has not been extensively validated. Use of the eGFR is not recommended in the following populations: Individuals with unstable creatinine concentrations, including patients and those with serious co-morbid conditions. Patients with extremes in muscle mass or diet. The data above are obtained from the National Kidney Disease Education Program (NKDEP) which additionally recommends that when the eGFR is used in patients with extremes of body mass index for purposes of drug dosing, the eGFR should be multiplied by the estimated BMI. [facility] CHEMISTRY Calcium Lvl 9.1 mg/dL 8.5 - 10.5 09/03/2013 Normal [facility] CHEMISTRY Potassium Lvl 4.0 meq/L 3.5 - 5.1 09/03/2013 Normal [facility] CHEMISTRY Chloride Lvl 105 meq/L 95 - 109 09/03/2013 Normal [facility] CHEMISTRY Creatinine Lvl 0.9 mg/dL 0.5 - 1.4 09/03/2013 Normal [facility] CHEMISTRY Sodium Lvl 138 meq/L 135 - 145 09/03/2013 Normal [facility] CHEMISTRY Glucose Lvl 158 mg/dL 70 - 99 09/03/2013 [facility] 2Interpretive Data: Adult reference range values reflect the clinical guidelines of the [place] [employer]. [facility] CHEMISTRY CO2 27 meq/L 24 - 32 09/03/2013 Normal [facility] CHEMISTRY BUN 18 mg/dL 7 - 22 09/03/2013 Normal [facility] CHEMISTRY AGAP 10.0 meq/L 10.0 - 20.0 09/03/2013 Normal [facility] HEMATOLOGY RBC X 10x6 3.79 M/CMM 4.70 - 6.10 09/03/2013 LOW [facility] HEMATOLOGY WBC X 10x3 5.8 K/CMM 3.7 - 10.4 09/03/2013 Normal [facility] HEMATOLOGY Hgb 11.8 g/dL 14.0 - 18.0 09/03/2013 LOW [facility] HEMATOLOGY MCV 92.3 fL 80.0 - 94.0 09/03/2013 Normal [facility] HEMATOLOGY Hct 34.9 % 42.0 - 54.0 09/03/2013 LOW [facility] HEMATOLOGY MPV 8.6 fL 7.4 - 10.4 09/03/2013 Normal [facility] HEMATOLOGY MCH 31.3 pg 27.0 - 31.0 09/03/2013 HI [facility] HEMATOLOGY RDW 13.4 % 11.5 - 14.5 09/03/2013 Normal [facility] HEMATOLOGY MCHC 33.9 g/dL 32.0 - 36.0 09/03/2013 Normal [facility] HEMATOLOGY Platelet 197 K/CMM 133 - 450 09/03/2013 Normal [facility] HEMATOLOGY Monocytes 8.0 % 2.0 - 12.0 09/03/2013 Normal [facility] HEMATOLOGY Eosinophils # 0.2 K/CMM 0.0 - 0.5 09/03/2013 Normal [facility] HEMATOLOGY Basophils # 0.0 K/CMM 0.0 - 0.2 09/03/2013 Normal [facility] HEMATOLOGY Basophils 0.4 % 0.0 - 1.0 09/03/2013 Normal [facility] HEMATOLOGY Eosinophils 3.7 % 0.0 - 4.0 09/03/2013 Normal [facility] HEMATOLOGY Lymphocytes # 1.6 K/CMM 1.0 - 5.5 09/03/2013 Normal [facility] HEMATOLOGY Segs-Bands # 3.5 K/CMM 1.5 - 8.1 09/03/2013 Normal [facility] HEMATOLOGY Lymphocytes 27.0 % 20.0 - 40.0 09/03/2013 Normal [facility] HEMATOLOGY Segs 60.9 % 45.0 - 75.0 09/03/2013 Normal [facility] HEMATOLOGY Monocytes # 0.5 K/CMM 0.0 - 0.8 09/03/2013 Normal [facility] Vital Signs Vital Sign Value Date Comments Source Systolic (mm Hg) 146 11/15/2017 [facility] Diastolic (mm Hg) 77 11/15/2017 [facility] Temperature Oral (F) 98.7 F 11/15/2017 [facility] Heart Rate 72 11/15/2017 [facility] Respitory Rate 16 11/15/2017 [facility] Temperature Oral (F) 98.9 F 11/15/2017 [facility] Heart Rate 79 11/15/2017 [facility] Systolic (mm Hg) 133 11/15/2017 [facility] Diastolic (mm Hg) 75 11/15/2017 [facility] Respitory Rate 16 11/15/2017 [facility] Systolic (mm Hg) 150 11/15/2017 [facility] Diastolic (mm Hg) 78 11/15/2017 [facility] Respitory Rate 16 11/15/2017 [facility] Heart Rate 71 11/15/2017 [facility] Temperature Oral (F) 98.7 F 11/15/2017 [facility] Weight 92.358 11/05/2017 [facility] Height 180.34 cm 11/05/2017 [facility] BMI Calculated 28.4 11/05/2017 [facility] Weight 88.636 11/04/2017 [facility] BMI Calculated 27.25 11/04/2017 [facility] Height 180.34 cm 11/04/2017 [facility] Heart Rate 87 05/31/2015 [facility] Temperature Oral (F) 98.3 F 05/31/2015 [facility] Respitory Rate 16 05/31/2015 [facility] Systolic (mm Hg) 134 05/31/2015 [facility] Diastolic (mm Hg) 74 05/31/2015 [facility] Systolic (mm Hg) 138 05/31/2015 [facility] Diastolic (mm Hg) 80 05/31/2015 [facility] Respitory Rate 16 05/31/2015 [facility] Heart Rate 82 05/31/2015 [facility] Temperature Oral (F) 98.2 F 05/31/2015 [facility] Temperature Oral (F) 98.0 F 05/31/2015 [facility] Respitory Rate 16 05/31/2015 [facility] Systolic (mm Hg) 132 05/31/2015 [facility] Diastolic (mm Hg) 78 05/31/2015 [facility] Heart Rate 78 05/31/2015 [facility] BMI Calculated 28.97 05/24/2015 [facility] Height 180.34 cm 05/24/2015 [facility] Weight 94.205 05/24/2015 [facility] Weight 92.273 05/24/2015 [facility] BMI Calculated 28.37 05/24/2015 [facility] Height 180.34 cm 05/24/2015 [facility] Systolic (mm Hg) 135 09/03/2013 [facility] Respitory Rate 16 09/03/2013 [facility] Diastolic (mm Hg) 80 09/03/2013 [facility] Respitory Rate 11 09/03/2013 [facility] Diastolic (mm Hg) 84 09/03/2013 [facility] Systolic (mm Hg) 131 09/03/2013 [facility] Weight 95.455 09/03/2013 [facility] Height 180.34 cm 09/03/2013 [facility] Temperature Oral (F) 98.2 F 09/03/2013 [facility] Respitory Rate 18 09/03/2013 [facility] Systolic (mm Hg) 153 09/03/2013 [facility] Heart Rate 87 09/03/2013 [facility] Diastolic (mm Hg) 89 09/03/2013 [facility] Encounters Location Location Details Encounter Type Encounter Number Reason For Visit Attending Provider ADM Date DC Date Status Source [facility] Emergency [id number] MORA ZOROASTRIANISM 09/03/2013 09/03/2013 Active [facility] Inpatient [id number] Charbel Tyson 05/24/2015 05/31/2015 [facility] Inpatient [id number] Yariel Womack 11/04/2017 11/15/2017 [facility] Procedures Procedure Code Date Perfomer Comments Source Tonsillectomy [id number] [facility] Hip replacement<sup>1</sup> [id number] right hip [facility] Implantation of penile prosthesis [id number] [facility] Manipulation of deviated nasal septum [id number] [facility]
--- OUTSIDE RECORDS SUMMARY | 2018-08-20 05:35 | XMS REPORT | Summary of Care ---
Author Author [facility] Organization [facility] Address Unknown Phone Unavailable Encounter ERIKA Woodruff(MICHEAL) [id number] Date(s): 11/04/17 - 11/15/17 [facility] [address] [place] [address]- Encounter Diagnosis Low back pain (Final) - Non-pressure chronic ulcer of other part of left foot with unspecified severity (Final) - Hyperlipidemia, unspecified (Final) - Chronic pain syndrome (Final) - Other specified bacterial agents as the cause of diseases classified elsewhere (Final) - Type 2 diabetes mellitus with diabetic chronic kidney disease (Final) - Sepsis, unspecified organism (Final) - 11/20/17 Acute kidney failure with tubular necrosis (Final) - Atherosclerosis of [place] arteries of extremities with gangrene, left leg (Final) - Osteomyelitis, unspecified (Final) - Cutaneous abscess of left foot (Final) - Encounter for immunization (Final) - Do not resuscitate (Final) - Type 2 diabetes mellitus with diabetic polyneuropathy (Final) - Type 2 diabetes mellitus with foot ulcer (Final) - Type 2 diabetes mellitus with other specified complication (Final) - Type 2 diabetes mellitus with hyperglycemia (Final) - Essential (primary) hypertension (Final) - Discharge Disposition: Home Care with Home Health Attending Physician: Yariel Womack MD Admitting Physician: Yariel Womack MD Vital Signs 1 2 3 Most recent to oldest [Reference Range]: 180.34 cm (11/05/17 8:22 AM) 180.34 cm (11/04/17 5:53 PM) Height 98.7 DegF (11/15/17 4:09 PM) 98.9 DegF (11/15/17 11:28 AM) 98.7 DegF (11/15/17 7:58 AM) Temperature Oral [96.4-99.1 DegF] 146/77 mmHg *HI* (11/15/17 4:09 PM) 133/75 mmHg (11/15/17 11:28 AM) 150/78 mmHg *HI* (11/15/17 7:58 AM) Blood Pressure [90-140/60-90 mmHg] 16 BRMIN (11/15/17 4:09 PM) 16 BRMIN (11/15/17 11:28 AM) 16 BRMIN (11/15/17 7:58 AM) Respiratory Rate [14-20 BRMIN] 72 bpm (11/15/17 4:09 PM) 79 bpm (11/15/17 11:28 AM) 71 bpm (11/15/17 7:58 AM) Peripheral Pulse Rate [60-100 bpm] 92.358 kg (11/05/17 8:22 AM) 88.636 kg (11/04/17 5:53 PM) Weight 28.4 m2 (11/05/17 8:22 AM) 27.25 m2 (11/04/17 5:53 PM) Body Mass Index Problem List Condition Effective Dates Status Health Status Informant Diabetes Resolved mellitus(Confirmed) History of penile Resolved implant(Confirmed) H/O foot Resolved surgery(Confirmed)1 History of hip Resolved surgery(Confirmed)2 HTN Resolved (hypertension)(Confi rmed) Toe Resolved infection(Confirmed) 1Left foot. third metatarsal bone removal. Toe is stil present 2right hip Allergies, Adverse Reactions, Alerts Substance Reaction Severity Status codeine Active OxyCONTIN Moderate Active Medications acetaminophen 325 mg, 1 tab, Route: PO, Drug form: TAB, Q4H, Dosing Weight 88.636, kg, PRN Renato n Score 4-6, Start date: 11/05/17 3:31:00 MARKETING PROJECT SPECIALIST, Duration: 30 day, Stop date: 07/14 3:30:00 MARKETING PROJECT SPECIALIST Notes: Do not exceed 4 gm/day. (Same as: Tylenol) Start Date: 11/05/17 Stop Date: 11/15/17 Status: Discontinued acetylcysteine oral solution (mg) 600 mg, 6 mL, Route: PO, Drug form: SOLN, BID, Dosing Weight 92.358, kg, Start d ate: 11/11/17 17:00:00 MARKETING PROJECT SPECIALIST, Stop date: 11/13/17 9:00:00 MARKETING PROJECT SPECIALIST Notes: WASTE: F/P - Black; E - Municipal Trash Bin Start Date: 11/11/17 Stop Date: 11/13/17 Status: Completed Afrin Extra Moisturizing 1 spray, Route: NASAL, Drug Form: SPRY, Dosing Weight 88.636, kg, BID, Start sarah e: 11/05/17 9:00:00 MARKETING PROJECT SPECIALIST, Duration: 30 day, Stop date: 12/04/17 17:00:00 MARKETING PROJECT SPECIALIST Notes: (Same as: Afrin) Start Date: 11/05/17 Stop Date: 11/15/17 Status: Discontinued albuterol-ipratropium 2.5-0.5 mg inhalation solution 3 mL, Route: NEB, Dosing Weight 92.358, kg, ONCE, STAT, Start date: 11/12/17 13: 41:00 MARKETING PROJECT SPECIALIST, Stop date: 11/12/17 13:41:00 MARKETING PROJECT SPECIALIST Start Date: 11/12/17 Stop Date: 11/12/17 Status: Discontinued Ancef + sterile water 20 mL 2 gm, Route: IVP, PRE OP, Dosing Weight 92.358, kg, Start date: 11/11/17 11:00:0 0 MARKETING PROJECT SPECIALIST, Duration: 30 day, Stop date: 12/11/17 10:59:00 MARKETING PROJECT SPECIALIST, ABX Indication: Surgi raphael Prophylaxis Notes: (Same As: Prasad Hameed) MEDICATION WASTE Product Size: 1000 mgP roduct Wasted: ___ mg Start Date: 11/11/17 Stop Date: 11/13/17 Status: Discontinued ANES fentaNYL 25 microgram, Route: IVP, Q5Min, Dosing Weight 92.358, kg, PRN Pain Score 4-6, P riority: Routine, Start date: 11/07/17 8:35:00 MARKETING PROJECT SPECIALIST, Duration: 4 doses or times, Stop date: Limited # of times Start Date: 11/07/17 Stop Date: 11/07/17 Status: Discontinued ANES flumazenil 0.2 mg, Route: IVP, PRN, Dosing Weight 92.358, kg, PRN Benzodiazepine Reversal, Initial dose, Start date: 11/07/17 8:35:00 MARKETING PROJECT SPECIALIST, Duration: 30 day, Stop date: 09/13 8:34:00 MARKETING PROJECT SPECIALIST Start Date: 11/07/17 Stop Date: 11/07/17 Status: Discontinued ANES HYDROmorphone 0.5 mg, Route: IVP, Q5Min, Dosing Weight 92.358, kg, PRN Pain Score 7-10, Start date: 11/07/17 8:35:00 MARKETING PROJECT SPECIALIST, Duration: 4 doses or times, Stop date: Limited # of times Start Date: 11/07/17 Stop Date: 11/07/17 Status: Discontinued ANES meperidine 12.5 mg, Route: IVP, Q30Min, Dosing Weight 92.358, kg, PRN Other -See Comment, F or shivering, Start date: 11/07/17 8:35:00 MARKETING PROJECT SPECIALIST, Duration: 2 doses or times, Stop date: Limited # of times Start Date: 11/07/17 Stop Date: 11/07/17 Status: Discontinued ANES naloxone 0.4 mg, Route: IVP, Q2MIN, Dosing Weight 92.358, kg, PRN Narcotic Reversal, Star t date: 11/07/17 8:35:00 MARKETING PROJECT SPECIALIST, Duration: 8 doses or times, Stop date: Limited # o f times Start Date: 11/07/17 Stop Date: 11/07/17 Status: Discontinued ANES ondansetron 4 mg, Route: IVP, ONCE, Dosing Weight 92.358, kg, PRN Nausea & Vomiting, Start date: 11/07/17 8:35:00 MARKETING PROJECT SPECIALIST Start Date: 11/07/17 Stop Date: 11/07/17 Status: Discontinued ANES promethazine 6.25 mg, Route: IVPB, ONCE, Dosing Weight 92.358, kg, PRN Nausea & Vomiting, Start date: 11/07/17 8:35:00 MARKETING PROJECT SPECIALIST Start Date: 11/07/17 Stop Date: 11/07/17 Status: Discontinued atenolol 25 mg oral tablet 25 mg, 1 tab, Route: PO, Drug form: TAB, Bedtime, Dosing Weight 88.636, kg, Star t date: 11/05/17 21:00:00 MARKETING PROJECT SPECIALIST, Duration: 30 day, Stop date: 12/04/17 21:00:00 CS T Notes: (Same As:Tendannyin) Start Date: 11/05/17 Stop Date: 11/05/17 Status: Canceled atorvastatin 40 mg oral tablet 40 mg=1 tab, PO, Bedtime, # 90 tab, 0 Refill(s) Start Date: 11/05/17 Status: Ordered Bystolic 10 mg, 1 tab, Route: PO, Drug form: TAB, Daily, Dosing Weight 92.358, kg, Start date: 11/05/17 12:00:00 MARKETING PROJECT SPECIALIST, Stop date: 12/05/17 21:00:00 MARKETING PROJECT SPECIALIST Notes: (same as: Bystolic) Start Date: 11/05/17 Stop Date: 11/15/17 Status: Discontinued Bystolic 10 mg oral tablet 10 mg=1 tab, PO, Daily, # 30 tab, 0 Refill(s) Start Date: 11/05/17 Status: Ordered calcium-vitamin D 185 mg-1000U 1 tab, Route: PO, Drug Form: TAB, Dosing Weight 88.636, kg, BID, Start date: 08/13 9:00:00 MARKETING PROJECT SPECIALIST, Duration: 30 day, Stop date: 12/04/17 17:00:00 MARKETING PROJECT SPECIALIST Start Date: 11/05/17 Stop Date: 11/13/17 Status: Discontinued ceFAZolin (ANES) Route: IV, Drug form: INJ, ONCE, Stop date: 11/12/17 14:11:00 MARKETING PROJECT SPECIALIST Start Date: 11/12/17 Stop Date: 11/12/17 Status: Completed cefTRIAXone (ANES) Route: IV, Drug form: INJ, ONCE, Stop date: 11/12/17 14:27:00 MARKETING PROJECT SPECIALIST Start Date: 11/12/17 Stop Date: 11/12/17 Status: Completed cetirizine 10 mg, 2 tab, Route: PO, Drug form: TAB, Bedtime, Dosing Weight 88.636, kg, Star t date: 11/05/17 9:00:00 MARKETING PROJECT SPECIALIST, Stop date: 12/04/17 21:00:00 MARKETING PROJECT SPECIALIST Notes: (Same As: Zyrtec) Start Date: 11/05/17 Stop Date: 11/15/17 Status: Discontinued Colace 100 mg oral capsule 400 mg, 4 cap, Route: PO, Drug form: CAP, BID, Dosing Weight 88.636, kg, Start d ate: 11/05/17 9:00:00 MARKETING PROJECT SPECIALIST, Duration: 30 day, Stop date: 12/04/17 17:00:00 MARKETING PROJECT SPECIALIST Notes: (Same as: Colace) (Do Not Crush) Start Date: 11/05/17 Stop Date: 11/15/17 Status: Discontinued cyanocobalamin 5,000 microgram, Route: PO, Daily, Dosing Weight 88.636, kg, Start date: 9:00:00 MARKETING PROJECT SPECIALIST, Duration: 30 day, Stop date: 12/04/17 9:00:00 MARKETING PROJECT SPECIALIST Start Date: 11/05/17 Stop Date: 11/13/17 Status: Discontinued cyclobenzaprine 10 mg, 1 tab, Route: PO, Drug form: TAB, TID, Dosing Weight 92.358, kg, PRN as n eeded for muscle spasm, Start date: 11/05/17 10:52:00 MARKETING PROJECT SPECIALIST, Duration: 30 day, Sto p date: 12/05/17 10:51:00 MARKETING PROJECT SPECIALIST Notes: (Same As: Flexeril) Start Date: 11/05/17 Stop Date: 11/15/17 Status: Discontinued cyclobenzaprine 10 mg oral tablet 10 mg=1 tab, PO, TID, PRN for spasms, # 30 tab, 0 Refill(s) Start Date: 11/05/17 Stop Date: 11/15/17 Status: Ordered Dextrose 50% Syringe 25 gm, 50 mL, Route: IVP, Drug Form: INJ, Dosing Weight 88.636, kg, PRN, PRN Blo od Glucose Results, Start date: 11/05/17 8:14:00 MARKETING PROJECT SPECIALIST, Duration: 30 day, Stop sarah e: 12/05/17 8:13:00 MARKETING PROJECT SPECIALIST Start Date: 11/05/17 Stop Date: 11/13/17 Status: Discontinued Dextrose 50% Syringe 12.5 gm, 25 mL, Route: IVP, Drug Form: INJ, Dosing Weight 88.636, kg, PRN, PRN B lood Glucose Results, Start date: 11/05/17 8:14:00 MARKETING PROJECT SPECIALIST, Duration: 30 day, Stop d ate: 12/05/17 8:13:00 MARKETING PROJECT SPECIALIST Start Date: 11/05/17 Stop Date: 11/13/17 Status: Discontinued Dextrose 50% Syringe 25 gm, 50 mL, Route: IVP, Drug Form: INJ, Dosing Weight 92.358, kg, PRN, PRN Blo od Glucose Results, Start date: 11/13/17 14:17:00 MARKETING PROJECT SPECIALIST, Duration: 30 day, Stop da te: 12/13/17 14:16:00 MARKETING PROJECT SPECIALIST Start Date: 11/13/17 Stop Date: 11/15/17 Status: Discontinued Dextrose 50% Syringe 12.5 gm, 25 mL, Route: IVP, Drug Form: INJ, Dosing Weight 92.358, kg, PRN, PRN B lood Glucose Results, Start date: 11/13/17 14:17:00 MARKETING PROJECT SPECIALIST, Duration: 30 day, Stop date: 12/13/17 14:16:00 MARKETING PROJECT SPECIALIST Start Date: 11/13/17 Stop Date: 11/15/17 Status: Discontinued Dilaudid 2 mg, 1 tab, Route: PO, Drug form: TAB, Q4H, Dosing Weight 92.358, kg, PRN Pain Score 7-10, Start date: 11/05/17 11:23:00 MARKETING PROJECT SPECIALIST, Duration: 30 day, Stop date: 07/14 11:22:00 MARKETING PROJECT SPECIALIST Notes: (Same as: Dilaudid) Start Date: 11/05/17 Stop Date: 11/07/17 Status: Discontinued Dilaudid 0.5 mg, 0.5 mL, Route: IVP, Drug form: INJ, Q4H, Dosing Weight 92.358, kg, PRN P ain Score 7-10, Start date: 11/07/17 9:01:00 MARKETING PROJECT SPECIALIST, Duration: 30 day, Stop date: 0 12/07/17 9:00:00 MARKETING PROJECT SPECIALIST Notes: Same as: Dilaudid Start Date: 11/07/17 Stop Date: 11/10/17 Status: Discontinued Dilaudid 2 mg, 1 tab, Route: PO, Drug form: TAB, Q6H, Dosing Weight 92.358, kg, PRN Pain Score 7-10, Start date: 11/10/17 9:22:00 MARKETING PROJECT SPECIALIST, Duration: 30 day, Stop date: 12/10 9:21:00 MARKETING PROJECT SPECIALIST Notes: (Same as: Dilaudid) Start Date: 11/10/17 Stop Date: 11/13/17 Status: Discontinued doxycycline hyclate 100 mg oral capsule 100 mg=1 cap, PO, Q12H, # 28 cap, 0 Refill(s) Start Date: 11/05/17 Stop Date: 11/14/17 Status: Discontinued enalapril 2.5 mg, 1 tab, Route: PO, Drug form: TAB, Bedtime, Dosing Weight 88.636, kg, Sta rt date: 11/05/17 21:00:00 MARKETING PROJECT SPECIALIST, Duration: 30 day, Stop date: 12/04/17 21:00:[address] Notes: (Same as: Vasotec) Start Date: 11/05/17 Stop Date: 11/15/17 Status: Discontinued ePHEDrine (ANES) Route: IV, Drug form: INJ, ONCE, Stop date: 11/07/17 8:46:00 MARKETING PROJECT SPECIALIST Start Date: 11/07/17 Stop Date: 11/07/17 Status: Completed esmolol (ANES) Route: IV, Drug form: INJ, ONCE, Stop date: 11/07/17 8:46:00 MARKETING PROJECT SPECIALIST Start Date: 11/07/17 Stop Date: 11/07/17 Status: Completed fentaNYL (ANES) Route: IV, Drug form: INJ, ONCE, Stop date: 11/07/17 8:25:00 MARKETING PROJECT SPECIALIST Start Date: 11/07/17 Stop Date: 11/07/17 Status: Completed fentaNYL (ANES) Route: IV, Drug form: INJ, ONCE, Stop date: 11/12/17 14:11:00 MARKETING PROJECT SPECIALIST Start Date: 11/12/17 Stop Date: 11/12/17 Status: Completed glipiZIDE 5 mg, 1 tab, Route: PO, Drug form: TAB, BID, Dosing Weight 92.358, kg, Start sarah e: 11/13/17 17:00:00 MARKETING PROJECT SPECIALIST, Duration: 30 day, Stop date: 12/13/17 9:00:00 MARKETING PROJECT SPECIALIST Notes: (Same as: Glucotrol) 30 min before meals. Start Date: 11/13/17 Stop Date: 11/15/17 Status: Discontinued glucagon 1 mg, Route: IM, Drug form: PDR/INJ, PRN, Dosing Weight 88.636, kg, PRN Blood Gl ucose Results, Start date: 11/05/17 8:14:00 MARKETING PROJECT SPECIALIST, Duration: 30 day, Stop date: 8:13:00 MARKETING PROJECT SPECIALIST Start Date: 11/05/17 Stop Date: 11/13/17 Status: Discontinued glucagon 1 mg, Route: IM, Drug form: PDR/INJ, PRN, Dosing Weight 92.358, kg, PRN Blood Gl ucose Results, Start date: 11/13/17 14:17:00 MARKETING PROJECT SPECIALIST, Duration: 30 day, Stop date: 0 12/13/17 14:16:00 MARKETING PROJECT SPECIALIST Start Date: 11/13/17 Stop Date: 11/15/17 Status: Discontinued heparin 5,000 unit, 1 mL, Route: SUB-Q, Drug form: INJ, Q12H, Dosing Weight 88.636, kg, Start date: 11/05/17 9:00:00 MARKETING PROJECT SPECIALIST, Stop date: 12/04/17 21:00:00 MARKETING PROJECT SPECIALIST Notes: porcine heparin Start Date: 11/05/17 Stop Date: 11/05/17 Status: Canceled heparin (ANES) Route: IV, Drug form: INJ, ONCE, Stop date: 11/12/17 14:26:00 MARKETING PROJECT SPECIALIST Start Date: 11/12/17 Stop Date: 11/12/17 Status: Completed influenza virus vaccine, inactivated 0.5 mL, Route: IM, Drug Form: SUSP, Daily, Start date: 11/05/17 12:00:00 MARKETING PROJECT SPECIALIST, Du ration: 1 doses or times, Stop date: 11/05/17 12:00:00 MARKETING PROJECT SPECIALIST Notes: (Same as: Fluzone Quadrivalent, Fluarix Quadrivalent)For 3 years of age a nd older (0.5 mL IM)Shake well before use Start Date: 11/05/17 Stop Date: 11/05/17 Status: Completed insulin glargine 100 units/mL subcutaneous solution 5 unit, 0.05 mL, Route: SUB-Q, Drug form: SOLN, ONCE, Dosing Weight 92.358, kg, Start date: 11/11/17 22:33:00 MARKETING PROJECT SPECIALIST, Stop date: 11/11/17 22:33:00 MARKETING PROJECT SPECIALIST Notes: (Same as: Lantus)Do not hold insulin without contacting prescriberWASTE: F/P - Black; E - Municipal Trash Bin "single patient use only" Start Date: 11/11/17 Stop Date: 11/11/17 Status: Completed insulin lispro 6 unit, 0.06 mL, Route: SUB-Q, Drug form: SOLN, TID-Before Meals, Dosing Weight 88.636, kg, PRN Blood Glucose Results, Start date: 11/05/17 8:14:00 MARKETING PROJECT SPECIALIST, Duratio n: 30 day, Stop date: 12/05/17 8:13:00 MARKETING PROJECT SPECIALIST Notes: Roll in palms of hands gently; Do not shake `vigorously. (Same as: Juan David og )"Single Patient Use Only "WASTE: F/P - Black; E - Municipal Trash Bin Stabl e for 28 days at room temperature.Expires in days from Date Start Date: 11/05/17 Stop Date: 11/13/17 Status: Discontinued insulin lispro 3 unit, 0.03 mL, Route: SUB-Q, Drug form: SOLN, TID-Before Meals, Dosing Weight 88.636, kg, PRN Blood Glucose Results, Start date: 11/05/17 8:14:00 MARKETING PROJECT SPECIALIST, Duratio n: 30 day, Stop date: 12/05/17 8:13:00 MARKETING PROJECT SPECIALIST Notes: Roll in palms of hands gently; Do not shake `vigorously. (Same as: Humal og )"Single Patient Use Only "WASTE: F/P - Black; E - Municipal Trash Bin Stabl e for 28 days at room temperature.Expires in days from Date Start Date: 11/05/17 Stop Date: 11/13/17 Status: Discontinued insulin lispro 12 unit, 0.12 mL, Route: SUB-Q, Drug form: SOLN, TID-Before Meals, Dosing Weight 88.636, kg, PRN Blood Glucose Results, Start date: 11/05/17 8:14:00 MARKETING PROJECT SPECIALIST, Durati on: 30 day, Stop date: 12/05/17 8:13:00 MARKETING PROJECT SPECIALIST Notes: Roll in palms of hands gently; Do not shake `vigorously. (Same as: [place] [facility] )"Single Patient Use Only "WASTE: F/P - Black; E - Municipal Trash Bin Stabl e for 28 days at room temperature.Expires in days from Date Start Date: 11/05/17 Stop Date: 11/13/17 Status: Discontinued insulin lispro 15 unit, 0.15 mL, Route: SUB-Q, Drug form: SOLN, TID-Before Meals, Dosing Weight 88.636, kg, PRN Blood Glucose Results, Start date: 11/05/17 8:14:00 MARKETING PROJECT SPECIALIST, Durati on: 30 day, Stop date: 12/05/17 8:13:00 MARKETING PROJECT SPECIALIST Notes: Roll in palms of hands gently; Do not shake `vigorously. (Same as: Humal og )"Single Patient Use Only "WASTE: F/P - Black; E - Municipal Trash Bin Stabl e for 28 days at room temperature.Expires in days from Date Start Date: 11/05/17 Stop Date: 11/13/17 Status: Discontinued insulin lispro 9 unit, 0.09 mL, Route: SUB-Q, Drug form: SOLN, TID-Before Meals, Dosing Weight 88.636, kg, PRN Blood Glucose Results, Start date: 11/05/17 8:14:00 MARKETING PROJECT SPECIALIST, Duratio n: 30 day, Stop date: 12/05/17 8:13:00 MARKETING PROJECT SPECIALIST Notes: Roll in palms of hands gently; Do not shake `vigorously. (Same as: Humal og )"Single Patient Use Only "WASTE: F/P - Black; E - Municipal Trash Bin Stabl e for 28 days at room temperature.Expires in days from Date Start Date: 11/05/17 Stop Date: 11/13/17 Status: Discontinued insulin lispro 4 unit, 0.04 mL, Route: SUB-Q, Drug form: SOLN, Bedtime, Dosing Weight 88.636, k g, PRN Blood Glucose Results, Start date: 11/05/17 8:14:00 MARKETING PROJECT SPECIALIST, Duration: 30 day , Stop date: 12/05/17 8:13:00 MARKETING PROJECT SPECIALIST Notes: Roll in palms of hands gently; Do not shake `vigorously. (Same as: Humal og )"Single Patient Use Only "WASTE: F/P - Black; E - Municipal Trash Bin Stabl e for 28 days at room temperature.Expires in days from Date Start Date: 11/05/17 Stop Date: 11/13/17 Status: Discontinued insulin lispro 2 unit, 0.02 mL, Route: SUB-Q, Drug form: SOLN, Bedtime, Dosing Weight 88.636, k g, PRN Blood Glucose Results, Start date: 11/05/17 8:14:00 MARKETING PROJECT SPECIALIST, Duration: 30 day , Stop date: 12/05/17 8:13:00 MARKETING PROJECT SPECIALIST Notes: Roll in palms of hands gently; Do not shake `vigorously. (Same as: [facility] )"Single Patient Use Only "WASTE: F/P - Black; E - Municipal Trash Bin Stabl e for 28 days at room temperature.Expires in days from Date Start Date: 11/05/17 Stop Date: 11/13/17 Status: Discontinued insulin lispro 3 unit, 0.03 mL, Route: SUB-Q, Drug form: SOLN, Bedtime, Dosing Weight 88.636, k g, PRN Blood Glucose Results, Start date: 11/05/17 8:14:00 MARKETING PROJECT SPECIALIST, Duration: 30 day , Stop date: 12/05/17 8:13:00 MARKETING PROJECT SPECIALIST Notes: Roll in palms of hands gently; Do not shake `vigorously. (Same as: [facility] )"Single Patient Use Only "WASTE: F/P - Black; E - Municipal Trash Bin Stabl e for 28 days at room temperature.Expires in days from Date Start Date: 11/05/17 Stop Date: 11/13/17 Status: Discontinued insulin lispro 1 unit, 0.01 mL, Route: SUB-Q, Drug form: SOLN, Bedtime, Dosing Weight 88.636, k g, PRN Blood Glucose Results, Start date: 11/05/17 8:14:00 MARKETING PROJECT SPECIALIST, Duration: 30 day , Stop date: 12/05/17 8:13:00 MARKETING PROJECT SPECIALIST Notes: Roll in palms of hands gently; Do not shake `vigorously. (Same as: [facility] )"Single Patient Use Only "WASTE: F/P - Black; E - Municipal Trash Bin Stabl e for 28 days at room temperature.Expires in days from Date Start Date: 11/05/17 Stop Date: 11/13/17 Status: Discontinued insulin lispro 9 unit, 0.09 mL, Route: SUB-Q, Drug form: SOLN, TID-Before Meals, Dosing Weight 92.358, kg, PRN Blood Glucose Results, Start date: 11/13/17 14:17:00 MARKETING PROJECT SPECIALIST, Durati on: 30 day, Stop date: 12/13/17 14:16:00 MARKETING PROJECT SPECIALIST Notes: Roll in palms of hands gently; Do not shake `vigorously. (Same as: [place] [facility] )"Single Patient Use Only "WASTE: F/P - Black; E - Municipal Trash Bin Stabl e for 28 days at room temperature.Expires in days from Date Start Date: 11/13/17 Stop Date: 11/15/17 Status: Discontinued insulin lispro 6 unit, 0.06 mL, Route: SUB-Q, Drug form: SOLN, TID-Before Meals, Dosing Weight 92.358, kg, PRN Blood Glucose Results, Start date: 11/13/17 14:17:00 MARKETING PROJECT SPECIALIST, Durati on: 30 day, Stop date: 12/13/17 14:16:00 MARKETING PROJECT SPECIALIST Notes: Roll in palms of hands gently; Do not shake `vigorously. (Same as: [place] [facility] )"Single Patient Use Only "WASTE: F/P - Black; E - Municipal Trash Bin Stabl e for 28 days at room temperature.Expires in days from Date Start Date: 11/13/17 Stop Date: 11/15/17 Status: Discontinued insulin lispro 12 unit, 0.12 mL, Route: SUB-Q, Drug form: SOLN, TID-Before Meals, Dosing Weight 92.358, kg, PRN Blood Glucose Results, Start date: 11/13/17 14:17:00 MARKETING PROJECT SPECIALIST, Durat ion: 30 day, Stop date: 12/13/17 14:16:00 MARKETING PROJECT SPECIALIST Notes: Roll in palms of hands gently; Do not shake `vigorously. (Same as: Humal og )"Single Patient Use Only "WASTE: F/P - Black; E - Municipal Trash Bin Stabl e for 28 days at room temperature.Expires in days from Date Start Date: 11/13/17 Stop Date: 11/15/17 Status: Discontinued insulin lispro 15 unit, 0.15 mL, Route: SUB-Q, Drug form: SOLN, TID-Before Meals, Dosing Weight 92.358, kg, PRN Blood Glucose Results, Start date: 11/13/17 14:17:00 MARKETING PROJECT SPECIALIST, Durat ion: 30 day, Stop date: 12/13/17 14:16:00 MARKETING PROJECT SPECIALIST Notes: Roll in palms of hands gently; Do not shake `vigorously. (Same as: Humal )"Single Patient Use Only "WASTE: F/P - Black; E - Municipal Trash Bin Stabl e for 28 days at room temperature.Expires in days from Date Start Date: 11/13/17 Stop Date: 11/15/17 Status: Discontinued insulin lispro 3 unit, 0.03 mL, Route: SUB-Q, Drug form: SOLN, TID-Before Meals, Dosing Weight 92.358, kg, PRN Blood Glucose Results, Start date: 11/13/17 14:17:00 MARKETING PROJECT SPECIALIST, Durati on: 30 day, Stop date: 12/13/17 14:16:00 MARKETING PROJECT SPECIALIST Notes: Roll in palms of hands gently; Do not shake `vigorously. (Same as: [facility] )"Single Patient Use Only "WASTE: F/P - Black; E - Municipal Trash Bin Stabl e for 28 days at room temperature.Expires in days from Date Start Date: 11/13/17 Stop Date: 11/15/17 Status: Discontinued insulin lispro 2 unit, 0.02 mL, Route: SUB-Q, Drug form: SOLN, Bedtime, Dosing Weight 92.358, k g, PRN Blood Glucose Results, Start date: 11/13/17 14:17:00 MARKETING PROJECT SPECIALIST, Duration: 30 da y, Stop date: 12/13/17 14:16:00 MARKETING PROJECT SPECIALIST Notes: Roll in palms of hands gently; Do not shake `vigorously. (Same as: Humal og )"Single Patient Use Only "WASTE: F/P - Black; E - Municipal Trash Bin Stabl e for 28 days at room temperature.Expires in days from Date Start Date: 11/13/17 Stop Date: 11/15/17 Status: Discontinued insulin lispro 1 unit, 0.01 mL, Route: SUB-Q, Drug form: SOLN, Bedtime, Dosing Weight 92.358, k g, PRN Blood Glucose Results, Start date: 11/13/17 14:17:00 MARKETING PROJECT SPECIALIST, Duration: 30 da y, Stop date: 12/13/17 14:16:00 MARKETING PROJECT SPECIALIST Notes: Roll in palms of hands gently; Do not shake `vigorously. (Same as: Humal og )"Single Patient Use Only "WASTE: F/P - Black; E - Municipal Trash Bin Stabl e for 28 days at room temperature.Expires in days from Date Start Date: 11/13/17 Stop Date: 11/15/17 Status: Discontinued insulin lispro 4 unit, 0.04 mL, Route: SUB-Q, Drug form: SOLN, Bedtime, Dosing Weight 92.358, k g, PRN Blood Glucose Results, Start date: 11/13/17 14:17:00 MARKETING PROJECT SPECIALIST, Duration: 30 da y, Stop date: 12/13/17 14:16:00 MARKETING PROJECT SPECIALIST Notes: Roll in palms of hands gently; Do not shake `vigorously. (Same as: Humal og )"Single Patient Use Only "WASTE: F/P - Black; E - [facility] Tr[facility] Stabl e for 28 days at room temperature.Expires in days from Date Start Date: 11/13/17 Stop Date: 11/15/17 Status: Discontinued insulin lispro 3 unit, 0.03 mL, Route: SUB-Q, Drug form: SOLN, Bedtime, Dosing Weight 92.358, k g, PRN Blood Glucose Results, Start date: 11/13/17 14:17:00 MARKETING PROJECT SPECIALIST, Duration: 30 da y, Stop date: 12/13/17 14:16:00 MARKETING PROJECT SPECIALIST Notes: Roll in palms of hands gently; Do not shake `vigorously. (Same as: Juan David lea )"Single Patient Use Only "WASTE: F/P - Black; E - [facility] Trash Bin Stabl e for 28 days at room temperature.Expires in days from Date Start Date: 11/13/17 Stop Date: 11/15/17 Status: Discontinued Insulin regular 4 unit, Route: IVP, ONCE, Dosing Weight 92.358, kg, Start date: 11/12/17 13:14:0 0 MARKETING PROJECT SPECIALIST, Stop date: 11/12/17 13:14:00 MARKETING PROJECT SPECIALIST Start Date: 11/12/17 Stop Date: 11/12/17 Status: Completed Lactated Ringers Injection IV (ANES) 1000 mL Route: IV, Total Volume: 1,000, Start date: 11/07/17 7:39:00 MARKETING PROJECT SPECIALIST, Stop date: 10/13 8:39:00 MARKETING PROJECT SPECIALIST Start Date: 11/07/17 Stop Date: 11/07/17 Status: Completed Lactated Ringers Injection IV 1000 mL 1,000 mL, Rate: 25 ml/hr, Infuse over: 40 hr, Route: IV, Dosing Weight 92.358 kg , Total Volume: 1,000, Start date: 11/07/17 7:35:00 MARKETING PROJECT SPECIALIST, Duration: 30 day, Stop date: 12/07/17 7:34:00 MARKETING PROJECT SPECIALIST, 2.17, m2 Start Date: 11/07/17 Stop Date: 11/07/17 Status: Discontinued Lantus 100 units/mL 20 unit, 0.2 mL, Route: SUB-Q, Drug form: SOLN, Bedtime, Dosing Weight 88.636, k g, Start date: 11/05/17 21:00:00 MARKETING PROJECT SPECIALIST, Duration: 30 day, Stop date: 12/04/17 21:0 0:00 MARKETING PROJECT SPECIALIST Notes: (Same as: Lantus)Do not hold insulin without contacting prescriberWASTE: F/P - Black; E - [facility] Trash Bin "single patient use only" Start Date: 11/05/17 Stop Date: 11/15/17 Status: Discontinued lidocaine (ANES) Route: IV, Drug form: INJ, ONCE, Stop date: 11/07/17 8:25:00 MARKETING PROJECT SPECIALIST Start Date: 11/07/17 Stop Date: 11/07/17 Status: Completed Lovenox 40 mg, Route: SUB-Q, Drug form: INJ, Q24H, Dosing Weight 92.358, kg, Priority: W ithin 8 hours, Start date: 11/12/17 15:00:00 MARKETING PROJECT SPECIALIST, Duration: 30 day, Stop date: 0 12/11/17 15:00:00 MARKETING PROJECT SPECIALIST Start Date: 11/12/17 Stop Date: 11/12/17 Status: Deleted Lovenox 40 mg, 0.4 mL, Route: SUB-Q, Drug form: INJ, [id number], Dosing Weight 92.358, kg, Start date: 11/05/17 11:00:00 MARKETING PROJECT SPECIALIST, Duration: 30 day, Stop date: 12/04/17 22:00: 00 MARKETING PROJECT SPECIALIST Notes: (Same as: Lovenox) Start Date: 11/05/17 Stop Date: 11/15/17 Status: Discontinued magnesium oxide 250 mg, 1 tab, Route: PO, Drug form: TAB, Bedtime, Dosing Weight 88.636, kg, Sta rt date: 11/05/17 21:00:00 MARKETING PROJECT SPECIALIST, Duration: 30 day, Stop date: 12/04/17 21:00:[address] Start Date: 11/05/17 Stop Date: 11/15/17 Status: Discontinued midazolam (ANES) Route: IV, Drug form: SOLN, ONCE, Stop date: 11/07/17 8:25:00 MARKETING PROJECT SPECIALIST Start Date: 11/07/17 Stop Date: 11/07/17 Status: Completed midazolam (ANES) Route: IV, Drug form: SOLN, ONCE, Stop date: 11/12/17 14:11:00 MARKETING PROJECT SPECIALIST Start Date: 11/12/17 Stop Date: 11/12/17 Status: Completed morphine Sulfate 2 mg, 1 mL, Route: IV, Drug form: SOLN, Q4H, Dosing Weight 92.358, kg, PRN Pain Score 6-10, Priority: NOW, Start date: 11/07/17 4:57:00 MARKETING PROJECT SPECIALIST, Duration: 30 day, S top date: 12/07/17 4:56:00 MARKETING PROJECT SPECIALIST Start Date: 11/07/17 Stop Date: 11/07/17 Status: Discontinued morphine Sulfate 2 mg, 1 mL, Route: IV, Drug form: INJ, Daily, Dosing Weight 92.358, kg, PRN Woun d Care, Start date: 11/12/17 10:55:00 MARKETING PROJECT SPECIALIST, Stop date: 12/12/17 10:54:00 MARKETING PROJECT SPECIALIST Notes: (Same as:MORPhine Sulfate) Start Date: 11/12/17 Stop Date: 11/15/17 Status: Discontinued Motrin 600 mg, Route: PO, Drug form: TAB, ONCE, Dosing Weight 88.636, kg, Priority: STA T, Start date: 11/05/17 2:16:00 MARKETING PROJECT SPECIALIST, Stop date: 11/05/17 2:16:00 MARKETING PROJECT SPECIALIST Start Date: 11/05/17 Stop Date: 11/05/17 Status: Completed [facility] 10/325 oral tablet 1 tab, Route: PO, Drug Form: TAB, Dosing Weight 92.358, kg, Q6H, PRN Pain Score 4-6, Start date: 11/05/17 11:23:00 MARKETING PROJECT SPECIALIST, Duration: 30 day, Stop date: 12/05/17 11 :22:00 MARKETING PROJECT SPECIALIST Notes: Do not exceed 4gm/day of acetaminophen. (Same as: [facility] 325/10) Start Date: 11/05/17 Stop Date: 11/15/17 Status: Discontinued normal saline 0.9% IV 1,000 mL 1,000 mL, Rate: 100 ml/hr, Infuse over: 10 hr, Route: IV, Dosing Weight 92.358 k g, Total Volume: 1,000, Start date: 11/12/17 14:47:00 MARKETING PROJECT SPECIALIST, Duration: 30 day, Sto p date: 12/12/17 14:46:00 MARKETING PROJECT SPECIALIST, 2.17, m2 Start Date: 11/12/17 Stop Date: 11/15/17 Status: Discontinued normal saline 0.9% IV 1,000 mL 1,000 mL, Rate: 100 ml/hr, Infuse over: 10 hr, Route: IV, Dosing Weight 92.358 k g, Total Volume: 1,000, Start date: 11/11/17 10:05:00 MARKETING PROJECT SPECIALIST, Duration: 6 hr, Stop date: 11/11/17 16:04:00 MARKETING PROJECT SPECIALIST, 2.17, m2 Start Date: 11/11/17 Stop Date: 11/11/17 Status: Completed ondansetron (ANES) Route: IV, Drug form: INJ, ONCE, Stop date: 11/07/17 8:46:00 MARKETING PROJECT SPECIALIST Start Date: 11/07/17 Stop Date: 11/07/17 Status: Completed phenylephrine (ANES) Route: IV, Drug form: INJ, ONCE, Stop date: 11/07/17 8:46:00 MARKETING PROJECT SPECIALIST Start Date: 11/07/17 Stop Date: 11/07/17 Status: Completed Plavix 75 mg, 1 tab, Route: PO, Drug form: TAB, Daily, Dosing Weight 92.358, kg, Start date: 11/13/17 9:00:00 MARKETING PROJECT SPECIALIST, Duration: 30 day, Stop date: 12/12/17 9:00:00 MARKETING PROJECT SPECIALIST Notes: (Same As: Plavix) Start Date: 11/13/17 Stop Date: 11/15/17 Status: Discontinued pneumococcal 13-valent vaccine 0.5 mL, Route: IM, Drug Form: INJ, Daily, Start date: 11/05/17 12:00:00 MARKETING PROJECT SPECIALIST, Dur ation: 1 doses or times, Stop date: 11/05/17 12:00:00 MARKETING PROJECT SPECIALIST Notes: Shake well prior to use (Same as: Prevnar 13) Start Date: 11/05/17 Stop Date: 11/05/17 Status: Completed potassium gluconate 1,190 mg, Route: PO, Drug form: TAB, Bedtime, Dosing Weight 88.636, kg, Start da te: 11/05/17 21:00:00 MARKETING PROJECT SPECIALIST, Duration: 30 day, Stop date: 12/04/17 21:00:00 MARKETING PROJECT SPECIALIST Start Date: 11/05/17 Stop Date: 11/13/17 Status: Discontinued propofol (ANES) Route: IV, Drug form: INJ, ONCE, Stop date: 11/07/17 8:25:00 MARKETING PROJECT SPECIALIST Start Date: 11/07/17 Stop Date: 11/07/17 Status: Completed RN please don't give VANCO dose RN please don't give VANCO dose, before TROUGH level is DRAWN, Drug form: MISC, Route: MISC, ONCE, 11/06/17 18:30:00 MARKETING PROJECT SPECIALIST, Stop date: 11/06/17 18:30:00 MARKETING PROJECT SPECIALIST Start Date: 11/06/17 Stop Date: 11/13/17 Status: Completed Rocephin + sterile water 20 mL 2 gm, Route: IVPB, [id number], Dosing Weight 92.358, kg, Start date: 11/09/17 14:00 :00 MARKETING PROJECT SPECIALIST, Stop date: 11/22/17 17:00:00 MARKETING PROJECT SPECIALIST, ABX Indication: Bone/Joint Infection Notes: (Same As: Rocephin).Use with 100 mL NS and infuse over 30 min MEDICA TION WASTE Product Size: 2000 mgProduct Wasted: ___ mg Start Date: 11/09/17 Stop Date: 11/15/17 Status: Discontinued Santyl 1 appl, Route: TOP, Daily, Drug form: OINT, Start date: 11/13/17 9:00:00 MARKETING PROJECT SPECIALIST, Du ration: 30 day, Stop date: 12/12/17 9:00:00 MARKETING PROJECT SPECIALIST Notes: (Same As: Santyl) Start Date: 11/13/17 Stop Date: 11/15/17 Status: Discontinued Sodium Chloride 0.9% (Bolus) IV 1,000 mL, 1000 ml/hr, Infuse Over: 1 hr, Route: IV, 1,000, Drug form: INJ, ONCE, Priority: STAT, Dosing Weight 88.636 kg, Start date: 11/05/17 2:00:00 MARKETING PROJECT SPECIALIST, Stop date: 11/05/17 2:00:00 MARKETING PROJECT SPECIALIST Start Date: 11/05/17 Stop Date: 11/05/17 Status: Completed Sodium Chloride 0.9% IV (ANES) 1000 mL Route: IV, Total Volume: 1,000, Start date: 11/12/17 13:26:00 MARKETING PROJECT SPECIALIST, Stop date: 14:26:00 MARKETING PROJECT SPECIALIST Start Date: 11/12/17 Stop Date: 11/12/17 Status: Completed Sodium Chloride 0.9% IV 1,000 mL 1,000 mL, Rate: 75 ml/hr, Infuse over: 13.3 hr, Route: IV, Dosing Weight 88.636 kg, Total Volume: 1,000, Priority: STAT, Start date: 11/05/17 2:00:00 MARKETING PROJECT SPECIALIST, Durat ion: 1 doses or times, Stop date: 11/05/17 15:17:00 MARKETING PROJECT SPECIALIST, 2.12, m2 Start Date: 11/05/17 Stop Date: 11/05/17 Status: Completed Sodium Chloride 0.9% IV 1,000 mL 1,000 mL, Rate: 60 ml/hr, Infuse over: 16.7 hr, Route: IV, Dosing Weight 92.358 kg, Total Volume: 1,000, Start date: 11/12/17 2:00:00 MARKETING PROJECT SPECIALIST, Stop date: 11/12/17 1 4:00:00 MARKETING PROJECT SPECIALIST, 2.17, m2 Start Date: 11/12/17 Stop Date: 11/12/17 Status: Completed Sodium Chloride 0.9% IV 1000 mL 1,000 mL, Rate: 25 ml/hr, Infuse over: 40 hr, Route: IV, Dosing Weight 92.358 kg , Total Volume: 1,000, Start date: 11/12/17 13:42:00 MARKETING PROJECT SPECIALIST, Duration: 30 day, Stop date: 12/12/17 13:41:00 MARKETING PROJECT SPECIALIST, 2.17, m2 Start Date: 11/12/17 Stop Date: 11/12/17 Status: Discontinued Tylenol 650 mg, Route: PO, Drug form: TAB, ONCE, Dosing Weight 88.636, kg, Priority: STA T, Start date: 11/05/17 2:16:00 MARKETING PROJECT SPECIALIST, Stop date: 11/05/17 2:16:00 MARKETING PROJECT SPECIALIST Start Date: 11/05/17 Stop Date: 11/05/17 Status: Completed vancomycin (ANES) 1000 mg Route: IV, Drug form: INJ, Start date: 11/12/17 13:26:00 MARKETING PROJECT SPECIALIST, Stop date: 8 14:26:00 MARKETING PROJECT SPECIALIST Start Date: 11/12/17 Stop Date: 11/12/17 Status: Completed vancomycin + Sodium Chloride 0.9% IV 250 mL 1,000 mg, Route: IVPB, [id number], Dosing Weight 88.636, kg, Start date: 11/05/17 1 6:00:00 MARKETING PROJECT SPECIALIST, Duration: 5 day, Stop date: 11/10/17 5:00:00 MARKETING PROJECT SPECIALIST, ABX Indication: S kin/Soft Tissue Infection Notes: TIME CRITICAL MEDICATION(Same As: Vancocin)Infusion rate< 1000 mg: infuse over 1 [id number] - 1500 mg: infuse over 1.5 [id number] - 2000 mg: infuse over 2 hours> 2001 mg: infuse over 2.5 hoursFor adult patients only: Round to nearest 250 mg per Medical Staff approval MEDICATION WASTE Product Size: 1000 mgProduct Wasted: ___ mg Start Date: 11/05/17 Stop Date: 11/09/17 Status: Discontinued vancomycin + Sodium Chloride 0.9% IV 250 mL 1,000 mg, Route: IVPB, ONCE, Dosing Weight 88.636, kg, Priority: STAT, Start sarah e: 11/05/17 2:00:00 MARKETING PROJECT SPECIALIST, Stop date: 11/05/17 2:00:00 MARKETING PROJECT SPECIALIST, ABX Indication: Skin/S oft Tissue Infection Notes: TIME CRITICAL MEDICATION(Same As: Vancocin)Infusion rate< 1000 mg: infuse over 1 [id number] - 1500 mg: infuse over 1.5 [id number] - 2000 mg: infuse over 2 hours> 2001 mg: infuse over 2.5 hoursFor adult patients only: Round to nearest 250 mg per Medical Staff approval MEDICATION WASTE Product Size: 1000 mgProduct Wasted: ___ mg Start Date: 11/05/17 Stop Date: 11/05/17 Status: Completed Vicoprofen 7.5 mg-200 mg oral tablet 1 tab, Route: PO, Drug Form: TAB, Dosing Weight 92.358, kg, Q6H, PRN Pain Score 6-10, Start date: 11/05/17 10:52:00 MARKETING PROJECT SPECIALIST, Duration: 30 day, Stop date: 12/05/17 1 0:51:00 MARKETING PROJECT SPECIALIST Notes: (Same as: Vicoprofen) Start Date: 11/05/17 Stop Date: 11/05/17 Status: Discontinued Vitamin B1 250 mg, 2.5 tab, Route: PO, Drug form: TAB, BID, Dosing Weight 88.636, kg, Start date: 11/05/17 9:00:00 MARKETING PROJECT SPECIALIST, Duration: 30 day, Stop date: 12/04/17 17:00:00 MARKETING PROJECT SPECIALIST Notes: (Same As: Vitamin B1) Start Date: 11/05/17 Stop Date: 11/13/17 Status: Discontinued Vitamin D3 2000 intl units oral tablet 2,000 IntlUnit, 2 tab, Route: PO, Drug form: TAB, BID, Dosing Weight 88.636, kg, Start date: 11/05/17 9:00:00 MARKETING PROJECT SPECIALIST, Duration: 30 day, Stop date: 12/04/17 17:00:00 MARKETING PROJECT SPECIALIST Notes: Same as : Vitamin D3 Start Date: 11/05/17 Stop Date: 11/15/17 Status: Discontinued Zosyn 3.375 gm, Route: IVPB, ONCE, Dosing Weight 88.636, kg, Priority: STAT, Start sarah e: 11/05/17 2:00:00 MARKETING PROJECT SPECIALIST, Stop date: 11/05/17 2:00:00 MARKETING PROJECT SPECIALIST, ABX Indication: Skin/S oft Tissue Infection Start Date: 11/05/17 Stop Date: 11/05/17 Status: Completed Zosyn + Sodium Chloride 0.9% IV 100 mL 3.375 gm, Route: IVPB, [id number], Dosing Weight 88.636, kg, CrCl >=20 ml/min infuse over 4 hours, Start date: 11/05/17 12:00:00 MARKETING PROJECT SPECIALIST, Duration: 5 day, Stop date: 11/10/17 4:00:00 MARKETING PROJECT SPECIALIST, ABX Indication: Skin/Soft Tissue Infection Notes: (Same as: Zosyn)Dosing based on Piperacillin component MEDICATION WA BRET Product Size: 3375 mgProduct Wasted: ___ mg Start Date: 11/05/17 Stop Date: 11/09/17 Status: Discontinued Results ELECTROLYTES 1 2 3 Most recent to oldest [Reference Range]: 141 mEq/L (11/14/17 7:05 AM) 138 mEq/L (11/13/17 4:24 AM) 140 mEq/L (11/12/17 8:26 AM) Sodium Lvl [135-145 mEq/L] 4.7 mEq/L (11/14/17 7:05 AM) 4.6 mEq/L (11/13/17 4:24 AM) 5.4 mEq/L *HI* (11/12/17 8:26 AM) Potassium Lvl [3.5-5.1 mEq/L] 106 mEq/L (11/14/17 7:05 AM) 103 mEq/L (11/13/17 4:24 AM) 102 mEq/L (11/12/17 8:26 AM) Chloride Lvl [95-109 mEq/L] 27 mEq/L (11/14/17 7:05 AM) 28 mEq/L (11/13/17 4:24 AM) 30 mEq/L (11/12/17 8:26 AM) CO2 [24-32 mEq/L] 12.7 mEq/L (11/14/17 7:05 AM) 11.6 mEq/L (11/13/17 4:24 AM) 13.4 mEq/L (11/12/17 8:26 AM) AGAP [10.0-20.0 mEq/L] CHEM PANEL 1 2 3 Most recent to oldest [Reference Range]: 0.93 mg/dL (11/14/17 7:05 AM) 1.10 mg/dL (11/13/17 4:24 AM) 1.07 mg/dL (11/12/17 8:26 AM) Creatinine Lvl [0.50-1.40 mg/dL] 86 mL/min/1.73m2 1 *NA* (11/14/17 7:05 AM) 70 mL/min/1.73m2 2 *NA* (11/13/17 4:24 AM) 72 mL/min/1.73m2 3 *NA* (11/12/17 8:26 AM) eGFR 12 mg/dL (11/14/17 7:05 AM) 13 mg/dL (11/13/17 4:24 AM) 12 mg/dL (11/12/17 8:26 AM) BUN [7-22 mg/dL] 27 *HI* (11/06/17 6:16 AM) 26 *HI* (11/04/17 6:36 PM) B/C Ratio [6-25] 118 mg/dL *HI* (11/14/17 7:05 AM) 138 mg/dL *HI* (11/13/17 4:24 AM) 172 mg/dL *HI* (11/12/17 8:26 AM) Glucose Lvl [70-99 mg/dL] 6.1 g/dL *LOW* (11/06/17 6:16 AM) 8.6 g/dL *HI* (11/04/17 6:36 PM) Total Protein [6.4-8.4 g/dL] 2.4 g/dL *LOW* (11/06/17 6:16 AM) 3.2 g/dL *LOW* (11/04/17 6:36 PM) Albumin Lvl [3.5-5.0 g/dL] 3.7 g/dL (11/06/17 6:16 AM) 5.4 g/dL *HI* (11/04/17 6:36 PM) Globulin [2.7-4.2 g/dL] 0.6 *LOW* (11/06/17 6:16 AM) 0.6 *LOW* (11/04/17 6:36 PM) A/G Ratio [0.7-1.6] 8.2 mg/dL *LOW* (11/14/17 7:05 AM) 8.7 mg/dL (11/13/17 4:24 AM) 8.5 mg/dL (11/12/17 8:26 AM) Calcium Lvl [8.5-10.5 mg/dL] 36 unit/L (11/06/17 6:16 AM) 34 unit/L (11/04/17 6:36 PM) ALT [0-65 unit/L] 49 unit/L *HI* (11/06/17 6:16 AM) 51 unit/L *HI* (11/04/17 6:36 PM) AST [0-37 unit/L] 90 unit/L (11/06/17 6:16 AM) 109 unit/L (11/04/17 6:36 PM) Alk Phos [39-136 unit/L] 0.3 mg/dL (11/06/17 6:16 AM) 0.4 mg/dL (11/04/17 6:36 PM) Bili Total [0.2-1.3 mg/dL] 1.4 mMol/L (11/05/17 3:08 AM) Lactic Acid Lvl [0.5-2.2 mMol/L] 1Result Comment: The eGFR is calculated using [...] from the National Kid[employer] Disease Education Program ( NKDEP) which additionally recommends that when the eGFR is used in patients with extremes of body mass index for purposes of drug dosing, the eGFR should be mul tiplied by the estimated BMI. 2Result Comment: The eGFR is calculated using the [...] from the National Kid[employer] Education Program ( NKDEP) which additionally recommends that when the eGFR is used in patients with extremes of body mass index for purposes of drug dosing, the eGFR should be mul tiplied by the estimated BMI. 3Result Comment: The eGFR is calculated using the [...] from the National Kid[employer] Disease Education Program ( NKDEP) which additionally recommends that when the eGFR is used in patients with extremes of body mass index for purposes of drug dosing, the eGFR should be mul tiplied by the estimated BMI. TOXICOLOGY 1 2 3 Most recent to oldest [Reference Range]: 0430 *NA* (11/07/17 4:14 AM) Vanco Tr TND 0630 *NA* (11/07/17 12:14 PM) Vanco Pk TLD 17.4 ug/ml *NA* (11/07/17 4:14 AM) Vanco Tr 19.8 ug/ml *NA* (11/07/17 12:14 PM) Vanco Pk ENDOCRINOLOGY 1 2 3 Most recent to oldest [Reference Range]: Negative *NA* (11/11/17 12:01 PM) S Preg [Negative] IMMUNOLOGY 1 2 3 Most recent to oldest [Reference Range]: 206.0 mg/L *HI* (11/04/17 6:36 PM) CRP [<=2.9 mg/L] HEMATOLOGY 1 2 3 Most recent to oldest [Reference Range]: 6.7 K/CMM (11/14/17 7:05 AM) 6.6 K/CMM (11/13/17 4:24 AM) 7.5 K/CMM (11/11/17 12:01 PM) WBC [3.7-10.4 K/CMM] 2.86 M/CMM *LOW* (11/14/17 7:05 AM) 2.90 M/CMM *LOW* (11/13/17 4:24 AM) 3.00 M/CMM *LOW* (11/11/17 12:01 PM) RBC [4.70-6.10 M/CMM] 8.6 g/dL *LOW* (11/14/17 7:05 AM) 8.7 g/dL *LOW* (11/13/17 4:24 AM) 8.8 g/dL *LOW* (11/11/17 12:01 PM) Hgb [14.0-18.0 g/dL] 25.2 % *LOW* (11/14/17 7:05 AM) 25.5 % *LOW* (11/13/17 4:24 AM) 26.4 % *LOW* (11/11/17 12:01 PM) Hct [42.0-54.0 %] 88.3 fL (11/14/17 7:05 AM) 87.8 fL (11/13/17 4:24 AM) 88.0 fL (11/11/17 12:01 PM) MCV [80.0-94.0 fL] 30.1 pg (11/14/17 7:05 AM) 29.9 pg (11/13/17 4:24 AM) 29.3 pg (11/11/17 12:01 PM) MCH [27.0-31.0 pg] 34.1 g/dL (11/14/17 7:05 AM) 34.1 g/dL (11/13/17 4:24 AM) 33.2 g/dL (11/11/17 12:01 PM) MCHC [32.0-36.0 g/dL] 13.7 % (11/14/17 7:05 AM) 13.5 % (11/13/17 4:24 AM) 13.4 % (11/11/17 12:01 PM) RDW [11.5-14.5 %] 7.6 fL (11/14/17 7:05 AM) 7.6 fL (11/13/17 4:24 AM) 7.5 fL (11/11/17 12:01 PM) MPV [7.4-10.4 fL] 355 K/CMM (11/14/17 7:05 AM) 315 K/CMM (11/13/17 4:24 AM) 252 K/CMM (11/11/17 12:01 PM) Platelet [133-450 K/CMM] 69.7 % (11/14/17 7:05 AM) 64.4 % (11/13/17 4:24 AM) 73.2 % (11/11/17 12:01 PM) Segs [45.0-75.0 %] 15.6 % *LOW* (11/14/17 7:05 AM) 18.3 % *LOW* (11/13/17 4:24 AM) 13.4 % *LOW* (11/11/17 12:01 PM) Lymphocytes [20.0-40.0 %] 9.5 % (11/14/17 7:05 AM) 11.9 % (11/13/17 4:24 AM) 8.6 % (11/11/17 12:01 PM) Monocytes [2.0-12.0 %] 4.7 % *HI* (11/14/17 7:05 AM) 5.0 % *HI* (11/13/17 4:24 AM) 4.0 % (11/11/17 12:01 PM) Eosinophils [0.0-4.0 %] 0.5 % (11/14/17 7:05 AM) 0.4 % (11/13/17 4:24 AM) 0.8 % (11/11/17 12:01 PM) Basophils [0.0-1.0 %] 4.7 K/CMM (11/14/17 7:05 AM) 4.3 K/CMM (11/13/17 4:24 AM) 5.5 K/CMM (11/11/17 12:01 PM) Segs-Bands # [1.5-8.1 K/CMM] 1.0 K/CMM (11/14/17 7:05 AM) 1.2 K/CMM (11/13/17 4:24 AM) 1.0 K/CMM (11/11/17 12:01 PM) Lymphocytes # [1.0-5.5 K/CMM] 0.6 K/CMM (11/14/17 7:05 AM) 0.8 K/CMM (11/13/17 4:24 AM) 0.6 K/CMM (11/11/17 12:01 PM) Monocytes # [0.0-0.8 K/CMM] 0.3 K/CMM (11/14/17 7:05 AM) 0.3 K/CMM (11/13/17 4:24 AM) 0.3 K/CMM (11/11/17 12:01 PM) Eosinophils # [0.0-0.5 K/CMM] 0.1 K/CMM (11/11/17 12:01 PM) Basophils # [0.0-0.2 K/CMM] >100 mm/hr *HI* (11/04/17 6:36 PM) Sed Rate [0-15 mm/hr] 15.2 seconds *HI* (11/11/17 12:01 PM) 15.6 seconds *HI* (11/06/17 6:16 AM) PT [12.0-14.7 seconds] 1.19 *HI* (11/11/17 12:01 PM) 1.23 *HI* (11/06/17 6:16 AM) INR [0.85-1.17] 31.9 seconds (11/11/17 12:01 PM) 45.8 seconds *HI* (11/06/17 6:16 AM) PTT [22.9-35.8 seconds] Immunizations Given and Recorded Vaccine Date Status Refusal Reason influenza virus vaccine, inactivated 11/08/17 Given Not Given Vaccine Date Status Refusal Reason pneumococcal 13-valent vaccine1 11/09/17 Not Given Patient Refuses 1Result Comment: pt said he wants to think about it some more Procedures Procedure Date Related Diagnosis Body Site Status Hip replacement1 Completed Implantation of penile prosthesis Completed Implantation of penile prosthesis Completed Manipulation of deviated nasal septum Completed Tonsillectomy Completed 1right hip Social History Social History Type Response Alcohol Current, Frequency: 1-2 times per year. Smoking Status Never smoker; Previous treatment: None; Concerns about tobacco use in household: No; Exposure to Tobacco Smoke None; Cigarette Smoking Last 365 Days No; Reg Smoking Cessation Counseling No entered on: 11/05/17 Assessment and Plan Extracted from: Title: Clinical Document Author: Lianna Butler MD Date: 11/14/17 Discharge Summary [facility] Lianna Butler MD Discharge Diagnosis: Sepsis with high fever and hypotension Infected diabetic foot ulcer Diabetes mellitus type 2 Hypertension Hyperlipidemia Chronic pain syndrome Recent hip replacement on the right Brief Hospital Course: 67-year-old white male who has history of diabetes mellitus, history of osteomyelitis, history of chronic pain, history of penile prosthesis, history of deviated nasal septum before, right hip surgery. The patient comes in to the hospital with left foot pain and swelling. He stated having problem with his foot since March. He is coming now with left foot infection has been seen by podiatry as an outpatient and been taking several courses of oral antibiotic on and off without any improvement. the pt had debridement to the bone by podiatry. Wound vac placed initially. Seen by vascular surgery. s/p angio with run off and CLAIMS SPECIALIST to left PT. PICC placed. Ok to dc home with home health Discharge home See Med reconciliation form F/U with PCP in 2 weeks, medical specialists as necessary Diet: cont same diet Activity as gerald VitalsTmp(F)[id number] 11/14 [id number]--- 11/14 08:[id number]--- 11/14 04:[id number]--- 11/13 21:[id number]--- 11/13 19:[id number]--- 24 Hr Tmax: 99F (37.22c) at 11/14 12:03Vital Signs are the last 5 in the past 48 hours. Labs (Last four charted values) WBC 6.7(NOV 14)6.6(NOV 13)7.5(NOV 11)6.8(NOV 10) Hgb L 8.6(NOV 14)L 8.7(NOV 13)L 8.8(NOV 11)L 8.0(NOV 10) Hct L 25.2(NOV 14)L 25.5(NOV 13)L 26.4(NOV 11)L 23.3(NOV 10) Plt 355(NOV 14)315(NOV 13)252(NOV 11)202(NOV 10) Na 141(NOV 14)138(NOV 13)140(NOV 12)139(NOV 10) K 4.7(NOV 14)4.6(NOV 13)H 5.4(NOV 12)4.6(NOV 10) CO2 27(NOV 14)28(NOV 13)30(NOV 12)25(NOV 10) Cl 106(NOV 14)103(NOV 13)102(NOV 12)105(NOV 10) Cr 0.93(NOV 14)1.10(NOV 13)1.07(NOV 12)1.04(NOV 10) BUN 12(NOV 14)13(NOV 13)12(NOV 12)12(NOV 10) Glucose Random H 118(NOV 14)H 138(NOV 13)H 172(NOV 12)H 179(NOV 11) Ca L 8.2(NOV 14)8.7(NOV 13)8.5(NOV 12)8.5(NOV 10) PT H 15.2(NOV 11)H 15.6(NOV 06) INR H 1.19(NOV 11)H 1.23(NOV 06) PTT 31.9(NOV 11)H 45.8(NOV 06)Medications (30) Active Scheduled: (13) cefTRIAXone 2 gm INJ VL + water for injection, sterile 20 mL 2 gm, IVPB, [id number] cetirizine 5 mg TAB 10 mg 2 tab, PO, Bedtime cholecalciferol 1000 intl unit tab (vitamin D3) 2,000 IntlUnit 2 tab, PO, BID clopidogrel 75 mg TAB 75 mg 1 tab, PO, Daily collagenase topical 250 unit/gm top OIN 30 gm 1 appl, TOP, Daily docusate sodium 100 mg CAP 400 mg 4 cap, PO, BID enalapril 2.5 mg TAB 2.5 mg 1 tab, PO, Bedtime enoxaparin 40 mg/0.4 ml INJ 40 mg 0.4 mL, SUB-Q, [id number] glipiZIDE 5 mg TAB 5 mg 1 tab, PO, BID insulin GLARGINE 1 unit/0.01 mL INJ SYR 20 unit 0.2 mL, SUB-Q, Bedtime magnesium oxide 250 mg TAB 250 mg 1 tab, PO, Bedtime nebivolol 10mg tablet 10 mg 1 tab, PO, Daily oxymetazoline 0.05% 15ml nasal SPR 1 spray, NASAL, BID Continuous: (1) sodium chloride 0.9% 1000 ml INJ 1,000 mL 1,000 mL, IV, 100 ml/hr PRN: (16) acetaminophen 325 mg TABLET 325 mg 1 tab, PO, Q4H acetaminophen-hydrocodone 325 mg-10 mg TAB 1 tab, PO, Q6H cyclobenzaprine 10 mg TAB 10 mg 1 tab, PO, TID Dextrose 50% 50 ml INJ syringe 12.5 gm 25 mL, IVP, PRN Dextrose 50% 50 ml INJ syringe 25 gm 50 mL, IVP, PRN glucagon recombinant 1 mg PDR 1 mg, IM, PRN insulin lispro 100 unit/ml 3 ml Pen 3 unit 0.03 mL, SUB-Q, TID-Before Meals insulin lispro 100 unit/ml 3 ml Pen 6 unit 0.06 mL, SUB-Q, TID-Before Meals insulin lispro 100 unit/ml 3 ml Pen 9 unit 0.09 mL, SUB-Q, TID-Before Meals insulin lispro 100 unit/ml 3 ml Pen 12 unit 0.12 mL, SUB-Q, TID-Before Meals insulin lispro 100 unit/ml 3 ml Pen 15 unit 0.15 mL, SUB-Q, TID-Before Meals insulin lispro 100 unit/ml 3 ml Pen 1 unit 0.01 mL, SUB-Q, Bedtime insulin lispro 100 unit/ml 3 ml Pen 2 unit 0.02 mL, SUB-Q, Bedtime insulin lispro 100 unit/ml 3 ml Pen 3 unit 0.03 mL, SUB-Q, Bedtime insulin lispro 100 unit/ml 3 ml Pen 4 unit 0.04 mL, SUB-Q, Bedtime MORPhine sulfate PF 2 mg/ml CARP 2 mg 1 mL, IV, Daily Medications (30) Active Scheduled Meds (13): 11/09/17 cefTRIAXone + sterile water 20 mL (Rocephin + sterile water 20 mL) 2 gm IVPB [id number] 240 ml/hr 11/05/17 cetirizine 10 mg PO Bedtime 11/05/17 cholecalciferol (Vitamin D3 2000 intl units oral tablet) 2,000 IntlUnit PO BID 11/13/17 clopidogrel (Plavix) 75 mg PO Daily 11/13/17 collagenase topical (Santyl) 1 appl TOP Daily 11/05/17 docusate (Colace 100 mg oral capsule) 400 mg PO BID 11/05/17 enalapril 2.5 mg PO Bedtime 11/05/17 enoxaparin (Lovenox) 40 mg [id number] 11/13/17 glipiZIDE 5 mg PO BID 11/05/17 insulin glargine (Lantus 100 units/mL) 20 unit SUB-Q Bedtime 0 ml/hr 11/05/17 magnesium oxide 250 mg PO Bedtime 11/05/17 nebivolol (Bystolic) 10 mg PO Daily 11/05/17 oxymetazoline nasal (Afrin Extra Moisturizing) 1 spray NASAL BID Unscheduled Meds: None PRN Meds (16): 11/13/17 Dextrose 50% in Water IV (Dextrose 50% Syringe) 12.5 gm IVP PRN 11/13/17 Dextrose 50% in Water IV (Dextrose 50% Syringe) 25 gm IVP PRN 11/05/17 acetaminophen-hydrocodone (Nemours 10/325 oral tablet) 1 tab PO Q6H 11/05/17 acetaminophen 325 mg PO Q4H 11/05/17 cyclobenzaprine 10 mg PO TID 11/13/17 glucagon 1 mg IM PRN 11/13/17 insulin lispro 3 unit SUB-Q TID-Before Meals 11/13/17 insulin lispro 6 unit SUB-Q TID-Before Meals 11/13/17 insulin lispro 9 unit SUB-Q TID-Before Meals 11/13/17 insulin lispro 12 unit SUB-Q TID-Before Meals 11/13/17 insulin lispro 15 unit SUB-Q TID-Before Meals 11/13/17 insulin lispro 1 unit SUB-Q Bedtime 11/13/17 insulin lispro 2 unit SUB-Q Bedtime 11/13/17 insulin lispro 3 unit SUB-Q Bedtime 11/13/17 insulin lispro 4 unit SUB-Q Bedtime 11/12/17 morphine Sulfate 2 mg IV Daily One Time Meds: None Continuous Infusions (1): 11/12/17 Sodium Chloride 0.9% IV 1,000 mL (normal saline 0.9% IV 1,000 mL) 1,000 mL 100 ml/hr Extracted from: Title: Clinical Document Author: Sue Cazares MD Date: 11/13/17 Ifectious Disease Progress Note [facility] Dr. Sue Cazares SUBJECTIVE Events reviewed. Patient seen and examined labs and medications reviewed . OBJECTIVE doing well Vitals and Temp: VitalsTmp(F)[id number] 11/13 08:[id number]--- 11/13 04:1598.004947/73--98--- 11/13 00:4398.400678/74--99--- 11/12 20:0798.608241/70--97--- 11/12 16:44----98076/82-------- 24 Hr Tmax: 99F (37.22c) at 11/13 08:05Vital Signs are the last 5 in the past 48 hours. Input/Output RecordInOutBal 10/1823hr Tot 500 0 500 1724hr Tot 1785 1120 665 Physical Exam Gen: alert, no acute distress, follow command HEENT: not pale, not icteric, normal cephalic, Neck: Supple, no jvd, CV: S1, S2, no murmurs Lung: clear bilateral course BS Abd: soft, bowel sound normal, no tenderness Ext: no edema Skin: no rash Neuro: no seizure, no local finding Concerned there is an area of necrotic tissue in between the toes will contact fret saw operator Labs (Last four charted values) WBC 6.6(NOV 13)7.5(NOV 11)6.8(NOV 10)7.1(NOV 06) Hgb L 8.7(NOV 13)L 8.8(NOV 11)L 8.0(NOV 10)L 8.8(NOV 06) Hct L 25.5(NOV 13)L 26.4(NOV 11)L 23.3(NOV 10)L 25.7(NOV 06) Plt 315(NOV 13)252(NOV 11)202(NOV 10)194(NOV 06) Na 138(NOV 13)140(NOV 12)139(NOV 10)140(NOV 09) K 4.6(NOV 13)H 5.4(NOV 12)4.6(NOV 10)4.7(NOV 09) CO2 28(NOV 13)30(NOV 12)25(NOV 10)25(NOV 09) Cl 103(NOV 13)102(NOV 12)105(NOV 10)108(NOV 09) Cr 1.10(NOV 13)1.07(NOV 12)1.04(NOV 10)1.34(NOV 09) BUN 13(NOV 13)12(NOV 12)12(NOV 10)18(NOV 09) Glucose Random H 138(NOV 13)H 172(NOV 12)H 179(NOV 11)H 131(NOV 10) Ca 8.7(NOV 13)8.5(NOV 12)8.5(NOV 10)L 8.4(NOV 09) PT H 15.2(NOV 11)H 15.6(NOV 06) INR H 1.19(NOV 11)H 1.23(NOV 06) PTT 31.9(NOV 11)H 45.8(NOV 06) Medications Scheduled Meds (16):calcium-vitamin D (calcium-vitamin D 185 mg-1000U), cefTRIAXone + sterile water 20 mL (Rocephin + sterile water 20 mL), cetirizine, cholecalciferol (Vitamin D3 2000 intl units oral tablet), clopidogrel (Plavix), collagenase topical (Santyl), cyanocobalamin, docusate (Colace 100 mg oral capsule), enalapril, enoxaparin (Lovenox), insulin glargine (Lantus 100 units/mL), magnesium oxide, nebivolol (Bystolic), oxymetazoline nasal (Afrin Extra Moisturizing), potassium gluconate, thiamine (Vitamin B1) Unscheduled Meds: None PRN Meds (16):Dextrose 50% in Water IV (Dextrose 50% Syringe), Dextrose 50% in Water IV (Dextrose 50% Syringe), acetaminophen-hydrocodone (Nemours 10/325 oral tablet), acetaminophen, cyclobenzaprine, glucagon, insulin lispro, insulin lispro, insulin lispro, insulin lispro, insulin lispro, insulin lispro, insulin lispro, insulin lispro, insulin lispro, morphine Sulfate One Time Meds (7):(Completed) Insulin regular, (Discontinued) albuterol- ipratropium (albuterol-ipratropium 2.5-0.5 mg inhalation solution), (Completed) ceFAZolin (ceFAZolin (ANES)), (Completed) cefTRIAXone (cefTRIAXone (ANES)), (Completed) fentaNYL (fentaNYL (ANES)), (Completed) heparin (heparin (ANES)), (Completed) midazolam (midazolam (ANES)) Continuous Infusions (1):Sodium Chloride 0.9% IV 1,000 mL (normal saline 0.9% IV 1,000 mL) ALL LABS REVIEW AND ALL RADIOLOGY REPORTS REVIEWED IMPRESSION abcsess foot pvd dm neuropathy Concerned about necrotic tissue he may need debridement and may be transmetatarsal amputation because discussed with the fret saw operator PLAN
--- OUTSIDE RECORDS SUMMARY | 2018-08-20 05:35 | XMS REPORT | Summary of Care ---
Author Author [facility] Organization [facility] Address Unknown Phone Unavailable Encounter ERIKA Woodruff(MICHEAL) [id number] Date(s): 05/24/15 - 05/31/15 [facility] [address] [place] [address]- Discharge Disposition: Home Attending Physician: Charbel Mehta DO Admitting Physician: Charbel Mehta DO Vital Signs 1 2 3 Most recent to oldest [Reference Range]: 180.34 cm (05/24/15 4:05 PM) 180.34 cm (05/24/15 10:30 AM) Height 1 2 3 Most recent to oldest [Reference Range]: 98.3 DegF (05/31/15 3:00 PM) 98.2 DegF (05/31/15 11:00 AM) 98.0 DegF (05/31/15 7:00 AM) Temperature Oral [96.4-99.1 DegF] 1 2 3 Most recent to oldest [Reference Range]: 134/74 mmHg (05/31/15 3:00 PM) 138/80 mmHg (05/31/15 11:00 AM) 132/78 mmHg (05/31/15 7:00 AM) Blood Pressure [90-140/60-90 mmHg] 1 2 3 Most recent to oldest [Reference Range]: 16 BRMIN (05/31/15 3:00 PM) 16 BRMIN (05/31/15 11:00 AM) 16 BRMIN (05/31/15 7:00 AM) Respiratory Rate [14-20 BRMIN] 1 2 3 Most recent to oldest [Reference Range]: 87 bpm (05/31/15 3:00 PM) 82 bpm (05/31/15 11:00 AM) 78 bpm (05/31/15 7:00 AM) Peripheral Pulse Rate [60-100 bpm] 1 2 3 Most recent to oldest [Reference Range]: 94.205 kg (05/24/15 4:05 PM) 92.273 kg (05/24/15 10:30 AM) Weight 1 2 3 Most recent to oldest [Reference Range]: 28.97 m2 (05/24/15 4:05 PM) 28.37 m2 (05/24/15 10:30 AM) Body Mass Index Problem List Condition Effective Dates Status Health Status Informant Diabetes Resolved mellitus(Confirmed) HTN Resolved (hypertension)(Confi rmed) Toe Resolved infection(Confirmed) Allergies, Adverse Reactions, Alerts Substance Reaction Severity Status NKDA Active Medications Afrin Extra Moisturizing 1 spray, NASAL, BID, 0 Refill(s) Start Date: 05/24/15 Status: Ordered Ancef 2 gm, 100 mL, Route: IVPB, Drug form: INJ, ONCE, Dosing Weight 94.205, kg, Start date: 05/29/15 14:11:00, Duration: 1 doses or times, Stop date: 05/29/15 14:11: 00 Notes: Same as: Ancef Start Date: 05/29/15 Stop Date: 05/29/15 Status: Completed atenolol See Instructions, PO Daily, 0 Refill(s) Special Instructions: PO Daily Start Date: 05/24/15 Stop Date: 05/24/15 Status: Deleted atenolol 25 mg oral tablet 25 mg=1 tab, PO, Bedtime, 0 Refill(s) Start Date: 05/24/15 Status: Ordered atenolol 25 mg oral tablet 25 mg, 1 tab, Route: PO, Drug form: TAB, Bedtime, Dosing Weight 94.205, kg, Star t date: 05/25/15 21:00:00, Duration: 30 day, Stop date: 06/23/15 21:00:00 Notes: (Same As:Tenormin) Start Date: 05/25/15 Stop Date: 05/31/15 Status: Discontinued B-12 5,000 microgram, PO, Daily, 0 Refill(s) Start Date: 05/24/15 Status: Ordered calcium gluconate See Instructions, 2 tabs at Night, 0 Refill(s) Special Instructions: 2 tabs at Night Start Date: 05/24/15 Stop Date: 05/24/15 Status: Deleted calcium-vitamin D 185 mg-1000U 1 tab, PO, BID, # 100 tab, 0 Refill(s) Start Date: 05/24/15 Status: Ordered cefepime + Sodium Chloride 0.9% IV 100 mL 1 gm, Route: IVPB, [id number]-[id number], Dosing Weight 94.205, kg, (CrCl >/=50 ml/min), Start date: 05/26/15 13:00:00, Duration: 30 day, Stop date: 06/25/15 5:00:00 Notes: (Same As: Maxipime) MEDICATION WASTE Product Size: 1000 mgProduc t Wasted: ___ mg Start Date: 05/26/15 Stop Date: 05/31/15 Status: Discontinued cetirizine 10 mg oral capsule 10 mg=1 cap, PO, Daily, 0 Refill(s) Start Date: 05/24/15 Status: Ordered cinnamon cinnamon, 2,000 mg=, PO, BID, Refill(s) 0 Start Date: 05/24/15 Status: Ordered Cipro 400 mg, Route: IVPB, ONCE, Dosing Weight 92.273, kg, Priority: STAT, Start date: 05/24/15 11:13:00, Stop date: 05/24/15 11:13:00 Start Date: 05/24/15 Stop Date: 05/24/15 Status: Completed Cipro 400 mg, 200 mL, Route: IVPB, Drug form: INJ, [id number], Dosing Weight 92.273, kg, Start date: 05/25/15 3:00:00, Duration: 30 day, Stop date: 06/23/15 15:00:00 Notes: Do not refrigerate Start Date: 05/25/15 Stop Date: 05/24/15 Status: Canceled Cipro 400 mg, 200 mL, Route: IVPB, Drug form: INJ, [id number], Dosing Weight 92.273, kg, Priority: STAT, Start date: 05/24/15 14:48:00, Duration: 30 day, Stop date: 05/28 06/10 10:00:00 Notes: Do not refrigerate Start Date: 05/24/15 Stop Date: 05/24/15 Status: Deleted clindamycin + Sodium Chloride 0.9% IV 50 mL 900 mg, 6 mL, Route: IVPB, [id number], Dosing Weight 92.273, kg, Start date: 5 17:00:00, Duration: 30 day, Stop date: 06/23/15 9:00:00 Notes: (Same As: Cleocin) Start Date: 05/24/15 Stop Date: 05/26/15 Status: Discontinued Colace 100 mg oral capsule 400 mg=4 cap, PO, BID, 0 Refill(s) Start Date: 05/24/15 Status: Ordered Colace 100 mg oral capsule 400 mg, 4 cap, Route: PO, Drug form: CAP, BID, Dosing Weight 94.205, kg, Start d ate: 05/25/15 18:03:00, Duration: 30 day, Stop date: 06/24/15 17:00:00 Notes: (Same as: Colace) (Do Not Crush) Start Date: 05/25/15 Stop Date: 05/31/15 Status: Discontinued cyclobenzaprine 5 mg, 0.5 tab, Route: PO, Drug form: TAB, BID, Dosing Weight 94.205, kg, Start d ate: 05/25/15 17:00:00, Duration: 30 day, Stop date: 06/24/15 9:00:00 Notes: (Same As: Flexeril) Start Date: 05/25/15 Stop Date: 05/31/15 Status: Discontinued cyclobenzaprine 5 mg oral tablet 5 mg=1 tab, PO, BID, 0 Refill(s) Start Date: 05/24/15 Status: Ordered D5W 1,000 mL 1,000 mL, Rate: 75 ml/hr, Infuse over: 13.3 hr, Route: IV, Dosing Weight 94.205 kg, Total Volume: 1,000, Start date: 05/28/15 19:47:00, Duration: 30 day, Stop d ate: 06/27/15 19:46:00 Start Date: 05/28/15 Stop Date: 05/30/15 Status: Discontinued Dextrose 50% Syringe 25 gm, 50 mL, Route: IVP, Drug Form: INJ, Dosing Weight 92.273, kg, PRN, PRN Blo od Glucose Results, Start date: 05/24/15 14:50:00, Duration: 30 day, Stop date: 06/23/15 14:49:00 Start Date: 05/24/15 Stop Date: 05/24/15 Status: Discontinued Dextrose 50% Syringe 12.5 gm, 25 mL, Route: IVP, Drug Form: INJ, Dosing Weight 92.273, kg, PRN, PRN B lood Glucose Results, Start date: 05/24/15 14:50:00, Duration: 30 day, Stop date : 06/23/15 14:49:00 Start Date: 05/24/15 Stop Date: 05/24/15 Status: Discontinued Dextrose 50% Syringe 25 gm, 50 mL, Route: IVP, Drug Form: INJ, Dosing Weight 92.273, kg, PRN, PRN Blo od Glucose Results, Start date: 05/24/15 15:00:00, Duration: 30 day, Stop date: 06/23/15 14:59:00 Start Date: 05/24/15 Stop Date: 05/31/15 Status: Discontinued Dextrose 50% Syringe 12.5 gm, 25 mL, Route: IVP, Drug Form: INJ, Dosing Weight 92.273, kg, PRN, PRN B lood Glucose Results, Start date: 05/24/15 15:00:00, Duration: 30 day, Stop date : 06/23/15 14:59:00 Start Date: 05/24/15 Stop Date: 05/31/15 Status: Discontinued enalapril 2.5 mg, PO, Bedtime, 0 Refill(s) Start Date: 05/24/15 Status: Ordered enalapril See Instructions, 0 Refill(s) Start Date: 05/24/15 Stop Date: 05/24/15 Status: Deleted enalapril 2.5 mg, 1 tab, Route: PO, Drug form: TAB, Bedtime, Dosing Weight 94.205, kg, Sta rt date: 05/25/15 21:00:00, Duration: 30 day, Stop date: 06/23/15 21:00:00 Notes: (Same as: Vasotec) Start Date: 05/25/15 Stop Date: 05/31/15 Status: Discontinued enoxaparin 40 mg, 0.4 mL, Route: SUB-Q, Drug form: INJ, [id number], Dosing Weight 92.273, kg, Start date: 05/24/15 16:00:00, Duration: 30 day, Stop date: 06/22/15 16:00:00 Notes: (Same as: Lovenox) Start Date: 05/24/15 Stop Date: 05/31/15 Status: Discontinued Flax Oil BID, 2 pills in AM and 2 pills in PM, 0 Refill(s) Special Instructions: 2 pills in AM and 2 pills in PM Start Date: 05/24/15 Stop Date: 05/24/15 Status: Deleted Flax Oil oral capsule 1,200 mg=, PO, BID, 0 Refill(s) Start Date: 05/24/15 Status: Ordered gentamicin topical 0.1% cream 1 appl, TOP, Daily, # 15 gm, 0 Refill(s) Start Date: 05/31/15 Stop Date: 06/01/15 Status: Completed gentamicin topical 0.1% cream 1 appl, Route: TOP, Daily, Drug form: CRM, Start date: 05/31/15 9:00:00, Duratio n: 30 day, Stop date: 06/29/15 9:00:00 Notes: (Same as: Garamycin) Start Date: 05/31/15 Stop Date: 05/31/15 Status: Discontinued Gingko Biloba BID, 0 Refill(s) Start Date: 05/24/15 Stop Date: 05/24/15 Status: Deleted Ginkgo Biloba 500 mg, PO, BID, 0 Refill(s) Start Date: 05/24/15 Status: Ordered glipiZIDE-metformin 5 mg-500 mg oral tablet 2 tab, PO, BID, 0 Refill(s) Start Date: 05/24/15 Status: Ordered glipiZIDE-metformin 5 mg-500 mg oral tablet 2 tab, Route: PO, Drug Form: TAB, Dosing Weight 94.205, kg, BID, Start date: 17:00:00, Duration: 30 day, Stop date: 06/24/15 9:00:00 Start Date: 05/25/15 Stop Date: 05/25/15 Status: Deleted glipiZIDE-metformin 5 mg-500 mg oral tablet 2 tab, PO, BID-Meals, # 60 tab, 0 Refill(s) Start Date: 05/24/15 Stop Date: 05/24/15 Status: Deleted glucagon 1 mg, Route: IM, Drug form: PDR/INJ, PRN, Dosing Weight 92.273, kg, PRN Blood Gl ucose Results, Priority: STAT, Start date: 05/24/15 14:50:00, Duration: 30 day, Stop date: 06/23/15 14:49:00 Start Date: 05/24/15 Stop Date: 05/24/15 Status: Discontinued glucagon 1 mg, Route: IM, Drug form: PDR/INJ, PRN, Dosing Weight 92.273, kg, PRN Blood Gl ucose Results, Start date: 05/24/15 15:00:00, Duration: 30 day, Stop date: 06/23 14:59:00 Start Date: 05/24/15 Stop Date: 05/31/15 Status: Discontinued Glucophage 1,000 mg, 2 tab, Route: PO, Drug form: TAB, BID-Meals, Start date: 05/25/15 17:0 0:00, Duration: 30 day, Stop date: 06/24/15 8:00:00 Notes: (Same as: Glucophage) Take with meal Start Date: 05/25/15 Stop Date: 05/31/15 Status: Discontinued Glucotrol 5 mg, 1 tab, Route: PO, Drug form: TAB, Daily, Start date: 05/27/15 9:00:00, Dur ation: 30 day, Stop date: 06/25/15 9:00:00 Notes: (Same as: Glucotrol) 30 min before meals. Start Date: 05/27/15 Stop Date: 05/31/15 Status: Discontinued Glucotrol 10 mg, 2 tab, Route: PO, Drug form: TAB, BID-Before Meals, Start date: 05/25/15 16:30:00, Duration: 30 day, Stop date: 06/24/15 7:30:00 Start Date: 05/25/15 Stop Date: 05/26/15 Status: Discontinued insulin aspart 5 unit, 0.05 mL, Route: SUB-Q, Drug form: SOLN, Sliding Scale, Dosing Weight 92. 273, kg, PRN Blood Glucose Results, Start date: 05/24/15 14:50:00, Duration: 30 day, Stop date: 06/23/15 14:49:00 Notes: Roll in palms of hands gently; Do not shake vigorously. (Same as: NovoLO G)"single patient use only" Stable for 28 days at room temperature.Expires in _ ____ days from Date Start Date: 05/24/15 Stop Date: 05/24/15 Status: Discontinued insulin aspart 4 unit, 0.04 mL, Route: SUB-Q, Drug form: SOLN, Sliding Scale, Dosing Weight 92. 273, kg, PRN Blood Glucose Results, Start date: 05/24/15 14:50:00, Duration: 30 day, Stop date: 06/23/15 14:49:00 Notes: Roll in palms of hands gently; Do not shake vigorously. (Same as: NovoLO G)"single patient use only" Stable for 28 days at room temperature.Expires in _ ____ days from Date Start Date: 05/24/15 Stop Date: 05/24/15 Status: Discontinued insulin aspart 3 unit, 0.03 mL, Route: SUB-Q, Drug form: SOLN, Sliding Scale, Dosing Weight 92. 273, kg, PRN Blood Glucose Results, Start date: 05/24/15 14:50:00, Duration: 30 day, Stop date: 06/23/15 14:49:00 Notes: Roll in palms of hands gently; Do not shake vigorously. (Same as: NovoLO G)"single patient use only" Stable for 28 days at room temperature.Expires in _ ____ days from Date Start Date: 05/24/15 Stop Date: 05/24/15 Status: Discontinued insulin aspart 2 unit, 0.02 mL, Route: SUB-Q, Drug form: SOLN, Sliding Scale, Dosing Weight 92. 273, kg, PRN Blood Glucose Results, Start date: 05/24/15 14:50:00, Duration: 30 day, Stop date: 06/23/15 14:49:00 Notes: Roll in palms of hands gently; Do not shake vigorously. (Same as: NovoLO G)"single patient use only" Stable for 28 days at room temperature.Expires in _ ____ days from Date Start Date: 05/24/15 Stop Date: 05/24/15 Status: Discontinued insulin aspart 1 unit, 0.01 mL, Route: SUB-Q, Drug form: SOLN, Sliding Scale, Dosing Weight 92. 273, kg, PRN Blood Glucose Results, Start date: 05/24/15 14:50:00, Duration: 30 day, Stop date: 06/23/15 14:49:00 Notes: Roll in palms of hands gently; Do not shake vigorously. (Same as: NovoLO G)"single patient use only" Stable for 28 days at room temperature.Expires in _ ____ days from Date Start Date: 05/24/15 Stop Date: 05/24/15 Status: Discontinued insulin aspart 4 unit, 0.04 mL, Route: SUB-Q, Drug form: SOLN, Bedtime, Dosing Weight 92.273, k g, PRN Blood Glucose Results, Start date: 05/24/15 15:00:00, Duration: 30 day, S top date: 06/23/15 14:59:00 Notes: Roll in palms of hands gently; Do not shake vigorously. (Same as: NovoLO G)"single patient use only" Stable for 28 days at room temperature.Expires in _ ____ days from Date Start Date: 05/24/15 Stop Date: 05/31/15 Status: Discontinued insulin aspart 2 unit, 0.02 mL, Route: SUB-Q, Drug form: SOLN, Bedtime, Dosing Weight 92.273, k g, PRN Blood Glucose Results, Start date: 05/24/15 15:00:00, Duration: 30 day, S top date: 06/23/15 14:59:00 Notes: Roll in palms of hands gently; Do not shake vigorously. (Same as: NovoLO G)"single patient use only" Stable for 28 days at room temperature.Expires in _ ____ days from Date Start Date: 05/24/15 Stop Date: 05/31/15 Status: Discontinued insulin aspart 1 unit, 0.01 mL, Route: SUB-Q, Drug form: SOLN, Bedtime, Dosing Weight 92.273, k g, PRN Blood Glucose Results, Start date: 05/24/15 15:00:00, Duration: 30 day, S top date: 06/23/15 14:59:00 Notes: Roll in palms of hands gently; Do not shake vigorously. (Same as: NovoLO G)"single patient use only" Stable for 28 days at room temperature.Expires in _ ____ days from Date Start Date: 05/24/15 Stop Date: 05/31/15 Status: Discontinued insulin aspart 3 unit, 0.03 mL, Route: SUB-Q, Drug form: SOLN, Bedtime, Dosing Weight 92.273, k g, PRN Blood Glucose Results, Start date: 05/24/15 15:00:00, Duration: 30 day, S top date: 06/23/15 14:59:00 Notes: Roll in palms of hands gently; Do not shake vigorously. (Same as: NovoLO G)"single patient use only" Stable for 28 days at room temperature.Expires in _ ____ days from Date Start Date: 05/24/15 Stop Date: 05/31/15 Status: Discontinued insulin aspart 2 unit, 0.02 mL, Route: SUB-Q, Drug form: SOLN, TID-Before Meals, Dosing Weight 92.273, kg, PRN Blood Glucose Results, Start date: 05/24/15 15:00:00, Duration: 30 day, Stop date: 06/23/15 14:59:00 Notes: Roll in palms of hands gently; Do not shake vigorously. (Same as: NovoLO G)"single patient use only" Stable for 28 days at room temperature.Expires in _ ____ days from Date Start Date: 05/24/15 Stop Date: 05/31/15 Status: Discontinued insulin aspart 6 unit, 0.06 mL, Route: SUB-Q, Drug form: SOLN, TID-Before Meals, Dosing Weight 92.273, kg, PRN Blood Glucose Results, Start date: 05/24/15 15:00:00, Duration: 30 day, Stop date: 06/23/15 14:59:00 Notes: Roll in palms of hands gently; Do not shake vigorously. (Same as: NovoLO G)"single patient use only" Stable for 28 days at room temperature.Expires in _ ____ days from Date Start Date: 05/24/15 Stop Date: 05/31/15 Status: Discontinued insulin aspart 10 unit, 0.1 mL, Route: SUB-Q, Drug form: SOLN, TID-Before Meals, Dosing Weight 92.273, kg, PRN Blood Glucose Results, Start date: 05/24/15 15:00:00, Duration: 30 day, Stop date: 06/23/15 14:59:00 Notes: Roll in palms of hands gently; Do not shake vigorously. (Same as: NovoLO G)"single patient use only" Stable for 28 days at room temperature.Expires in _ ____ days from Date Start Date: 05/24/15 Stop Date: 05/31/15 Status: Discontinued insulin aspart 8 unit, 0.08 mL, Route: SUB-Q, Drug form: SOLN, TID-Before Meals, Dosing Weight 92.273, kg, PRN Blood Glucose Results, Start date: 05/24/15 15:00:00, Duration: 30 day, Stop date: 06/23/15 14:59:00 Notes: Roll in palms of hands gently; Do not shake vigorously. (Same as: NovoLO G)"single patient use only" Stable for 28 days at room temperature.Expires in _ ____ days from Date Start Date: 05/24/15 Stop Date: 05/31/15 Status: Discontinued insulin aspart 4 unit, 0.04 mL, Route: SUB-Q, Drug form: SOLN, TID-Before Meals, Dosing Weight 92.273, kg, PRN Blood Glucose Results, Start date: 05/24/15 15:00:00, Duration: 30 day, Stop date: 06/23/15 14:59:00 Notes: Roll in palms of hands gently; Do not shake vigorously. (Same as: Rand Pérez)"single patient use only" Stable for 28 days at room temperature.Expires in _ ____ days from Date Start Date: 05/24/15 Stop Date: 05/31/15 Status: Discontinued Iodosorb 0.9% topical gel 1 appl, Route: TOP, Daily, Drug form: GEL, Start date: 05/25/15 9:00:00, Duratio n: 30 day, Stop date: 06/23/15 9:00:00 Start Date: 05/25/15 Stop Date: 05/26/15 Status: Voided With Results Lantus 20 unit, SUB-Q, Bedtime, 0 Refill(s) Start Date: 05/24/15 Status: Ordered Levemir 5 unit, 0.05 mL, Route: SUB-Q, Drug form: INJ, Bedtime, Dosing Weight 92.273, kg , Start date: 05/24/15 21:00:00, Stop date: 06/22/15 21:00:00 Notes: Same as TraceyirDo not hold insulin without contacting prescriber "single patient use only" Start Date: 05/24/15 Stop Date: 05/26/15 Status: Discontinued Liquid Vitamin D-3 See Instructions, patient takes gel caps, 0 Refill(s) Special Instructions: patient takes gel caps Start Date: 05/24/15 Stop Date: 05/24/15 Status: Deleted LR IV 1,000 mL 1,000 mL, Rate: 25 ml/hr, Infuse over: 40 hr, Route: IV, Dosing Weight 94.205 kg , Total Volume: 1,000, Start date: 05/29/15 14:11:00, Duration: 30 day, Stop sarah e: 06/28/15 14:10:00 Start Date: 05/29/15 Stop Date: 05/31/15 Status: Discontinued magnesium oxide 250 mg oral tablet 250 mg=1 tab, PO, Bedtime, 0 Refill(s) Start Date: 05/24/15 Status: Ordered milk thistle oral capsule 1,000 mg=, BID, 0 Refill(s) Start Date: 05/24/15 Status: Ordered morphine Sulfate 4 mg, 2 mL, Route: IVP, Drug form: INJ, Q4H, Dosing Weight 92.273, kg, PRN Pain Score 7-10, Start date: 05/24/15 14:48:00, Duration: 30 day, Stop date: 06/23/15 14:47:00 Notes: (Same as:MORPhine Sulfate) Start Date: 05/24/15 Stop Date: 05/31/15 Status: Discontinued non-formulary 1,200 mg=, PO, BID, Tart Ugalde Extract for inflammation, Refill(s) 0 Special Instructions: Tart Ugalde Extract for inflammation Start Date: 05/24/15 Status: Ordered Non-Formulary Home Medication 2 cap, PO, BID, Refill(s) 0 Start Date: 05/24/15 Status: Ordered NS 1,000 mL 1,000 mL, Rate: 100 ml/hr, Infuse over: 10 hr, Route: IV, Dosing Weight 92.273 k g, Total Volume: 1,000, Start date: 05/24/15 15:29:00, Duration: 1 day, Stop sarah e: 05/25/15 15:28:00 Start Date: 05/24/15 Stop Date: 05/25/15 Status: Completed ondansetron 4 mg, 2 mL, Route: IVP, Drug form: INJ, Q6H, Dosing Weight 92.273, kg, PRN Nause a & Vomiting, Start date: 05/24/15 14:48:00, Duration: 30 day, Stop date: 06/23/15 14:47:00 Notes: (Same as: Zofran) MEDICATION WASTE Product Size: 4 mgProduct Was bishnu: ___ mg Start Date: 05/24/15 Stop Date: 05/31/15 Status: Discontinued Please order Iodosorb from [facility] not from pharmacy Please order Iodosorb from [facility] not from pharmacy, Attn Notice, Drug form: MN SC, Route: MISC, Daily, 05/25/15 9:00:00, Duration: 30 day, Stop date: 06/23/15 9:00:00 Start Date: 05/25/15 Stop Date: 05/26/15 Status: Discontinued potassium gluconate 595 mg oral tablet 1,190 mg=2 tab, PO, Bedtime, # 100 tab, 0 Refill(s) Start Date: 05/24/15 Status: Ordered Super B Complex oral tablet 2 tab, PO, Daily, 0 Refill(s) Start Date: 05/24/15 Stop Date: 05/24/15 Status: Deleted Super B Complex oral tablet 2 tab, PO, Daily, # 30 tab, 0 Refill(s) Start Date: 05/24/15 Status: Ordered Tart Ugalde Tart Ugalde, Refill(s) 0 Start Date: 05/24/15 Stop Date: 05/24/15 Status: Deleted thiamine See Instructions, BID, 0 Refill(s) Special Instructions: BID Start Date: 05/24/15 Stop Date: 05/24/15 Status: Deleted Tylenol with Codeine #3 oral tablet 1 tab, PO, Q6H, PRN Pain Score 1-3, # 24 tab, 0 Refill(s) Start Date: 05/31/15 Stop Date: 06/01/15 Status: Completed Tylenol with Codeine #3 oral tablet 1 tab, Route: PO, Drug Form: TAB, Dosing Weight 94.205, kg, Q6H, PRN Pain Score 1-3, Start date: 05/31/15 16:10:00, Duration: 30 day, Stop date: 06/30/15 16:09: 00 Notes: Do not exceed 4gm/day of acetaminophen. (Same as: Tylenol with Codeine # 3) Start Date: 05/31/15 Stop Date: 05/31/15 Status: Discontinued vancomycin 1.25 gm, 250 mL, Route: IVPB, Drug form: INJ, [id number], Dosing Weight 92.273, kg, Start date: 05/25/15 4:00:00, Duration: 30 day, Stop date: 06/23/15 16:00:00 Notes: TIME CRITICAL MEDICATIONSame as: Vancocin-NS (premixed)Infusion rate< 1000 mg: infuse over 1 [id number] - 1500 mg: infuse over 1.5 [id number] - 2000 mg: infuse over 2 hours> 2001 mg: infuse over 2.5 hours Start Date: 05/25/15 Stop Date: 05/31/15 Status: Discontinued vancomycin 2 gm, 500 mL, Route: IVPB, Drug form: SOLN, ONCE, Dosing Weight 92.273, kg, Prio rity: STAT, Start date: 05/24/15 11:13:00, Stop date: 05/24/15 11:13:00 Notes: TIME CRITICAL MEDICATIONSame as: Vancocin Infusion rate< 1000 mg: infuse over 1 [id number] - 1500 mg: infuse over 1.5 [id number] - 2000 mg: infuse over 2 hours> 2001 mg: infuse over 2.5 hours Start Date: 05/24/15 Stop Date: 05/24/15 Status: Completed vancomycin 2 gm, Route: IVPB, Drug form: INJ, Q12H, Dosing Weight 92.273, kg, Priority: STA T, Start date: 05/24/15 14:48:00, Duration: 30 day, Stop date: 06/23/15 9:00:00 Start Date: 05/24/15 Stop Date: 05/24/15 Status: Deleted Vicoprofen 7.5 mg-200 mg oral tablet 1 tab, Route: PO, Drug Form: TAB, Dosing Weight 94.205, kg, Q6H, PRN Pain Score 4-6, Start date: 05/28/15 15:47:00, Duration: 30 day, Stop date: 06/27/15 15:46: 00 Notes: (Same as: Vicoprofen) Start Date: 05/28/15 Stop Date: 05/31/15 Status: Discontinued Vicoprofen 7.5 mg-200 mg oral tablet 1 tab, PO, Q6H, 0 Refill(s) Start Date: 05/24/15 Status: Ordered Vitamin B1 250 mg, PO, BID, 0 Refill(s) Start Date: 05/24/15 Status: Ordered Vitamin D3 2000 intl units oral capsule 2,000 IntlUnit=1 cap, PO, BID, # 100 cap, 3 Refill(s) Start Date: 05/24/15 Status: Ordered ZyrTEC See Instructions, Daily, 0 Refill(s) Special Instructions: Daily Start Date: 05/24/15 Stop Date: 05/24/15 Status: Deleted Results ELECTROLYTES 1 2 3 Most recent to oldest [Reference Range]: 135 mEq/L (05/27/15:34 AM) 140 mEq/L (05/25/15 4:15 AM) 136 mEq/L (05/24/15 11:17 AM) Sodium Lvl [135-145 mEq/L] 4.5 mEq/L (05/27/15 6:34 AM) 4.3 mEq/L (05/25/15 4:15 AM) 3.9 mEq/L (05/24/15 11:17 AM) Potassium Lvl [3.5-5.1 mEq/L] 103 mEq/L (05/27/15:34 AM) 106 mEq/L (05/25/15 4:15 AM) 101 mEq/L (05/24/15:17 AM) Chloride Lvl [95-109 mEq/L] 25 mEq/L (05/27/15:34 AM) 26 mEq/L (05/25/15:15 AM) 27 mEq/L (05/24/15:17 AM) CO2 [24-32 mEq/L] 11.5 mEq/L (05/27/15:34 AM) 12.3 mEq/L (05/25/15:15 AM) 11.9 mEq/L (05/24/15 11:17 AM) AGAP [10.0-20.0 mEq/L] CHEM PANEL 1 2 3 Most recent to oldest [Reference Range]: 1.0 mg/dL (05/27/15:34 AM) 1.1 mg/dL (05/25/15 4:15 AM) 1.3 mg/dL (05/24/15 11:17 AM) Creatinine Lvl [0.5-1.4 mg/dL] 80 mL/min/1.73m2 1 *NA* (05/27/15:34 AM) 72 mL/min/1.73m2 2 *NA* (05/25/15 4:15 AM) 58 mL/min/1.73m2 3 *NA* (05/24/15 11:17 AM) eGFR 14 mg/dL (05/27/15 6:34 AM) 21 mg/dL (05/25/15 4:15 AM) 24 mg/dL *HI* (05/24/15 11:17 AM) BUN [7-22 mg/dL] 19 (05/25/15 4:15 AM) 18 (05/24/15 11:17 AM) B/C Ratio [6-25] 132 mg/dL *HI* (05/27/15 6:34 AM) 55 mg/dL *LOW* (05/25/15 4:15 AM) 58 mg/dL *LOW* (05/24/15 11:17 AM) Glucose Lvl [70-99 mg/dL] 6.0 g/dL *LOW* (05/25/15 4:15 AM) 7.8 g/dL (05/24/15 11:17 AM) Total Protein [6.4-8.4 g/dL] 2.8 g/dL *LOW* (05/25/15 4:15 AM) 3.4 g/dL *LOW* (05/24/15 11:17 AM) Albumin Lvl [3.5-5.0 g/dL] 3.2 g/dL (05/25/15 4:15 AM) 4.4 g/dL *HI* (05/24/15 11:17 AM) Globulin [2.0-4.0 g/dL] 0.9 (05/25/15 4:15 AM) 0.8 (05/24/15 11:17 AM) A/G Ratio [0.7-1.6] 8.5 mg/dL (05/27/15 6:34 AM) 8.2 mg/dL *LOW* (05/25/15 4:15 AM) 8.9 mg/dL (05/24/15 11:17 AM) Calcium Lvl [8.5-10.5 mg/dL] 22 unit/L (05/25/15 4:15 AM) 30 unit/L (05/24/15 11:17 AM) ALT [0-65 unit/L] 13 unit/L (05/25/15 4:15 AM) 20 unit/L (05/24/15 11:17 AM) AST [0-37 unit/L] 72 unit/L (05/25/15 4:15 AM) 84 unit/L (05/24/15 11:17 AM) Alk Phos [39-136 unit/L] 0.3 mg/dL (05/25/15 4:15 AM) 0.7 mg/dL (05/24/15 11:17 AM) Bili Total [0.2-1.3 mg/dL] 1.2 mMol/L (05/24/15 11:17 AM) Lactic Acid Lvl [0.5-2.2 mMol/L] 1Result [...] be mul tiplied by the estimated BMI. SPECIAL CHEMISTRY 1 2 3 Most recent to oldest [Reference Range]: 6.7 % *HI* (05/27/15 6:34 AM) Hgb A1C [<=5.6 %] URINE AND STOOL 1 2 3 Most recent to oldest [Reference Range]: Clear (05/24/15 11:04 PM) Slight *ABN* (05/24/15 11:20 AM) UA Turbidity [Clear] Ltyellow *NA* (05/24/15 11:04 PM) Nurys *NA* (05/24/15 11:20 AM) UA Color 5.0 (05/24/15 11:04 PM) 5.0 (05/24/15 11:20 AM) UA pH [5.0-8.0] 1.016 (05/24/15 11:04 PM) 1.018 (05/24/15 11:20 AM) UA Spec Grav [<=1.030] Negative mg/dL *NA* (05/24/15 11:04 PM) Negative mg/dL *NA* (05/24/15 11:20 AM) UA Glucose [Negative mg/dL] Negative (05/24/15 11:04 PM) Negative (05/24/15 11:20 AM) UA Blood [Negative] Negative mg/dL *NA* (05/24/15 11:04 PM) Negative mg/dL *NA* (05/24/15 11:20 AM) UA Ketones [Negative mg/dL] Negative mg/dL (05/24/15 11:04 PM) Negative mg/dL (05/24/15 11:20 AM) UA Protein [Negative mg/dL] <=1.0 mg/dL *NA* (05/24/15 11:04 PM) <=1.0 mg/dL *NA* (05/24/15 11:20 AM) UA Urobilinogen [0.1-1.0 mg/dL] Negative *NA* (05/24/15 11:04 PM) Negative *NA* (05/24/15 11:20 AM) UA Bili [Negative] Negative (05/24/15 11:04 PM) Negative (05/24/15 11:20 AM) UA Leuk Est [Negative] Negative (05/24/15 11:04 PM) Negative (05/24/15 11:20 AM) UA Nitrite [Negative] 1 /HPF (05/24/15 11:04 PM) 2 /HPF (05/24/15 11:20 AM) UA WBC [0-5 /HPF] <1 /HPF (05/24/15 11:04 PM) 2 /HPF (05/24/15 11:20 AM) UA RBC [0-2 /HPF] Occasional /HPF *NA* (05/24/15 11:20 AM) UA Bacteria [None Seen /HPF] None Seen *NA* (05/24/15 11:04 PM) None Seen *NA* (05/24/15 11:20 AM) UA Sq Epi 3 /LPF *HI* (05/24/15 11:20 AM) UA Hyal Cast [0-2 /LPF] Few /LPF *NA* (05/24/15 11:04 PM) Few /LPF *NA* (05/24/15 11:20 AM) UA Mucus [None Seen /LPF] IMMUNOLOGY 1 2 3 Most recent to oldest [Reference Range]: 60.4 mg/L *HI* (05/24/15 11:17 AM) CRP [<=2.9 mg/L] HEMATOLOGY 1 2 3 Most recent to oldest [Reference Range]: 10.6 K/CMM *HI* (05/27/15 6:34 AM) 9.6 K/CMM (05/25/15 4:15 AM) 12.3 K/CMM *HI* (05/24/15 11:17 AM) WBC [3.7-10.4 K/CMM] 3.27 M/CMM *LOW* (05/27/15 6:34 AM) 2.89 M/CMM *LOW* (05/25/15 4:15 AM) 3.40 M/CMM *LOW* (05/24/15 11:17 AM) RBC [4.70-6.10 M/CMM] 10.6 g/dL *LOW* (05/27/15:34 AM) 9.3 g/dL *LOW* (05/25/15 4:15 AM) 10.8 g/dL *LOW* (05/24/15:17 AM) Hgb [14.0-18.0 g/dL] 30.2 % *LOW* (05/27/15 6:34 AM) 26.7 % *LOW* (05/25/15 4:15 AM) 31.6 % *LOW* (05/24/15:17 AM) Hct [42.0-54.0 %] 92.1 fL (05/27/15:34 AM) 92.5 fL (05/25/15 4:15 AM) 92.9 fL (05/24/15:17 AM) MCV [80.0-94.0 fL] 32.5 pg *HI* (05/27/15:34 AM) 32.2 pg *HI* (05/25/15:15 AM) 31.8 pg *HI* (05/24/15:17 AM) MCH [27.0-31.0 pg] 35.3 g/dL (05/27/15:34 AM) 34.8 g/dL (05/25/15 4:15 AM) 34.2 g/dL (05/24/15:17 AM) MCHC [32.0-36.0 g/dL] 12.6 % (05/27/15:34 AM) 12.8 % (05/25/15:15 AM) 12.6 % (05/24/15:17 AM) RDW [11.5-14.5 %] 257 K/CMM (05/27/15 6:34 AM) 182 K/CMM (05/25/15 4:15 AM) 252 K/CMM (05/24/15 11:17 AM) Platelet [133-450 K/CMM] 8.4 fL (05/27/15 6:34 AM) 7.9 fL (05/25/15 4:15 AM) 8.0 fL (05/24/15 11:17 AM) MPV [7.4-10.4 fL] 71.9 % (05/27/15 6:34 AM) 75.1 % *HI* (05/25/15 4:15 AM) 79.8 % *HI* (05/24/15 11:17 AM) Segs [45.0-75.0 %] 16.9 % *LOW* (05/27/15 6:34 AM) 14.2 % *LOW* (05/25/15 4:15 AM) 11.5 % *LOW* (05/24/15 11:17 AM) Lymphocytes [20.0-40.0 %] 6.8 % (05/27/15 6:34 AM) 9.3 % (05/25/15 4:15 AM) 7.4 % (05/24/15 11:17 AM) Monocytes [2.0-12.0 %] 3.8 % (05/27/15 6:34 AM) 1.1 % (05/25/15 4:15 AM) 1.1 % (05/24/15 11:17 AM) Eosinophils [0.0-4.0 %] 0.6 % (05/27/15 6:34 AM) 0.3 % (05/25/15 4:15 AM) 0.2 % (05/24/15 11:17 AM) Basophils [0.0-1.0 %] 7.6 K/CMM (05/27/15 6:34 AM) 7.2 K/CMM (05/25/15 4:15 AM) 9.8 K/CMM *HI* (05/24/15 11:17 AM) Segs-Bands # [1.5-8.1 K/CMM] 1.8 K/CMM (05/27/15 6:34 AM) 1.4 K/CMM (05/25/15 4:15 AM) 1.4 K/CMM (05/24/15 11:17 AM) Lymphocytes # [1.0-5.5 K/CMM] 0.7 K/CMM (05/27/15 6:34 AM) 0.9 K/CMM *HI* (05/25/15 4:15 AM) 0.9 K/CMM *HI* (05/24/15 11:17 AM) Monocytes # [0.0-0.8 K/CMM] 0.4 K/CMM (05/27/15 6:34 AM) 0.1 K/CMM (05/25/15 4:15 AM) 0.1 K/CMM (05/24/15 11:17 AM) Eosinophils # [0.0-0.5 K/CMM] 0.1 K/CMM (05/27/15 6:34 AM) Basophils # [0.0-0.2 K/CMM] 79 mm/hr *HI* (05/24/15 11:17 AM) Sed Rate [0-15 mm/hr] 14.6 seconds (05/24/15 11:17 AM) PT [12.0-14.7 seconds] 1.13 (05/24/15 11:17 AM) INR [0.85-1.17] 38.4 seconds *HI* (05/24/15 11:17 AM) PTT [22.9-35.8 seconds] Immunizations No data available for this section Procedures Procedure Date Related Diagnosis Body Site Implantation of penile prosthesis Manipulation of deviated nasal septum Tonsillectomy Social History Social History Type Response Alcohol Current, Frequency: 1-2 times per year. Smoking Status Never smoker; Previous treatment: None; Concerns about tobacco use in household: No; Exposure to Tobacco Smoke None; Cigarette Smoking Last 365 Days No; Reg Smoking Cessation Counseling No Assessment and Plan Extracted from: Title: Clinical Document Author: Sue Cazares MD Date: 05/31/15 Ifectious Disease Progress Note [facility] Dr. Sue Cazares SUBJECTIVE Events reviewed. Met with the family/ OBJECTIVE Gen: alert, no acute distress, follow command HEENT: not pale, not icteric, normal cephalic, Neck: Supple, no jvd, CV: S1, S2, no murmurs Lung: clear bilateral course BS Abd: soft, bowel sound normal, no tenderness Ext: no edema Skin: no rash Neuro: no seizure, no local finding Vitals and Temp: VitalsTmp(F)[id number] 05/31 07:[id number]--- 05/31 03:[id number]--- 05/31 00:[id number]--- 05/30 19:[id number]--- 05/30 16:[id number]------ 24 Hr Tmax: 98.3F (36.83c) at 05/30 19:38Vital Signs are the last 5 in the past 48 hours. Input/Output RecordInOutBal 05/524hr Tot 0 0 0 4hr Tot 1362 0 1362 Physical Exam Labs (Last four charted values) WBC H 10.6(MAY 27)9.6(MAY 25)H 12.3(MAY 24) Hgb L 10.6(MAY 27)L 9.3(MAY 25)L 10.8(MAY 24) Hct L 30.2(MAY 27)L 26.7(MAY 25)L 31.6(MAY 24) Plt 257(MAY 27)182(MAY 25)252(MAY 24) Na 135(MAY 27)140(MAY 25)136(MAY 24) K 4.5(MAY 27)4.3(MAY 25)3.9(MAY 24) CO2 25(MAY 27)26(MAY 25)27(MAY 24) Cl 103(MAY 27)106(MAY 25)101(MAY 24) Cr 1.0(MAY 27)1.1(MAY 25)1.3(MAY 24) BUN 14(MAY 27)21(MAY 25)H 24(MAY 24) Glucose Random H 132(MAY 27)L 55(MAY 25)L 58(MAY 24) Ca 8.5(MAY 27)L 8.2(MAY 25)8.9(MAY 24) PT 14.6(MAY 24) INR 1.13(MAY 24) PTT H 38.4(MAY 24) Medications Scheduled Meds (10):atenolol (atenolol 25 mg oral tablet), cefepime + Sodium Chloride 0.9% IV 100 mL, cyclobenzaprine, docusate (Colace 100 mg oral capsule), enalapril, enoxaparin, gentamicin topical (gentamicin topical 0.1% cream), glipiZIDE (Glucotrol), metFORMIN (Glucophage), vancomycin Unscheduled Meds: None PRN Meds (15):Dextrose 50% in Water IV (Dextrose 50% Syringe), Dextrose 50% in Water IV (Dextrose 50% Syringe), HYDROcodone-ibuprofen (Vicoprofen 7.5 mg-200 mg oral tablet), glucagon, insulin aspart, insulin aspart, insulin aspart, insulin aspart, insulin aspart, insulin aspart, insulin aspart, insulin aspart, insulin aspart, morphine Sulfate, ondansetron One Time Meds: None Continuous Infusions (1):Lactated Ringers Injection IV 1,000 mL (LR IV 1,000 mL) ALL LABS REVIEW AND ALL RADIOLOGY REPORTS REVIEWED IMPRESSION om dm PLAN c p m dc plans Extracted from: Title: Clinical Document Author: Sue Cazares MD Date: 05/26/15 Ifectious Disease consult Note [facility] Dr. Sue Cazares SUBJECTIVE Events reviewed. CHIEF COMPLAINT HPI: HOME MEDS: ROS: General: no fever, no chills, no night sweats, no fatigue HENT: no visual changes, no hearing changes, no headache Pulmonary:no shortness of breath, no cough Cardiac:no arithmea, no chest pain GI: no nausea, no vomitting, no diarrhea : no urgency, no frequency Skin: no rash Neuro: no seizure activity, no focal weakness Psyc: no depression or anxiety Joints: no redness or swelling , no pain Muscular: no weakness or pain All other Systems: within normal limit Vitals and Temp: VitalsTmp(F)[id number] 05/26 08:[id number]------ 05/26 04:[id number]/[id number]------ 05/25 23:[id number]/7117------ 05/25 20:[id number]--- 05/25 15:[id number]--- 24 Hr Tmax: 98.9F (37.17c) at 05/25 15:00Vital Signs are the last 5 in the past 48 hours. Input/Output RecordInOutBal 4hr Tot 56 0 56 4hr Tot 1768 0 1768 Physical Exam Labs (Last four charted values) WBC 9.6(MAY 25)H 12.3(MAY 24) Hgb L 9.3(MAY 25)L 10.8(MAY 24) Hct L 26.7(MAY 25)L 31.6(MAY 24) Plt 182(MAY 25)252(MAY 24) Na 140(MAY 25)136(MAY 24) K 4.3(MAY 25)3.9(MAY 24) CO2 26(MAY 25)27(MAY 24) Cl 106(MAY 25)101(MAY 24) Cr 1.1(MAY 25)1.3(MAY 24) BUN 21(MAY 25)H 24(MAY 24) Glucose Random L 55(MAY 25)L 58(MAY 24) Ca L 8.2(MAY 25)8.9(MAY 24) PT 14.6(MAY 24) INR 1.13(MAY 24) PTT H 38.4(MAY 24) Medications Scheduled Meds (9):atenolol (atenolol 25 mg oral tablet), clindamycin + Sodium Chloride 0.9% IV 50 mL, cyclobenzaprine, docusate (Colace 100 mg oral capsule), enalapril, enoxaparin, glipiZIDE (Glucotrol), metFORMIN (Glucophage), vancomycin Unscheduled Meds: None PRN Meds (14):Dextrose 50% in Water IV (Dextrose 50% Syringe), Dextrose 50% in Water IV (Dextrose 50% Syringe), glucagon, insulin aspart, insulin aspart, insulin aspart, insulin aspart, insulin aspart, insulin aspart, insulin aspart, insulin aspart, insulin aspart, morphine Sulfate, ondansetron One Time Meds: None Continuous Infusions: None ALL LABS REVIEW AND ALL RADIOLOGY REPORTS REVIEWED IMPRESSION [id number] PLAN
--- OUTSIDE RECORDS SUMMARY | 2018-08-20 05:35 | XMS REPORT | CCD ---
Author Author Auto Generated Organization [facility] Address Unknown Phone Unavailable Care Team Providers Care Cooling Tower Operator Name Role Phone Heather Oakesvasile Gonsalez CP Allergies, Adverse Reactions, Alerts Substance Reaction Status NKDA Active Problem List Condition Effective Dates Status Diabetes mellitus Resolved Vital Signs Most recent to oldest [Reference Range]: 1 2 3 Height 180.34 cm (09/03/2013 06:54:00) Temperature Oral [96.4-99.1 DegF] 98.2 DegF (09/03/2013 06:54:00) Systolic Blood Pressure [90-140 mmHg] 135 mmHg (09/03/2013 10:49:00) 131 mmHg (09/03/2013 09:00:00) 153 mmHg *HI* (09/03/2013 06:54:00) Diastolic Blood Pressure [60-90 mmHg] 80 mmHg (09/03/2013 10:49:00) 84 mmHg (09/03/2013 09:00:00) 89 mmHg (09/03/2013 06:54:00) Respiratory Rate [14-20 BRMIN] 16 BRMIN (09/03/2013 10:49:00) 11 BRMIN *LOW* (09/03/2013 09:00:00) 18 BRMIN (09/03/2013 06:54:00) Peripheral Pulse Rate [60-100 bpm] 87 bpm (09/03/2013 06:54:00) Weight 95.455 kg (09/03/2013 06:54:00) Results CHEMISTRY Most recent to oldest [Reference Range]: 1 Sodium Lvl [135-145 mEq/L] 138 mEq/L (09/03/2013 07:05:00) Potassium Lvl [3.5-5.1 mEq/L] 4.0 mEq/L (09/03/2013 07:05:00) Chloride Lvl [95-109 mEq/L] 105 mEq/L (09/03/2013:05:00) CO2 [24-32 mEq/L] 27 mEq/L (09/03/2013:05:00) AGAP [10.0-20.0 mEq/L] 10.0 mEq/L (09/03/2013:05:00) Creatinine Lvl [0.5-1.4 mg/dL] 0.9 mg/dL (09/03/2013:05:00) eGFR 92 mL/min/1.73m2 1 *NA* (09/03/201305:00) BUN [7-22 mg/dL] 18 mg/dL (09/03/2013:05:00) Glucose Lvl [70-99 mg/dL] 158 mg/dL 2 *HI* (09/03/2013:05:00) Calcium Lvl [8.5-10.5 mg/dL] 9.1 mg/dL (09/03/2013:05:00) 1Result Comment: The eGFR is calculated using [...] be mul tiplied by the estimated BMI. 2Interpretive Data: Adult reference range values reflect the clinical guidelines of the [place] [employer]. HEMATOLOGY Most recent to oldest [Reference Range]: 1 WBC [3.7-10.4 K/CMM] 5.8 K/CMM (09/03/2013:05:00) RBC [4.70-6.10 M/CMM] 3.79 M/CMM *LOW* (09/03/2013:05:00) Hgb [14.0-18.0 g/dL] 11.8 g/dL *LOW* (09/03/2013 07:05:00) Hct [42.0-54.0 %] 34.9 % *LOW* (09/03/2013 07:05:00) MCV [80.0-94.0 fL] 92.3 fL (09/03/2013 07:05:00) MCH [27.0-31.0 pg] 31.3 pg *HI* (09/03/2013 07:05:00) MCHC [32.0-36.0 g/dL] 33.9 g/dL (09/03/2013 07:05:00) RDW [11.5-14.5 %] 13.4 % (09/03/2013 07:05:00) Platelet [133-450 K/CMM] 197 K/CMM (09/03/2013 07:05:00) MPV [7.4-10.4 fL] 8.6 fL (09/03/2013 07:05:00) Segs [45.0-75.0 %] 60.9 % (09/03/2013 07:05:00) Lymphocytes [20.0-40.0 %] 27.0 % (09/03/2013 07:05:00) Monocytes [2.0-12.0 %] 8.0 % (09/03/2013 07:05:00) Eosinophils [0.0-4.0 %] 3.7 % (09/03/2013 07:05:00) Basophils [0.0-1.0 %] 0.4 % (09/03/2013 07:05:00) Segs-Bands # [1.5-8.1 K/CMM] 3.5 K/CMM (09/03/2013 07:05:00) Lymphocytes # [1.0-5.5 K/CMM] 1.6 K/CMM (09/03/2013 07:05:00) Monocytes # [0.0-0.8 K/CMM] 0.5 K/CMM (09/03/2013 07:05:00) Eosinophils # [0.0-0.5 K/CMM] 0.2 K/CMM (09/03/2013 07:05:00) Basophils # [0.0-0.2 K/CMM] 0.0 K/CMM (09/03/2013 07:05:00) Procedures Procedures Date Related Diagnosis Tonsillectomy
--- NOTE | 2018-08-20 08:47 | Operative Report ---
DATE OF PROCEDURE: August 20, 2018 PREOPERATIVE DIAGNOSES 1. Chronic ulcer, left foot. 2. Plantarflex metatarsal, 2nd, left foot. 3. History of osteomyelitis. 4. 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 PROCEDURES 1. Excision of the ulcer with flap closure. 2. Metatarsal head osteotomy, left 2nd. 3. Integra graft in order to fill the deficit of the left 2nd space. PATHOLOGY: Bone cultures and sensitivities. The ulcer was sent for pathology. HEMOSTASIS: Pneumatic thigh tourniquet. ESTIMATED BLOOD LOSS: Less than 10 mL. MATERIALS: Integra graft. COMPLICATIONS: None. CONDITION: Stable. PROCEDURE IN DETAIL: Under mild sedation, the patient was brought to the operating room and placed on the operating table in the supine position. Following IV sedation, anesthesia was achieved by a general anesthetic. At this point, the left foot was scrubbed, prepped and draped in the usual aseptic manner. It was then lowered to the table after the pneumatic thigh tourniquet was inflated to 350 mmHg. Excision of ulcer with closure, left foot. Attention was then directed to the plantar aspect of the left foot where 2 semi-elliptical incisions were made overlying the ulcer. The incision was made in order to be able to rotate and translate the dermis in order to close the wound. The ulcer was excised in toto. It was then sent for pathology. At this point, attention was then directed to the prominent metatarsal at the 2nd where metatarsal osteotomy was done with an oscillating saw was made in order to remove the head and body of the metatarsal in order to take away the area of prominence and to prevent the ulcer from reforming. It was then passed from the operating table and sent for pathology. At this point, cultures and sensitivities on the bone were taken. The area was then flushed with copious amounts of normal saline solution with irrigation and Bacitracin 3000 units, and the pulse truck safety inspector. The void was then filled with an Integra graft. The area was then closed closing with 3-0 nylon and then 4-0 nylon. A clean dressing was applied. Tourniquet was deflated. There was noted to be hyperemic response to all the digits. The patient tolerated the procedure and anesthesia well. Wound VAC applied in PACU. He will be discharged home to be strictly nonweightbearing. Follow up with me and wound care, and to call the office for any questions or any problems arise. NIKO: 08/20/2018 08:18 Job#: [id number] ANIBAL
[2018-08-20 09:05] VITALS: BP 127/70
== END | disposition home or self-care (01) ==
LOC: EDBD → OR 05:30 → EDBD 07:00
PROVIDERS: ATTEND Podiatrist Foot & Ankle Surgery
DX: E11.621 Type 2 diabetes mellitus with foot ulcer (principal); E11.40 Type 2 diabetes mellitus with diabetic neuropathy, unspecified; E11.51 Type 2 diabetes mellitus with diabetic peripheral angiopathy without gangrene; M21.272 Flexion deformity, left ankle and toes; Z01.810 Encounter for preprocedural cardiovascular examination; Z01.812 Encounter for preprocedural laboratory examination; Z88.6 Allergy status to analgesic agent; Z79.84 Long term (current) use of oral hypoglycemic drugs
CPT/HCPCS: 14040; 28308; 36415 ×2; 80048; 82948; 85025; 87071; 87075; 87205; 88305; 93005; 97605; J1100; J2001; J2250; J2405; J3490; Q4104; J0690; J2710

== ENCOUNTER → 2018-08-26 | Outpatient (RCR) | payer MEDICARE ==
[~2018-08-26] MED LIST changes: -ACETAMINOPHEN 1000 MG/100 ML IV ONE; -BACITRACIN 50,000 UNIT VIAL ONE; -BUPIVACAINE HCL 0.5% INJ 30 ML VIAL INJ ONE; -CEFAZOLIN SOD 2 GM/D5W 50ML 50 ML IV ONE; -DEXAMETHASONE SOD PHOS INJ 4 MG/ML VIAL ONE; -EPHEDRINE SULFATE INJ 50 MG/10 ML SYR ONE; -FENTANYL CITRATE/PF 100MCG/2 ML INJ ONE; -GLYCOPYRROLATE INJ 1MG/ 5 ML SYR ONE; -LIDOCAINE HCL 2% LOCAL INJ 5 ML SDV VIAL INJ ONE; -MIDAZOLAM HCL 2 MG/2 ML VIAL ONE; -NEOSTIGMINE 1 MG/ML 10ML VIAL ONE; -ONDANSETRON HCL INJ 2 MG/ML VIAL ONE; -PROPOFOL IV EMULSION 10 MG/ML 20 ML VIAL ONE; -SEVOFLURANE INHAL SOLN 250 ML PEN BTL ONE
== END ==
LOC: EDBD → WCC 08-12 12:30
PROVIDERS: ATTEND Internal Medicine Infectious Disease
DX: E11.621 Type 2 diabetes mellitus with foot ulcer (principal); M86.172 Other acute osteomyelitis, left ankle and foot; L97.421 Non-pressure chronic ulcer of left heel and midfoot limited to breakdown of skin; I10 Essential (primary) hypertension; E78.2 Mixed hyperlipidemia; I48.2 Chronic atrial fibrillation

== ENCOUNTER 2018-09-11 13:11 | Outpatient (RCR) | payer MEDICARE | END 2018-09-25 | LOC: WCC 13:11 | PROVIDERS: ATTEND Internal Medicine Infectious Disease | DX: E11.621 Type 2 diabetes mellitus with foot ulcer (principal); M86.172 Other acute osteomyelitis, left ankle and foot; L97.421 Non-pressure chronic ulcer of left heel and midfoot limited to breakdown of skin; I10 Essential (primary) hypertension; E78.2 Mixed hyperlipidemia; I48.2 Chronic atrial fibrillation | CPT/HCPCS: 87071; 87075; 87205 ==

== ENCOUNTER 2018-10-07 15:29 | Outpatient (RCR) | payer MEDICARE ==
[~2018-10-07 15:29] MED LIST changes: +MINERAL OIL/PETROLAT/GLYCERI 6OZ BTL ONE; +MUPIROCIN 2% OINT 22 GM TUBE ONE
== END 2018-10-26 ==
LOC: WCC 15:29
PROVIDERS: ATTEND Internal Medicine Infectious Disease
DX: E11.621 Type 2 diabetes mellitus with foot ulcer (principal); M86.172 Other acute osteomyelitis, left ankle and foot; L97.421 Non-pressure chronic ulcer of left heel and midfoot limited to breakdown of skin; I10 Essential (primary) hypertension; E78.2 Mixed hyperlipidemia; I48.2 Chronic atrial fibrillation

== ENCOUNTER 2018-11-04 15:17 | Outpatient (RCR) | payer MEDICARE ==
[~2018-11-04 15:17] MED LIST changes: -MINERAL OIL/PETROLAT/GLYCERI 6OZ BTL ONE; -MUPIROCIN 2% OINT 22 GM TUBE ONE
== END 2018-11-26 ==
LOC: WCC 15:17
PROVIDERS: ATTEND Internal Medicine Infectious Disease
DX: E11.621 Type 2 diabetes mellitus with foot ulcer (principal); M86.172 Other acute osteomyelitis, left ankle and foot; L97.421 Non-pressure chronic ulcer of left heel and midfoot limited to breakdown of skin; I10 Essential (primary) hypertension; E78.2 Mixed hyperlipidemia; I48.2 Chronic atrial fibrillation

== ENCOUNTER 2019-12-20 13:40 | Outpatient (RCR) | payer MEDICARE ==
[2019-12-06 15:06] LABS: BASOPHILS # (AUTO) 0.1 (0.0-0.1); BASOPHILS % 0.7 % (0.0-1.0); EOSINOPHILS # (AUTO) 0.3 (0.0-0.4); EOSINOPHILS % 3.8 % (0.0-6.0); HEMATOCRIT 35.7 % (38.2-49.6); HEMOGLOBIN 11.8 g/dL (14.0-18.0); LYMPHOCYTES # (AUTO) 1.5 (1.0-3.2); LYMPHOCYTES % 20.1 % (18.0-39.1); MEAN CORPUSCULAR HEMOGLOBIN 31.4 pg (28-32); MEAN CORPUSCULAR HGB CONC 33.1 g/dL (31-35); MEAN CORPUSCULAR VOLUME 94.9 fL (81-99); MONOCYTES # (AUTO) 0.7 (0.2-0.8); MONOCYTES % 9.4 % (4.4-11.3); NEUTROPHILS % 65.9 % (38.7-80.0); PLATELET COUNT 232 x10e3/uL (140-360); RED BLOOD COUNT 3.76 x10e6/uL (4.3-5.7); RED CELL DISTRIBUTION WIDTH 13.1 % (11.7-14.4)
[2019-12-06 15:25] LABS: ALBUMIN 4.1 g/dL (3.5-5.0); ALBUMIN/GLOBULIN RATIO 1.1 (0.8-2.0); ANION GAP 15.7 mmol/L (8-16); CALCIUM 9.8 mg/dL (8.4-10.2); CREATININE, SERUM 1.61 mg/dL (0.72-1.25); POTASSIUM 4.7 mmol/L (3.5-5.1)
[~2019-12-20 13:40] MED LIST changes: +LIDOCAINE VISC 2% SOLN 15 ML UDC ONE
== END 2019-12-25 ==
LOC: EDBD → WCC 13:40
PROVIDERS: ATTEND Podiatrist Foot & Ankle Surgery
DX: E11.621 Type 2 diabetes mellitus with foot ulcer (principal); M86.172 Other acute osteomyelitis, left ankle and foot; L97.426 Non-pressure chronic ulcer of left heel and midfoot with bone involvement without evidence of necrosis; L97.529 Non-pressure chronic ulcer of other part of left foot with unspecified severity; I10 Essential (primary) hypertension; I48.20 Chronic atrial fibrillation, unspecified; E78.2 Mixed hyperlipidemia
CPT/HCPCS: 36415; 80053; 83036; 84134; 85025; 85651

== ENCOUNTER 2020-01-17 14:47 | Outpatient (RCR) | payer MEDICARE ==
[~2020-01-17 14:47] MED LIST changes: -LIDOCAINE VISC 2% SOLN 15 ML UDC ONE
== END 2020-01-25 ==
LOC: WCC 14:47
PROVIDERS: ATTEND Podiatrist Foot & Ankle Surgery
DX: E11.621 Type 2 diabetes mellitus with foot ulcer (principal); M86.172 Other acute osteomyelitis, left ankle and foot; L97.426 Non-pressure chronic ulcer of left heel and midfoot with bone involvement without evidence of necrosis; L97.529 Non-pressure chronic ulcer of other part of left foot with unspecified severity; I48.20 Chronic atrial fibrillation, unspecified; I10 Essential (primary) hypertension; E78.2 Mixed hyperlipidemia; W08.XXXA Fall from other furniture, initial encounter

== ENCOUNTER 2020-02-21 14:30 | Outpatient (RCR) | payer MEDICARE ==
[2020-01-31 14:51] LABS: BASOPHILS % 0.3 % (0.0-1.0); EOSINOPHILS # (AUTO) 0.2 (0.0-0.4); EOSINOPHILS % 1.9 % (0.0-6.0); HEMATOCRIT 29.9 % (38.2-49.6); HEMOGLOBIN 9.8 g/dL (14.0-18.0); LYMPHOCYTES # (AUTO) 1.1 (1.0-3.2); LYMPHOCYTES % 12.5 % (18.0-39.1); MEAN CORPUSCULAR HEMOGLOBIN 30.4 pg (28-32); MEAN CORPUSCULAR HGB CONC 32.8 g/dL (31-35); MEAN CORPUSCULAR VOLUME 92.9 fL (81-99); MONOCYTES # (AUTO) 1.2 (0.2-0.8); MONOCYTES % 12.9 % (4.4-11.3); NEUTROPHILS # (AUTO) 6.6 (2.1-6.9); NEUTROPHILS % 72.1 % (38.7-80.0); PLATELET COUNT 274 x10e3/uL (140-360); RED BLOOD COUNT 3.22 x10e6/uL (4.3-5.7); RED CELL DISTRIBUTION WIDTH 12.4 % (11.7-14.4)
== END 2020-02-24 ==
LOC: WCC 14:30
PROVIDERS: ATTEND Podiatrist Foot & Ankle Surgery
DX: E11.621 Type 2 diabetes mellitus with foot ulcer (principal); M86.172 Other acute osteomyelitis, left ankle and foot; L97.426 Non-pressure chronic ulcer of left heel and midfoot with bone involvement without evidence of necrosis; I10 Essential (primary) hypertension; I48.20 Chronic atrial fibrillation, unspecified; E78.2 Mixed hyperlipidemia; W08.XXXA Fall from other furniture, initial encounter
CPT/HCPCS: 10060; 36415; 83036; 84550; 85025; 85651; 86140

== ENCOUNTER 2020-03-13 14:08 | Outpatient (RCR) | payer MEDICARE | END 2020-03-26 | LOC: WCC 14:08 | PROVIDERS: ATTEND Podiatrist Foot & Ankle Surgery | DX: E11.621 Type 2 diabetes mellitus with foot ulcer (principal); M86.172 Other acute osteomyelitis, left ankle and foot; L97.426 Non-pressure chronic ulcer of left heel and midfoot with bone involvement without evidence of necrosis; L97.521 Non-pressure chronic ulcer of other part of left foot limited to breakdown of skin; I48.20 Chronic atrial fibrillation, unspecified; I10 Essential (primary) hypertension; B95.1 Streptococcus, group B, as the cause of diseases classified elsewhere; E78.2 Mixed hyperlipidemia; W08.XXXA Fall from other furniture, initial encounter ==

== ENCOUNTER 2020-04-10 12:57 | Outpatient (RCR) | payer MEDICARE ==
[~2020-04-10 12:57] MED LIST changes: +BACITRACIN 50,000 UNIT VIAL ONE; +BUPIVACAINE HCL 0.5% INJ 30 ML VIAL INJ ONE
== END 2020-04-25 ==
LOC: WCC 12:57
PROVIDERS: ATTEND Podiatrist Foot & Ankle Surgery
DX: E11.621 Type 2 diabetes mellitus with foot ulcer (principal); L97.426 Non-pressure chronic ulcer of left heel and midfoot with bone involvement without evidence of necrosis; L97.521 Non-pressure chronic ulcer of other part of left foot limited to breakdown of skin; M86.172 Other acute osteomyelitis, left ankle and foot; I48.20 Chronic atrial fibrillation, unspecified; I10 Essential (primary) hypertension; E78.2 Mixed hyperlipidemia; W08.XXXA Fall from other furniture, initial encounter